=== PATIENT | female | born 1945 | race Caucasian/White ===

== ENCOUNTER 2018-02-28 10:52 | Emergency (ER) | payer MEDICARE, OTHER, SELFPAY ==
[2018-02-28 10:55] VITALS: BP 142/75; PULSE 86; RESP 20; TEMP 36.6; O2SAT 97; BMI 28.4
--- NOTE | 2018-02-28 11:02 | XR_ITS ---
XR shoulder LT min 2V Ordering Physician: Talat Coley MD Patient Age: 72 years: Female HISTORY: ITS.REASON: L CHEST AND SHOULDER PAIN INCREASES WITH MOVEMENT TECHNIQUE: 3 view left shoulder COMPARISON :CXR February 2018 chest FINDINGS The left shoulder glenohumeral joint is intact. Humeral head and neck intact. AC joint intact. Upper left chest appears stable. This study actually provides a better view of the left lung base, which appears clearer on this study than on the today's chest film IMPRESSION: Negative left shoulder.. Mild demineralization
--- NOTE | 2018-02-28 11:02 | XR_ITS ---
XR chest 2V Ordering Physician: Talat Coley MD Patient Age: 72 years: Female HISTORY: ITS.REASON: L CHEST AND SHOULDER PAIN TECHNIQUE: 2 view chest COMPARISON :December 10 & December 25, 2015 FINDINGS No significant new findings are slight coarsening markings toward the left base but I tend to favor this reflects a mild chronic changes in the anterior fat pad pattern at the anterior left base which is progressed slightly over time but similar to previous studies. No nothing definitely acute. The heart ellie and mediastinal structures satisfactory right lung clear. Chest wall ribs unremarkable. T-spine unremarkable. IMPRESSION: . basically stable chest nothing definitely acute. Slight progression of Anterior fat pad over time which accounts for of minimal density towards anterior left base
[2018-02-28 11:16] LABS: Basophils # 0.1 K/mm3 (0-0.2); Basophils % 0.6 % (0.1-2.0); Eosinophils # 0.3 K/mm3 (0.0-0.4); Eosinophils % 4.2 % (0.1-12.0); Hematocrit 41.8 % (37.0-47.0); Hemoglobin 13.4 g/dL (12.2-16.2); Lymphocytes # 2.1 K/mm3 (0.7-4.5); Lymphocytes % 27.5 K/mm3 (10-50); Mean Corpuscular HGB Conc 32.1 g/dL (31.8-35.4); Mean Corpuscular Hemoglobin 29.6 pg (27.0-31.2); Mean Corpuscular Volume 92.1 fl (81-99); Mean Platelet Volume 7.9 fl (7.4-10.4); Monocytes # 0.5 K/mm3 (0.1-1.0); Monocytes % 6.2 % (1.7-9.3); Neutrophils # 4.6 K/mm3 (1.8-7.8); Neutrophils % 61.5 % (37.0-80.0); Platelet Count 294 K/mm3 (142-424); Red Blood Count 4.53 M/mm3 (4.20-5.40); White Blood Count 7.5 K/mm3 (4.8-10.8)
[2018-02-28 11:49] LABS: Alanine Aminotransferase 19 U/L (12-78); Albumin/Globulin Ratio 1.3 (1.1-1.8); Alkaline Phosphatase 85 U/L (46-116); Anion Gap 11.7 mEq/L (5-15); Aspartate Amino Transferase 17 U/L (15-37); Bilirubin,Total 0.5 mg/dL (0.2-1.0); Blood Urea Nitrogen 24 mg/dL (7-18); CKMB Relative Index 1.6 U/L (0-4.0); Calcium 9.5 mg/dL (8.5-10.1); Carbon Dioxide 30 mmol/L (21.0-32.0); Chloride 104 mmol/L (98-107); Creatine Kinase 107 U/L (26-192); Creatine Kinase MB 1.7 ng/ml (0.0-3.6); Creatinine Clearance Estimated 62 mL/min (0-300); Creatinine,Serum 1.05 mg/dL (0.55-1.02); Estimated Glomerular Filt Rate 52 ml/min (>60); GFR (African American) 63 ML/MIN (>60); Globulin 3.2 gm/dl (1.3-3.2); Glucose 87 mg/dL (74-106); Potassium 3.7 mmoL/L (3.5-5.1); Sodium 142 mmol/L (136-145); Total Protein,Serum 7.2 gm/dL (6.4-8.2); Troponin I < 0.02 ng/ml (0.00-0.06)
[2018-02-28 12:00] VITALS: BP 124/98; PULSE 70; RESP 18; TEMP 36.7; O2SAT 95
--- NOTE | 2018-02-28 12:12 | HMH.EDGENADL ---
ED Disposition Clinical Impression: Chest pain Left shoulder pain Qualifiers: Chronicity: acute Qualified Code(s): M25.512 - Pain in left shoulder Disposition: Home, Self-Care Condition on Discharge: Good Instructions: DI for Shoulder Pain, DI for Chest Pain Referrals: Carlitos Diaz APRN [Primary Care Provider] - Yasmany Rodríguez MD [Staff Physician] - Ashwin Crowell MD [Staff Physician] - Time of Disposition: 14:17 - Critical Care Critical Care Time: No Attestation: On 02/28/18, the high probability of a clinically significant, sudden or life threatening deterioration of the following system(s) required my full and direct attention, intervention and personal management. The time I documented below is in addition to time spent performing reported procedures but includes the following listed in this critical care notation. Medical Decision Making - Medical Records Medical records reviewed: Yes: I reviewed the patient's medical records. - Tavo Inquiry Pt receiving controlled substance: No Vital Signs: 02/28/18 10:55 02/28/18 12:00 02/28/18 12:36 Temperature 98 F 98.1 F Temperature Source Oral Oral Pulse Rate Pulse Rate [Right Radial] 86 70 69 Respiratory Rate 20 18 16 Blood Pressure Blood Pressure [Right Arm] 142/75 124/98 128/88 Blood Pressure Mean [Right Arm] 97 106 101 Blood Pressure Source [Right Arm] Automatic Cuff Automatic Cuff Blood Pressure Position [Right Arm] Supine Supine 02 Sat by Pulse Oximetry 97 95 100 Oxygen Delivery Method Room Air Room Air 02/28/18 13:55 02/28/18 14:44 Temperature 97.4 F L 98.2 F Temperature Source Oral Pulse Rate 71 Pulse Rate [Right Radial] 90 Respiratory Rate 16 18 Blood Pressure 143/67 Blood Pressure [Right Arm] 128/74 Blood Pressure Mean [Right Arm] 92 Blood Pressure Source [Right Arm] Automatic Cuff Blood Pressure Position [Right Arm] Supine 02 Sat by Pulse Oximetry 95 Oxygen Delivery Method Room Air Room Air - Lab Data Lab results reviewed: Yes: I reviewed the patient's lab results. Lab Results 02/28/18 11:00: WBC 7.5, RBC 4.53, Hgb 13.4, Hct 41.8, MCV 92.1, MCH 29.6, MCHC 32.1, RDW 13.0, Plt Count 294, MPV 7.9, Neut % (Auto) 61.5, Lymph % (Auto) 27.5, [place] % (Auto) 6.2, Eos % (Auto) 4.2, Baso % (Auto) 0.6, Neut # (Auto) 4.6, Lymph # (Auto) 2.1, [place] # (Auto) 0.5, Eos # (Auto) 0.3, Baso # (Auto) 0.1 02/28/18 11:00: Sodium 142, Potassium 3.7, Chloride 104, Carbon Dioxide 30, Anion Gap 11.7, BUN 24 H, Creatinine 1.05 H, Estimated Creat Clear 62, Estimated GFR 52 L, Est GFR ( Amer) 63, Glucose 87, Calcium 9.5, Total Bilirubin 0.5, AST 17, ALT 19, Alkaline Phosphatase 85, Total Creatine Kinase 107, CK-MB (CK-2) 1.7, CK-MB (CK-2) Rel Index 1.6, Troponin I < 0.02, Total Protein 7.2, Albumin 4.0, Globulin 3.2, Albumin/Globulin Ratio 1.3 02/28/18 13:20: Total Creatine Kinase 91, CK-MB (CK-2) 1.4, CK-MB (CK-2) Rel Index 1.5, Troponin I < 0.02 Result diagrams: 02/28/18 11:00 02/28/18 11:00 - Radiology Data #1 Image(s): Chest Image Reviewed: Yes I reviewed the patient's radiology results, Yes I reviewed the patient's radiology image, Yes I have reviewed radiologist's interpretation Preliminary Findings: Normal/NAD #2 Image(s): Shoulder (left) Image Reviewed: Yes I reviewed the patient's radiology results, Yes I reviewed the patient's radiology image, Yes I have reviewed radiologist's interpretation Preliminary Findings: Normal/NAD - ECG Data Tracing #1 I reviewed this ECG and interpreted as documented below: ECG normal with no acute: arrhythmias, ischemia, conduction abnormalities, chamber hypertrophy Normal Sinus Rhythm: Yes - Reevaluation(s) Time: 14:00 Reevaluation #1: Upon reevaluation patient appears stable medical condition, no acute distress. Advised patient to follow-up with both brim stretcher Dr. Crowell, as well as the orthopod Dr. Teagan, within the next 2 days. If unable to see either
[2018-02-28 12:36] VITALS: BP 128/88; PULSE 69; RESP 16; O2SAT 100
[2018-02-28 13:55] VITALS: BP 128/74; PULSE 90; RESP 16; TEMP 36.3; O2SAT 95
[2018-02-28 14:02] LABS: CKMB Relative Index 1.5 U/L (0-4.0); Creatine Kinase 91 U/L (26-192); Creatine Kinase MB 1.4 ng/ml (0.0-3.6); Troponin I < 0.02 ng/ml (0.00-0.06)
[2018-02-28 14:44] VITALS: BP 143/67; PULSE 71; RESP 18; TEMP 36.8; O2SAT 95
== END 2018-02-28 14:45 | disposition home or self-care (01) ==
PROVIDERS: Emergency Provider Emergency Medicine; Family Provider Emergency Medicine; PCP Nurse Practitioner Family
DX: R07.9 Chest pain, unspecified (principal); M25.512 Pain in left shoulder; J44.9 Chronic obstructive pulmonary disease, unspecified; Z79.82 Long term (current) use of aspirin
CPT/HCPCS: 71046; 73030; 80053; 82550; 82553; 84484; 85025; 93005; 99283

== ENCOUNTER → 2018-03-15 09:51 | Outpatient (CLI) | payer MEDICARE, OTHER, SELFPAY ==
--- NOTE | 2018-03-15 09:54 | CT_ITS ---
CT heart w calcium score INDICATION: ITS.REASON: left arm pain, dyspnea ORDERING PHYSICIAN: Ulysses Martinez MD PATIENT AGE: 72 years TECHNIQUE: Axial images are obtained without contrast. Sagittal and coronal reformatted images are reviewed as well. All CT scans at the facility use one or more dose reduction, viz: automated exposure control; ma/kV adjustment per patient size (including targeted exams where dose is matched to indication; i.e. head); or iterative reconstruction technique. FINDINGS: Coronary calcium score is 0 indicating very low cardiovascular disease risk. Incidental note is made of a 6 mm noncalcified nodule in the right perihilar region. There is a 3 mm noncalcified nodule in the left lower lobe. IMPRESSION: Coronary artery calcium score of 0 indicating very low cardiovascular disease risk Indeterminate 6 mm right upper lobe nodule. Consider [address] follow-up to confirm stability
== END ==
PROVIDERS: Family Provider Emergency Medicine; PCP Nurse Practitioner Family; Visit Provider Internal Medicine Cardiovascular Disease
DX: Z82.49 Family history of ischemic heart disease and other diseases of the circulatory system (principal); M25.512 Pain in left shoulder; R06.09 Other forms of dyspnea
CPT/HCPCS: 75571

== ENCOUNTER → 2018-03-21 06:18 | Outpatient (CLI) | payer MEDICARE, OTHER, SELFPAY ==
--- NOTE | 2018-03-21 06:20 | NM_ITS ---
CARDIOLITE SPECT MYOCARDIAL PERFUSION SCAN, REST AND STRESS: EXERCISE STRESS [facility] REVIEW QGS EF AND WALL MOTION EVALUATION: QPS - PERFUSION EVALUATION HISTORY: SOB DOSE: 10.09 mCi technetium 99m mibi intravenously at rest followed by 30.6 mCi technetium 99m mibi following the intravenous ministration of 0.4 mg of Lexiscan. Resting blood pressure is 160/76. Stress blood pressure 129/58. FINDINGS: Ejection fraction is calculated to be 81. Uniform myocardial activity for stress and rest. IMPRESSION: No scintigraphic evidence of Lexiscan-induced myocardial ischemia. Hyperdynamic ejection fraction normal wall motion
--- NOTE | 2018-03-21 06:20 | CA_ITS ---
PROCEDURE: INDICATIONS FOR THE TEST: Chest pain COPD+ Heart Murmur Tobacco Smoking Palpitations Fatigue Syncope Edema+ Hypertension Diabetes Mellitus Rheumatic Fever SOB+RAY+Obesity Hyperlipidemia Family History HD+ Additional History left arm pain PATIENT INFORMATION HEIGHT: 66 WEIGHT: 178 GENDER: Female B/P: 121/69 2-D/M-MODE INTERPRETATION: 2-D MEASUREMENTS OBSERVED VALUES IN CMS Right Ventricular Dimension (RVDd) 2.0 Interventricular Septum (Thickness)(IVsd) 1.1 Left Ventricular Internal Dimensions(LVIDd) 3.4 Left Ventricular Posterior Wall (Thickness)(LVPWd) 1.2 Aortic Root 2.7 Aortic Cusp Separation 2.0 Left Atrial Dimensions (LAD) 2.8 2D 1. Left atrium is mildly enlarged, left ventricle is normal size, there is mild concentric left ventricular hypertrophy, visually estimated ejection fraction 55% with no obvious regional wall motion abnormality. 2. The right atrium and right ventricle are normal size and contractility. 3. The aortic valve is minimally thickened and fibrosed. 4. The mitral and tricuspid valve are structurally normal. 5. The pulmonic valve is poorly visualized. 6. No significant pericardial effusion noted. DOPPLER INTERROGATION: Doppler interrogation of the aortic, mitral and tricuspid valvular presence of mild mitral and tricuspid regurgitation, tricuspid and jet velocity insufficient for calculation of the right ventricular systolic pressure, grade 1 diastolic dysfunction seen without tissue Doppler evidence of raised left atrial pressure. CONCLUSION: 1. Mildly enlarged left atrium, normal left ventricular size, mild concentric left ventricular hypertrophy, visually estimated ejection fraction 55% with no obvious regional wall motion abnormality, grade 1 diastolic dysfunction seen without tissue Doppler evidence of raised left atrial pressure. 2. Mild mitral and tricuspid regurgitation 3. No significant pericardial effusion noted.
--- NOTE | 2018-03-21 07:56 | HMH.ITSHM ---
aspirin breo ventolin
== END ==
PROVIDERS: Family Provider Emergency Medicine; PCP Nurse Practitioner Family; Visit Provider Internal Medicine Cardiovascular Disease
DX: R06.00 Dyspnea, unspecified (principal); M25.512 Pain in left shoulder; Z82.49 Family history of ischemic heart disease and other diseases of the circulatory system
CPT/HCPCS: 78452; 93017; 93306; A9502; J2785

== ENCOUNTER → 2018-08-01 11:17 | Outpatient (CLI) | payer MEDICARE, OTHER, SELFPAY | PROVIDERS: Visit Provider Physician Assistant | DX: R30.9 Painful micturition, unspecified (principal) | CPT/HCPCS: 87086; 87210 ==

== ENCOUNTER → 2019-10-21 11:14 | Outpatient (CLI) | payer MEDICARE, OTHER, SELFPAY ==
--- NOTE | 2019-10-21 11:20 | XR_ITS ---
PROCEDURE: XR CHEST 2V CLINICAL HISTORY: cough COMPARISON: CXR2V XR chest 2V from 02/28/2018 CXR2V XR chest 2V from 09/01/2018 XR CHEST 2V from 08/24/2019 FINDINGS: The cardiomediastinal silhouette and pulmonary vascularity are within normal limits. The lungs are clear without infiltrates, suspicious nodules, or pleural effusions. There are chronic changes in the left lung base. Degenerative change thoracic spine. IMPRESSION: No acute findings. Dictated by: Bret Cunningham MD 10/21/2019 13:13 Electronically signed by Bret Cunningham MD in [place] 10/21/2019 13:13
== END ==
PROVIDERS: PCP Emergency Medicine; Visit Provider Nurse Practitioner Family
DX: R05 Cough (principal); R06.2 Wheezing
CPT/HCPCS: 71046

== ENCOUNTER → 2019-11-18 11:13 | Outpatient (CLI) | payer MEDICARE, OTHER, SELFPAY ==
--- NOTE | 2019-11-18 11:17 | XR_ITS ---
PROCEDURE: XR CHEST 2V CLINICAL HISTORY: cough COMPARISON: CXR2V XR chest 2V from 09/01/2018 XR CHEST 2V from 08/24/2019 XR CHEST 2V from 10/21/2019 FINDINGS: The cardiomediastinal silhouette and pulmonary vascularity are within normal limits. The lungs are clear without infiltrates, suspicious nodules, or pleural effusions. No acute bony abnormalities. IMPRESSION: No acute findings. Dictated by: Russell Farley 11/18/2019 18:56 Electronically signed by Russell Farley in [place] 11/18/2019 18:56
== END ==
PROVIDERS: PCP Emergency Medicine; Visit Provider Nurse Practitioner Family
DX: R05 Cough (principal)
CPT/HCPCS: 71046

== ENCOUNTER → 2020-04-16 10:31 | Outpatient (CLI) | payer MEDICARE, OTHER, SELFPAY ==
--- NOTE | 2020-04-16 10:37 | XR_ITS ---
PROCEDURE: XR KNEE LT 3V CLINICAL INDICATION: Left knee pain COMPARISON: KNEE3R KNEE-3 VIEWS-RT from 02/27/2015 KNEE3R KNEE-3 VIEWS-RT from 09/01/2015 FINDINGS: No fracture or dislocation. No lytic or blastic change. There is normal mineralization. There are mild osteoarthritic changes of the medial compartment. There is a small suprapatellar effusion. Other findings:None. IMPRESSION: Mild osteoarthritis with small suprapatellar effusion Dictated by: Bret Cunningham MD 04/16/2020 12:09 Electronically signed by Bret Cunningham MD in [place] 04/16/2020 12:09
== END ==
PROVIDERS: PCP Emergency Medicine; Visit Provider Physician Assistant
DX: M25.562 Pain in left knee (principal)
CPT/HCPCS: 73562

== ENCOUNTER → 2020-04-30 16:39 | Outpatient (CLI) | payer MEDICARE, OTHER, SELFPAY ==
[2020-04-30 16:41] LABS: Microscopic, Urine URINE MICROSCOPIC (MICROSCOPIC)
[2020-04-30 16:49] LABS: Bilirubin,Urine Negative (Negative); Blood, Urine Negative (Negative); Glucose,Urine (UA) 1+ (Negative); Ketones,Urine 1+ (Negative); Leukocyte Esterase,Urine 1+ (Negative); Nitrate,Urine POSITIVE (Negative); PH,Urine 6.5 (5.0-8.5); Protein,Urine 3+ (Negative); Urobilinogen,Urine >=8.0 EU/dl (0.2)
[2020-04-30 17:25] LABS: Color,Urine Red (Yellow)
[2020-04-30 17:26] LABS: Appearance,Urine Turbid (Clear)
[2020-04-30 17:27] LABS: Bacteria,Urine Trace /lpf; RBC,Urine 50-100 #/hpf (0-3)
== END ==
PROVIDERS: Visit Provider Nurse Practitioner Family
DX: R30.0 Dysuria (principal)
CPT/HCPCS: 81001; 87086; 87088; 87186

== ENCOUNTER → 2020-05-06 16:52 | Outpatient (CLI) | payer MEDICARE, OTHER, SELFPAY | PROVIDERS: Visit Provider Physician Assistant | DX: N39.0 Urinary tract infection, site not specified (principal) | CPT/HCPCS: 87086 ==

== ENCOUNTER 2020-08-21 12:15 | Emergency (ER) | payer MEDICARE, OTHER, SELFPAY ==
[2020-08-21 12:24] VITALS: BP 141/65; PULSE 82; RESP 20; TEMP 36.7; O2SAT 97; BMI 28.4
--- NOTE | 2020-08-21 12:47 | HMH.EDUTC ---
[facility] [place] Disposition Clinical Impression: COPD exacerbation Disposition: Home, Self-Care Condition on Discharge: Good Instructions: DI for Chronic Obstructive Pulmonary Disease Additional Instructions: Drink plenty of fluids. Take tylenol or ibuprofen for pain or fever. Take the medications as directed. Continue to take your inhalers as prescribed. Follow up with your regular doctor. GO TO THE ER FOR ANY WORSENING SYMPTOMS Prescriptions: predniSONE [Deltasone 10mg tablet] 10 mg PO DAILY 9 Days #21 tab Transmission Status: Received by [id number] Benzonatate [Tessalon Perle 100mg Cap] 100 mg PO TIDP PRN #30 cap PRN Reason: Cough Transmission Status: Received by [facility] Azithromycin [Z-Kobi 250mg Tab*] 250 mg PO UD DOSE PK #6 tab Transmission Status: Received by [id number] Referrals: Carlos Mendieta MD [Primary Care Provider] - Time of Disposition: 12:56 Medical Decision Making - Medical Records Medical records reviewed: No: I reviewed the patient's medical records. - Tavo Inquiry Pt receiving controlled substance: No Vital Signs: 08/21/20 12:24 08/21/20 13:06 Temperature 98.0 F 98.0 F Temperature Source Oral Oral Pulse Rate 82 Pulse Rate [Radial] 82 Respiratory Rate 20 20 Blood Pressure 141/65 H Blood Pressure [Right Arm] 141/65 H Blood Pressure Mean [Right Arm] 90 Blood Pressure Source Automatic Cuff Blood Pressure Source [Right Arm] Automatic Cuff Blood Pressure Position Sitting Blood Pressure Position [Right Arm] Sitting 02 Sat by Pulse Oximetry 97 Oxygen Delivery Method Room Air Room Air [facility] [place] HPI - General Stated complaint: sob back pain Time Seen by Provider: 08/21/20 12:47 Mode of Arrival: Ambulatory Source of Information: Patient Limitations: No Limitations Description of Symptoms (Recalled from Triage Doc. by RN): States that her COPD is acting up. Has been coughing a lot and thinks it has done something to her back. HEENT Symptoms (Recalled from RN notes): No Resp Symptoms (Recalled from RN notes): Yes Skin Symptoms (Recalled from RN notes): No MS Symptoms (Recalled from RN notes): Yes Functional Status (Recalled from RN notes): wnl - History of Present Illness Provider Complaint: She c/o 3 days of worsening cough and chest congestion. She states that she has a history copd and she feels like she is getting a flare up. She denies any chest pain. - Related Data Home Medications Medication Instructions Recorded Confirmed Aspirin [Aspirin 81mg chewable 81 mg PO DAILY 02/28/18 07/09/20 tab] Previous Rx's Medication Instructions Recorded loratadine 10 mg tablet 10 mg PO DAILY #30 tab 09/10/18 fluticasone furoate 100 1 inh INHALATION DAILY #28 each 02/10/20 mcg-vilanterol 25 mcg/dose inhalation powder albuterol sulfate 90 mcg/actuation 2 puff INHALATION Q4-6H PRN #18 g 07/01/20 aerosol inhaler ipratropium 0.5 mg-albuterol 3 mg 3 ml INHALATION QID PRN #120 neb 07/01/20 (2.5 mg base)/3 mL nebulization soln levofloxacin 500 mg tablet 500 mg PO Q24H 10 Days #10 tab 07/01/20 diclofenac sodium 1 % topical gel 2 g TOPICAL QID PRN #100 g 07/09/20 Azithromycin [Z-Kobi 250mg Tab*] 250 mg PO UD DOSE PK #6 tab 08/21/20 Benzonatate [Tessalon Perle 100mg 100 mg PO TIDP PRN #30 cap 08/21/20 Cap] predniSONE [Deltasone 10mg tablet] 10 mg PO DAILY 9 Days #21 tab 08/21/20 Allergies Allergy/AdvReac Type Severity Reaction Status Date / Time No Known Allergies Allergy Verified 07/09/20 13:51 - Worker's Comp Is this a Worker's Comp case?: No [facility] History - Hepatitis A Screen Drug use history?: No High risk sexual behaviors?: No History of sexually transmitted infection?: No Currently employed?: No Childcare worker?: No Do you have indoor plumbing?: Yes Do you have electricity?: Yes Attestation statement:: This patient has been screened for Hepatitis A risk factors. I have reviewed the pa
[2020-08-21 13:06] VITALS: BP 141/65; PULSE 82; RESP 20; TEMP 36.7; O2SAT 97
== END 2020-08-21 13:07 | disposition home or self-care (01) ==
PROVIDERS: Emergency Provider Nurse Practitioner Family; PCP Emergency Medicine
DX: J44.1 Chronic obstructive pulmonary disease with (acute) exacerbation (principal); M54.6 Pain in thoracic spine; Z79.899 Other long term (current) drug therapy
CPT/HCPCS: G0463; 99201

== ENCOUNTER → 2020-08-24 19:25 | Outpatient (CLI) | payer MEDICARE, OTHER, SELFPAY | PROVIDERS: Visit Provider Physician Assistant | DX: N39.0 Urinary tract infection, site not specified (principal) | CPT/HCPCS: 87086 ==

== ENCOUNTER 2021-06-06 10:56 | Emergency (ER) | payer MEDICARE, OTHER, SELFPAY ==
[2021-06-06 10:57] VITALS: BP 147/78; PULSE 98; RESP 18; TEMP 36.7; O2SAT 96; BMI 30.4
[2021-06-06 11:10] VITALS: BP 147/78; PULSE 98; RESP 18; TEMP 36.7; O2SAT 96; BMI 30.4
--- NOTE | 2021-06-06 11:24 | XR_ITS ---
PROCEDURE INFORMATION: Exam: XR Chest Exam date and time: 06/06/2021 11:24 AM Age: 75 years old Clinical indication: Patient HX: Cough, copd, nonsmoker TECHNIQUE: Imaging protocol: XR of the chest. Views: 2 views. COMPARISON: CR XR CHEST 2V 11/18/2019 11:22 AM FINDINGS: Lungs: Unremarkable. No consolidation. Pleural spaces: Unremarkable. No pleural effusion. No pneumothorax. Heart/Mediastinum: Unremarkable. No cardiomegaly. Bones/joints: Unremarkable. IMPRESSION: No acute findings.
--- NOTE | 2021-06-06 11:37 | HMH.EDUTC ---
[facility] [place] Disposition Clinical Impression: COPD exacerbation Disposition: Home, Self-Care Condition on Discharge: Good Instructions: Chronic Obstructive Pulmonary Disease, DI for Chronic Obstructive Pulmonary Disease, Prednisone, Cefdinir Additional Instructions: ? Start antibiotic today. Be sure to complete entire prescription even if feeling better ? Monitor temp. Tylenol every 4 hours as needed and / or ibuprofen every 6 hours as needed ( As long as your primary care physician has told you that it ok to take both. For fever/aches/pains ER if no less than 101 despite Tylenol or Motrin ? Humidifier/vaporizer or hot steamy shower ? Inhaler every 4-6 hours as needed like we discussed. If unsure how to use it, ask pharmacist to demonstrate how. Should help open airways and improve cough, wheezing, and shortness of breath ? *Start steroid today. Helps with inflammation therefore, cough and wheezing. Follow directions on the package. Reviewed side effects. Patient reports taking them before. Follow up IMMEDIATELY for new or worsening of symptoms OR no noticeable improvement over the next 48-72 hours. 911 immediately for any life threatening symptoms such as chest pain or difficulty breathing Prescriptions: Cefdinir [Omnicef 300mg Capsule] 300 mg PO BID #20 cap Transmission Status: Received by [id number] predniSONE [Prednisone 20mg Tab] 20 mg PO BID 5 Days #10 tab Transmission Status: Received by [facility] Referrals: Isabela Parr PA [Primary Care Provider] - As needed Medical Decision Making - Tavo Inquiry Pt receiving controlled substance: No Tavo was queried for this patient: No Vital Signs: 06/06/21 10:57 06/06/21 11:10 06/06/21 12:22 Temperature 98.1 F 98.1 F 98.1 F Temperature Source Oral Oral Pulse Rate 98 H Pulse Rate [Right] 98 H 98 H Respiratory Rate 18 18 18 Blood Pressure 147/78 H Blood Pressure [Right Arm] 147/78 H 147/78 H Blood Pressure Mean [Right Arm] 101 101 Blood Pressure Source [Right Arm] Automatic Cuff Blood Pressure Position [Right Arm] Sitting 02 Sat by Pulse Oximetry 96 96 Oxygen Delivery Method Room Air Room Air Orders (Tests/Meds): ED MEDICATIONS Discontinued Medications Generic Name Dose Route Start Last Admin Trade Name Freq PRN Reason Stop Dose Admin Albuterol/Ipratropium 3 ml 06/06/21 11:57 06/06/21 12:07 Ipratropium/Albuterol 3 Ml Neb IH 06/06/21 11:58 3 ml ONCE ONE Administration - Radiology Data #1 Image(s): Chest Image Reviewed: Yes I reviewed the patient's radiology image w/the ED provider Discussed with ED physician no acute changes Medical Decision Narrative: Patient states that she has taken Prednisone in the past with out complications or reactions [facility] [place] HPI - General Stated complaint: sob Time Seen by Provider: 06/06/21 11:37 Mode of Arrival: Ambulatory Source of Information: Patient Limitations: No Limitations Description of Symptoms (Recalled from Triage Doc. by RN): PATIENT C/O SOA X 2 WEEKS. SHE WAS SEEN BY PCP ON 04/28/21 AND WAS GIVEN AMOXICILLIN, BUT STOPPED TAKING IT BECAUSE IT MADE HER SICK HEENT Symptoms (Recalled from RN notes): No Resp Symptoms (Recalled from RN notes): Yes Skin Symptoms (Recalled from RN notes): No MS Symptoms (Recalled from RN notes): No Functional Status (Recalled from RN notes): WNL - History of Present Illness Provider Complaint: Patient states that she thinks she is having an exacerbation of her COPD States that she does this sometimes and has to get some antibiotics and steriods to clear her up States that she seen her PCP about a month ago for this and was prescribed Amoxicillin but she stopped taking it because it upset her stomach States that she has been having sinus congestion, cough and feeling SOA at times - Related Data Home Medications Medication Instructions Recorded Confirmed Aspirin [Aspirin 81mg chewable 81 mg PO DAILY 02/28/18 06
[2021-06-06 12:22] VITALS: BP 147/78; PULSE 98; RESP 18; TEMP 36.7; O2SAT 96
== END 2021-06-06 12:38 | disposition home or self-care (01) ==
PROVIDERS: Emergency Provider Nurse Practitioner; PCP Physician Assistant
DX: J44.1 Chronic obstructive pulmonary disease with (acute) exacerbation (principal)
CPT/HCPCS: G0463; 71046; 99202

== ENCOUNTER 2021-08-03 09:31 | Emergency (ER) | payer MEDICARE, OTHER, SELFPAY ==
[2021-08-03 09:33] VITALS: BP 148/81; PULSE 90; RESP 18; TEMP 36.8; O2SAT 97; BMI 28.4
--- NOTE | 2021-08-03 10:00 | HMH.EDEXTP ---
ED Disposition Clinical Impression: Dvt femoral (deep venous thrombosis) Qualifiers: Chronicity: acute Laterality: left Qualified Code(s): I82.412 - Acute embolism and thrombosis of left femoral vein Disposition: Home, Self-Care Condition on Discharge: Fair Additional Instructions: Please follow-up with your primary care provider in about 3 to 4 days. Even if you feel well. Return to the emergency department immediately if you feel chest pain or shortness of breath. Take the medications as prescribed. Prescriptions: Apixaban [Eliquis 5mg tab] 5 mg PO BID #60 tab Transmission Status: Received by [id number] Referrals: Isabela Parr PA [Primary Care Provider] - - Critical Care Critical Care Time: No Attestation: On , the high probability of a clinically significant, sudden or life threatening deterioration of the following system(s) required my full and direct attention, intervention and personal management. The time I documented below is in addition to time spent performing reported procedures but includes the following listed in this critical care notation. Medical Decision Making - Medical Records Medical records reviewed: Yes: I reviewed the patient's medical records. - Tavo Inquiry Pt receiving controlled substance: No Vital Signs: 08/03/21 09:33 08/03/21 11:00 Temperature 98.3 F Temperature Source Oral Pulse Rate 78 Pulse Rate [Right] 90 Respiratory Rate 18 16 Blood Pressure 126/64 Blood Pressure [Right Arm] 148/81 H Blood Pressure Mean [Right Arm] 103 Blood Pressure Source Automatic Cuff Blood Pressure Position Sitting 02 Sat by Pulse Oximetry 97 98 Oxygen Delivery Method Room Air Room Air - Lab Data Lab results reviewed: Yes: I reviewed the patient's lab results. Lab Results 08/03/21 10:00: WBC 11.2 H, RBC 4.43, Hgb 12.7, Hct 40.3, MCV 91.0, MCH 28.6, MCHC 31.4 L, RDW 13.5, Plt Count 221, MPV 8.5, Neut % (Auto) 72.6, Lymph % (Auto) 17.8, [place] % (Auto) 6.8, Eos % (Auto) 2.2, Baso % (Auto) 0.5, Neut # (Auto) 8.1 H, Lymph # (Auto) 2.0, [place] # (Auto) 0.8, Eos # (Auto) 0.3, Baso # (Auto) 0.1 08/03/21 10:00: PT 11.0, INR 0.93, APTT 28.2 08/03/21 10:00: Sodium 138, Potassium 4.3, Chloride 103, Carbon Dioxide 28, Anion Gap 11.3, BUN 18 H, Creatinine 1.10 H, Estimated Creat Clear 57, Estimated GFR 49 L, Est GFR ( Amer) 59, Glucose 99, Calcium 9.4, Total Bilirubin 0.6, AST 26, ALT 12, Alkaline Phosphatase 89, Total Protein 6.7, Albumin 4.0, Globulin 2.7, Albumin/Globulin Ratio 1.5 Result diagrams: 08/03/21 10:00 08/03/21 10:00 Orders (Tests/Meds): ED MEDICATIONS Discontinued Medications Generic Name Dose Route Start Last Admin Trade Name Freq PRN Reason Stop Dose Admin Apixaban 5 mg 08/03/21 11:13 08/03/21 11:46 Apixaban 5mg Tablet PO 08/03/21 11:14 5 mg ONCE ONE Administration - Physician Consults Physician Consulted: Isabela Parr Time: 11:08 Comment/Response: Ms. Isabela Parr has agreed to see the patient in the office in follow-up and she has agreed with the plan of starting Eliquis. Medical Decision Narrative: The patient presents to the emergency department complaining of left lower extremity swelling and tenderness and pain. This has been ongoing for about 3 days. 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 Physical examination was highly suggestive of DVT. A venous Doppler was performed and showed extensive DVT. Therefore, the patient will have to be started on anticoagulation. The patient has no symptoms of pulmonary embolus at this time. Patient's creatinine is 1.1. Therefore, I feel that she is a candidate for Eliquis. I will discuss this with the patient's primary care physician prior to starting therapy. Extremity Problem HPI - General Chief complaint: Extremity Problem,Nontraumatic Stated complaint: left leg swollen Time Seen by Provider: 08/03/21 10:00 Mode of Arrival: Ambulatory Limitations
--- NOTE | 2021-08-03 10:02 | CA_ITS ---
APPROVED REPORT Left Lower Extremity Venous Study for DVT. [employer]er: MARLENE Indications Lower Extremity Pain: Left Lower Extremity Edema: Left Swelling and pain LLE (Calf) x 3 days. Patient denies trauma. Past History DVT : Left Date : 1999 Medications Aspirin 81 mg ASA daily Vein Imaging CFV (L): Thrombus, Non-Compressible FEM (L): Thrombus, Non-Compressible POP (L): Thrombus, Non-Compressible PTV (L): Thrombus GSV (L): Thrombus Peroneals (L):Thrombus GAS (L): Thrombus Findings DVT seen in CFV, SFV, POPV, PTV, PERV, gastrocnemius and soleal veins. SVT seen in proxmial GSV in the left groin. Conclusion DVT seen in CFV, SFV, POPV, PTV, PERV, gastrocnemius and soleal veins. SVT seen in proxmial GSV in the left groin. Electronically signed by : Bret Cunningham MD 08/03/2021 16:05:35
--- NOTE | 2021-08-03 10:33 | PC.NURSE ---
US DONE AT BEDSIDE.
[2021-08-03 10:40] LABS: Chloride 103 mmol/L (98-107); Potassium 4.3 mmoL/L (3.5-5.1); Sodium 138 mmol/L (136-145)
[2021-08-03 10:42] LABS: Blood Urea Nitrogen 18 mg/dl (7-17); Creatinine Clearance Estimated 57 mL/min (50-200); Estimated Glomerular Filt Rate 49 ml/min (>60); GFR (African American) 59 ML/MIN (>60)
[2021-08-03 10:43] LABS: Alanine Aminotransferase 12 U/L (12-78); Albumin/Globulin Ratio 1.5 (1.1-1.8); Alkaline Phosphatase 89 U/L (38-126); Anion Gap 11.3 mEq/L (5-15); Aspartate Amino Transferase 26 U/L (14-36); Bilirubin,Total 0.6 mg/dl (0.2-1.3); Calcium 9.4 mg/dl (8.4-10.2); Carbon Dioxide 28 mmol/L (22.0-30.0); Globulin 2.7 g/dL (1.3-3.2); Glucose 99 mg/dl (74-100); Total Protein,Serum 6.7 g/dl (6.3-8.2)
[2021-08-03 10:50] LABS: Activated Partial Thrombo Time 28.2 seconds (22.8-30.6)
[2021-08-03 11:00] VITALS: BP 126/64; PULSE 78; RESP 16; O2SAT 98
[2021-08-03 11:01] LABS: INR 0.93 (0.9-1.1)
--- NOTE | 2021-08-03 11:35 | PC.NURSE ---
CONTACTED PHARMACY, PHARMACY TO TUBE DOWN JOSE MIGUELQUOBEY.
[2021-08-03 11:45] LABS: Basophils # 0.1 K/mm3 (0-0.2); Basophils % 0.5 % (0.1-2.0); Eosinophils # 0.3 K/mm3 (0.0-0.4); Eosinophils % 2.2 % (0.1-12.0); Hematocrit 40.3 % (37.0-47.0); Hemoglobin 12.7 g/dL (12.2-16.2); Lymphocytes % 17.8 % (10-50); Mean Corpuscular HGB Conc 31.4 g/dL (31.8-35.4); Mean Corpuscular Hemoglobin 28.6 pg (27.0-31.2); Mean Platelet Volume 8.5 fl (7.4-10.4); Monocytes # 0.8 K/mm3 (0.1-1.0); Monocytes % 6.8 % (1.7-9.3); Neutrophils # 8.1 K/mm3 (1.8-7.8); Neutrophils % 72.6 % (37.0-80.0); Platelet Count 221 K/mm3 (142-424); Red Blood Count 4.43 M/mm3 (4.20-5.40); Red Cell Distribution Width 13.5 % (11.5-17.5); White Blood Count 11.2 K/mm3 (4.8-10.8)
[2021-08-03 12:45] VITALS: BP 131/65; PULSE 82; RESP 16; TEMP 36.8; O2SAT 97
== END 2021-08-03 12:47 | disposition home or self-care (01) ==
PROVIDERS: Emergency Provider Emergency Medicine; PCP Physician Assistant
DX: I82.412 Acute embolism and thrombosis of left femoral vein (principal); J44.9 Chronic obstructive pulmonary disease, unspecified; Z86.718 Personal history of other venous thrombosis and embolism
CPT/HCPCS: 80053; 85025; 85610; 85730; 93971; 99283

== ENCOUNTER → 2021-09-07 12:04 | Outpatient (CLI) | payer MEDICARE, OTHER, SELFPAY ==
--- NOTE | 2021-09-07 12:25 | CT_ITS ---
PROCEDURE: CT LOWER LEG LT WO CON CLINICAL HISTORY: ACUTE EMBOLISM AND THROMBOSIS DEEP VEIN LT LOWER EXTREMITY COMPARISON: No exams were available for comparison TECHNIQUE: Axial images obtained with sagittal and coronal reformats. All CT scans at the facility use one or more dose reduction, viz: automated exposure control, ma/kV adjustment per patient size (including targeted exams where dose is matched to indication, i.e. head), or iterative reconstruction technique. FINDINGS: No acute fracture or dislocation. No lytic or blastic change. No abnormal fluid collections. No soft tissue masses. Minimal osteoarthritic changes are present at the knee. There is a small knee joint effusion. There is mild lateral subluxation of the patella. Varicosities are present in the lower leg and about the ankle IMPRESSION: Minimal osteoarthritic change of the knee with a small knee joint effusion Varicosities about ankle and lower leg Otherwise negative Dictated by: Bret Cunningham MD 09/08/2021 15:31 Bret Cunningham MD in [facility] 09/08/2021 15:31
[2021-09-07 12:35] LABS: Blood Urea Nitrogen 15 mg/dl (7-17); Estimated Glomerular Filt Rate 54 ml/min (>60); GFR (African American) 66 ML/MIN (>60)
--- NOTE | 2021-09-07 12:54 | CT_ITS ---
Procedure: CT ANGIO LE BI CLINICAL HISTORY: ACUTE EMBOLISM AND THROMBOSIS DEEP VEIN LT LOWER EXTREMITY COMPARISON: No exams were available for comparison TECHNIQUE: IV Contrast: 100ml Isovue 370 Axial images obtained with sagittal and coronal reformats. All CT scans at the facility use one or more dose reduction, viz: automated exposure control, ma/kV adjustment per patient size (including targeted exams where dose is matched to indication, i.e. head), or iterative reconstruction technique. FINDINGS: Abdominal aorta: The abdominal aorta and iliac arteries have an unremarkable appearance. No aneurysm or stenosis. Bilateral lower extremity runoff is unremarkable. No stenosis apparent. There is 3 vessel runoff to the ankle bilaterally. There is question of ostial stenosis involving the left renal artery as seen on the coronal images with some mild poststenotic dilatation the degree of stenosis is not able to be delineated Venous phase images demonstrates thrombus within the left femoral vein in the proximal mid and distal aspect with some minimal focal dilatation of the femoral vein distally at 1.5 cm and proximally at 1.3 cm. The thrombosis is not complete as there is some contrast outlining the thrombus. Veins below the knees are not well delineated. There is some minimal stranding of the fat around the femoral vein in the inguinal area and at the popliteal region consistent with thrombophlebitis. No obvious thrombus within the left external or common iliac vein. The left external and common iliac veins are small in nature. There is a small calcification within the left common femoral vein. Varicosities are present along the lower abdomen and pelvis anteriorly and in the lower leg on the left. There is mild subcutaneous edema about the left ankle. The girth of the left thigh and left leg is larger than the right side. Collateral veins are present in the left inguinal area and thigh Incidental note is made of a large gallstone at 2 cm. There are mild degenerative changes in the lumbar spine. There is right paracentral calcification at the L L1-L2 area and may be related to a disc osteophyte complex. Small right paracentral disc osteophyte complex noted at L2-L3 with bilateral foraminal narrowing. Partially calcified disc bulge is present at L5-S1. There is colonic diverticulosis but no evidence of diverticulitis. IMPRESSION: 1. 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 2. Unremarkable bilateral lower extremity arterial runoff. 3. The left external and common iliac veins are small but do not appear occluded. 4. Cholelithiasis. 5. Colonic diverticulosis Dictated by: Bret Cunningham MD 09/08/2021 15:51 Bret Cunningham MD in [facility] 09/08/2021 15:51
[2021-09-07 14:28] LABS: Anion Gap 11.1 mEq/L (5-15); Blood Urea Nitrogen 15 mg/dl (7-17); Calcium 9.4 mg/dl (8.4-10.2); Carbon Dioxide 27 mmol/L (22.0-30.0); Chloride 103 mmol/L (98-107); Estimated Glomerular Filt Rate 54 ml/min (>60); GFR (African American) 66 ML/MIN (>60); Glucose 96 mg/dl (74-100); Phosphorous 3.1 mg/dl (2.5-4.5); Potassium 4.1 mmoL/L (3.5-5.1); Sodium 137 mmol/L (136-145)
== END ==
PROVIDERS: Radiology Diagnostic Radiology; PCP Physician Assistant; Visit Provider Nurse Practitioner Family
DX: I82.492 Acute embolism and thrombosis of other specified deep vein of left lower extremity (principal)
CPT/HCPCS: 36415; 73700; 73701; 80069; 82565; 84520; Q9967

== ENCOUNTER 2021-10-01 09:29 | Emergency (ER) | payer MEDICARE, OTHER, SELFPAY ==
[2021-10-01] VITALS (7 sets, daily range): BP systolic 141–166; BP diastolic 57–73; PULSE 80–98; RESP 15–18; TEMP 36.8–37; O2SAT 95–100; BMI 27.4
--- NOTE | 2021-10-01 09:37 | HMH.EDGENADL ---
ED Disposition Clinical Impression: COPD exacerbation Acute bronchitis Qualifiers: Bronchitis organism: unspecified organism Qualified Code(s): J20.9 - Acute bronchitis, unspecified Disposition: Home, Self-Care Condition on Discharge: Good Instructions: DI for Chronic Obstructive Pulmonary Disease, DI for Acute Bronchitis Additional Instructions: Continue using breathing treatments 4 times a day. Zithromax and prednisone as prescribed. Follow-up with your primary care provider on Monday. Return to the emergency department if worsening shortness of breath. Prescriptions: predniSONE [Prednisone 20mg Tab] 20 mg PO BID #10 tab Transmission Status: Pending to [facility] Azithromycin [Zithromax 250mg tab] 250 mg PO DIRECTED #6 tab Transmission Status: Pending to [facility] Referrals: Isabela Parr PA [Primary Care Provider] - - Critical Care Critical Care Time: No Attestation: On 10/01/21, the high probability of a clinically significant, sudden or life threatening deterioration of the following system(s) required my full and direct attention, intervention and personal management. The time I documented below is in addition to time spent performing reported procedures but includes the following listed in this critical care notation. Medical Decision Making - Tavo Inquiry Pt receiving controlled substance: No Vital Signs: 10/01/21 09:30 10/01/21 10:20 10/01/21 10:50 Temperature 98.6 F Temperature Source Oral Pulse Rate 89 88 Pulse Rate [Right] 98 H Respiratory Rate 16 Blood Pressure [Right Arm] 166/73 H Blood Pressure Mean [Right Arm] 104 Blood Pressure Source [Right Arm] Automatic Cuff Blood Pressure Position [Right Arm] Sitting 02 Sat by Pulse Oximetry 98 Oxygen Delivery Method Room Air - Lab Data Lab Results 10/01/21 09:44: WBC 6.3, RBC 4.29, Hgb 12.3, Hct 39.3, MCV 91.5, MCH 28.6, MCHC 31.2 L, RDW 14.1, Plt Count 303, MPV 8.0, Neut % (Auto) 61.7, Lymph % (Auto) 22.6, [place] % (Auto) 4.4, Eos % (Auto) 10.2, Baso % (Auto) 1.2, Neut # (Auto) 3.9, Lymph # (Auto) 1.4, [place] # (Auto) 0.3, Eos # (Auto) 0.6 H, Baso # (Auto) 0.1 10/01/21 09:44: Sodium 138, Potassium 4.0, Chloride 104, Carbon Dioxide 27, Anion Gap 11.0, BUN 16, Creatinine 1.00, Estimated Creat Clear 60, Estimated GFR 54 L, Est GFR ( Amer) 66, Glucose 88, Calcium 9.3, Total Bilirubin 0.5, AST 27, ALT 18, Alkaline Phosphatase 74, Troponin I < 0.01, Total Protein 7.1, Albumin 4.3, Globulin 2.8, Albumin/Globulin Ratio 1.5 Result diagrams: 10/01/21 09:44 10/01/21 09:44 Orders (Tests/Meds): ED MEDICATIONS Discontinued Medications Generic Name Dose Route Start Last Admin Trade Name Freq PRN Reason Stop Dose Admin Albuterol/Ipratropium 3 ml 10/01/21 10:06 10/01/21 10:20 Ipratropium/Albuterol 3 Ml [facility] 10/01/21 10:07 3 ml ONCE ONE Administration Albuterol/Ipratropium 3 ml 10/01/21 10:44 10/01/21 10:50 Ipratropium/Albuterol 3 Ml [facility] 10/01/21 10:45 3 ml ONCE ONE Administration Methylprednisolone Sodium Succinate 125 mg 10/01/21 10:06 10/01/21 10:14 Methylprednisolone Sod Succ 125mg Vial IV 10/01/21 10:07 125 mg ONCE ONE Administration ORDERS Category Date Time Status Chest XR 2 view (NOT portable) [XR chest 2V] Stat Exams 10/01/21 09:51 Taken Troponin I Q3H Lab 10/01/21 13:00 Ordered Troponin I Q3H Lab 10/01/21 16:00 Ordered - Radiology Data #1 Image(s): Chest Image Reviewed: Yes I reviewed the patient's radiology image, Yes I have reviewed radiologist's interpretation Preliminary Findings: Normal/NAD - ECG Data Tracing #1 EKG interpreted by Octavio Sena MD: Rhythm: sinus Rate: 90 [place]: normal Ectopy: none Conduction: normal ST Segment Changes: none T Wave Changes: none Q Waves: none No evidence of acute ischemia or injury Normal electrocardiogram - Reevaluation(s) Time: 10:44 Reev
--- NOTE | 2021-10-01 09:51 | XR_ITS ---
PROCEDURE: XR CHEST 2V CLINICAL HISTORY: soa/cough COMPARISON: CR XR CHEST 2V from 10/21/2019 CR XR CHEST 2V from 11/18/2019 CR XR CHEST 2V from 06/06/2021 FINDINGS: The cardiomediastinal silhouette and pulmonary vascularity are within normal limits. The lungs are clear without infiltrates, suspicious nodules, or pleural effusions. Chronic patchy density is present in the left lung base not significantly changed and may represent pericardial fat pad attenuation. Degenerative changes thoracic spine. IMPRESSION: No acute findings. Dictated by: Bret Cunningham MD 10/01/2021 11:22 Bret Cunningham MD in [facility] 10/01/2021 11:22
--- NOTE | 2021-10-01 09:57 | ECG_ITS ---
APPROVED REPORT Exam: Resting ECG HR:90 bpm ECG Measurements Heart Rate 90 AXES GA 156 P 69 QRSd 72 QRS 72 QT 350 T 74 QTc 428 Conclusion Normal sinus rhythm Normal ECG Electronically signed by : Jabari James MD 10/01/2021 22:37:24
[2021-10-01 09:58] LABS: Basophils # 0.1 K/mm3 (0-0.2); Basophils % 1.2 % (0.1-2.0); Eosinophils # 0.6 K/mm3 (0.0-0.4); Eosinophils % 10.2 % (0.1-12.0); Hematocrit 39.3 % (37.0-47.0); Hemoglobin 12.3 g/dL (12.2-16.2); Lymphocytes # 1.4 K/mm3 (0.7-4.5); Lymphocytes % 22.6 % (10-50); Mean Corpuscular HGB Conc 31.2 g/dL (31.8-35.4); Mean Corpuscular Hemoglobin 28.6 pg (27.0-31.2); Mean Corpuscular Volume 91.5 fl (81-99); Monocytes # 0.3 K/mm3 (0.1-1.0); Monocytes % 4.4 % (1.7-9.3); Neutrophils # 3.9 K/mm3 (1.8-7.8); Neutrophils % 61.7 % (37.0-80.0); Platelet Count 303 K/mm3 (142-424); Red Blood Count 4.29 M/mm3 (4.20-5.40); Red Cell Distribution Width 14.1 % (11.5-17.5); White Blood Count 6.3 K/mm3 (4.8-10.8)
[2021-10-01 10:05] LABS: Alanine Aminotransferase 18 U/L (12-78); Albumin Level 4.3 g/dl (3.5-5.0); Albumin/Globulin Ratio 1.5 (1.1-1.8); Alkaline Phosphatase 74 U/L (38-126); Aspartate Amino Transferase 27 U/L (14-36); Bilirubin,Total 0.5 mg/dl (0.2-1.3); Blood Urea Nitrogen 16 mg/dl (7-17); Calcium 9.3 mg/dl (8.4-10.2); Carbon Dioxide 27 mmol/L (22.0-30.0); Chloride 104 mmol/L (98-107); Creatinine Clearance Estimated 60 mL/min (50-200); Estimated Glomerular Filt Rate 54 ml/min (>60); GFR (African American) 66 ML/MIN (>60); Globulin 2.8 g/dL (1.3-3.2); Glucose 88 mg/dl (74-100); Sodium 138 mmol/L (136-145); Total Protein,Serum 7.1 g/dl (6.3-8.2)
--- NOTE | 2021-10-01 10:15 | PC.NURSE ---
Called RT to request breathing treatment
[2021-10-01 10:21] LABS: Troponin I < 0.01 ng/ml (0.00-0.034)
--- NOTE | 2021-10-01 10:59 | PC.NURSE ---
RT at BS for second neb treatment
== END 2021-10-01 12:02 | disposition home or self-care (01) ==
PROVIDERS: Emergency Provider Emergency Medicine; PCP Physician Assistant
DX: J44.1 Chronic obstructive pulmonary disease with (acute) exacerbation (principal); J20.9 Acute bronchitis, unspecified
CPT/HCPCS: 71046; 80053; 84484; 85025; 93005; 96375; 99283

== ENCOUNTER 2021-10-22 09:44 | Emergency (ER) | payer MEDICARE, OTHER, SELFPAY ==
[2021-10-22] VITALS (9 sets, daily range): BP systolic 119–151; BP diastolic 60–88; PULSE 88–99; RESP 20; TEMP 36.6; O2SAT 93–97; BMI 28.4
--- NOTE | 2021-10-22 10:12 | XR_ITS ---
PROCEDURE: XR CHEST PORTABLE CLINICAL HISTORY: cough, soa COMPARISON: CR XR CHEST 2V from 11/18/2019 CR XR CHEST 2V from 06/06/2021 CR XR CHEST 2V from 10/01/2021 FINDINGS: The cardiomediastinal silhouette and pulmonary vascularity are within normal limits. The lungs are clear without infiltrates, suspicious nodules, or pleural effusions. No acute bony abnormalities. IMPRESSION: No acute findings. Dictated by: Bret Cunningham MD 10/22/2021 10:25 Bret Cunningham MD in [facility] 10/22/2021 10:25
--- NOTE | 2021-10-22 10:22 | PC.NURSE ---
Rad at bedside
[2021-10-22 10:26] LABS: Coronavirus 19, PCR Not Detected (NotDetected); Influenza A, PCR Not Detected (NotDetected); Influenza B, PCR Not Detected (NotDetected)
[2021-10-22 10:34] LABS: Basophils # 0.1 K/mm3 (0-0.2); Basophils % 1.2 % (0.1-2.0); Eosinophils # 0.7 K/mm3 (0.0-0.4); Eosinophils % 10.4 % (0.1-12.0); Hematocrit 38.4 % (37.0-47.0); Hemoglobin 12.4 g/dL (12.2-16.2); Lymphocytes # 1.3 K/mm3 (0.7-4.5); Lymphocytes % 18.2 % (10-50); Mean Corpuscular HGB Conc 32.1 g/dL (31.8-35.4); Mean Corpuscular Hemoglobin 28.8 pg (27.0-31.2); Mean Corpuscular Volume 89.5 fl (81-99); Mean Platelet Volume 8.3 fl (7.4-10.4); Monocytes # 0.3 K/mm3 (0.1-1.0); Monocytes % 4.9 % (1.7-9.3); Neutrophils # 4.6 K/mm3 (1.8-7.8); Neutrophils % 65.3 % (37.0-80.0); Platelet Count 313 K/mm3 (142-424); Red Blood Count 4.29 M/mm3 (4.20-5.40); Red Cell Distribution Width 14.5 % (11.5-17.5)
[2021-10-22 10:39] LABS: Chloride 104 mmol/L (98-107); Potassium 4.2 mmoL/L (3.5-5.1); Sodium 141 mmol/L (136-145)
[2021-10-22 10:41] LABS: Alanine Aminotransferase 18 U/L (12-78); Aspartate Amino Transferase 39 U/L (14-36); Blood Urea Nitrogen 18 mg/dl (7-17); Creatinine Clearance Estimated 57 mL/min (50-200); Estimated Glomerular Filt Rate 49 ml/min (>60); GFR (African American) 59 ML/MIN (>60)
[2021-10-22 10:42] LABS: Albumin Level 4.3 g/dl (3.5-5.0); Albumin/Globulin Ratio 1.7 (1.1-1.8); Alkaline Phosphatase 79 U/L (38-126); Anion Gap 10.2 mEq/L (5-15); Bilirubin,Total 0.4 mg/dl (0.2-1.3); Calcium 9.6 mg/dl (8.4-10.2); Carbon Dioxide 31 mmol/L (22.0-30.0); Globulin 2.6 g/dL (1.3-3.2); Glucose 90 mg/dl (74-100); Total Protein,Serum 6.9 g/dl (6.3-8.2)
--- NOTE | 2021-10-22 11:06 | HMH.EDGENADL ---
ED Disposition Clinical Impression: COPD exacerbation Acute bronchitis Qualifiers: Bronchitis organism: unspecified organism Qualified Code(s): J20.9 - Acute bronchitis, unspecified Disposition: Home, Self-Care Condition on Discharge: Fair Instructions: DI for Chronic Obstructive Pulmonary Disease, DI for Acute Bronchitis Additional Instructions: Continue nebulizer treatments every 4 hours. Take prednisone as prescribed, take first dose this evening. Stop taking doxycycline and start taking Zithromax, take first dose tomorrow. Call your primary care provider on Monday for follow-up. Return to the emergency department if worsening shortness of breath. Prescriptions: predniSONE [Prednisone 20mg Tab] 20 mg PO BID #10 tab Transmission Status: Pending to [facility] Azithromycin [Zithromax 250mg tab] 250 mg PO DAILY #4 tab Transmission Status: [facility] Referrals: Angeline Torres [Primary Care Provider] - - Critical Care Critical Care Time: No Attestation: On 10/22/21, the high probability of a clinically significant, sudden or life threatening deterioration of the following system(s) required my full and direct attention, intervention and personal management. The time I documented below is in addition to time spent performing reported procedures but includes the following listed in this critical care notation. Medical Decision Making - Medical Records Medical records reviewed: Yes: I reviewed the patient's medical records. MR Comment: I saw the patient here earlier this month for the same symptoms. She was treated with Zithromax and prednisone. I discussed this with her and she does seem to think that that helped. - Tavo Inquiry Pt receiving controlled substance: No Vital Signs: 10/22/21 09:44 10/22/21 10:00 10/22/21 10:45 Temperature 97.9 F Temperature Source Oral Pulse Rate 98 H 90 Pulse Rate [Right Radial] 99 H Respiratory Rate 20 Blood Pressure 140/71 132/71 Blood Pressure [Right Arm] 151/81 H Blood Pressure Mean [Right Arm] 104 Blood Pressure Source [Right Arm] Automatic Cuff Blood Pressure Position [Right Arm] Sitting 02 Sat by Pulse Oximetry 95 95 93 L Oxygen Delivery Method Room Air 10/22/21 11:00 10/22/21 11:19 10/22/21 11:30 Temperature Temperature Source Pulse Rate 92 H 89 91 H Pulse Rate [Right Radial] Respiratory Rate Blood Pressure 135/88 128/70 Blood Pressure [Right Arm] Blood Pressure Mean [Right Arm] Blood Pressure Source [Right Arm] Blood Pressure Position [Right Arm] 02 Sat by Pulse Oximetry 94 L 93 L 93 L Oxygen Delivery Method Room Air 10/22/21 12:00 10/22/21 13:12 Temperature Temperature Source Pulse Rate 89 88 Pulse Rate [Right Radial] Respiratory Rate Blood Pressure 132/69 Blood Pressure [Right Arm] Blood Pressure Mean [Right Arm] Blood Pressure Source [Right Arm] Blood Pressure Position [Right Arm] 02 Sat by Pulse Oximetry 94 L Oxygen Delivery Method - Lab Data Lab Results 10/22/21 10:15: WBC 7.0, RBC 4.29, Hgb 12.4, Hct 38.4, MCV 89.5, MCH 28.8, MCHC 32.1, RDW 14.5, Plt Count 313, MPV 8.3, Neut % (Auto) 65.3, Lymph % (Auto) 18.2, [place] % (Auto) 4.9, Eos % (Auto) 10.4, Baso % (Auto) 1.2, Neut # (Auto) 4.6, Lymph # (Auto) 1.3, [place] # (Auto) 0.3, Eos # (Auto) 0.7 H, Baso # (Auto) 0.1 10/22/21 10:15: Sodium 141, Potassium 4.2, Chloride 104, Carbon Dioxide 31 H, Anion Gap 10.2, BUN 18 H, Creatinine 1.10 H, Estimated Creat Clear 57, Estimated GFR 49 L, Est GFR ( Amer) 59, Glucose 90, Calcium 9.6, Total Bilirubin 0.4, AST 39 H, ALT 18, Alkaline Phosphatase 79, Total Protein 6.9, Albumin 4.3, Globulin 2.6, Albumin/Globulin Ratio 1.7 10/22/21 10:15: SARS-CoV-2 (PCR) Not detected, Influenza A Untype (PCR) Not detected, Influenza Type B (PCR) Not detected Result diagrams: 10/22/21 10:15 10/22/21 10:15 Orders (Tests/Meds): ED MEDICATIONS Generic
--- NOTE | 2021-10-22 13:08 | PC.NURSE ---
pt up to restroom
== END 2021-10-22 14:08 | disposition home or self-care (01) ==
PROVIDERS: Emergency Provider Emergency Medicine; PCP Nurse Practitioner Family
DX: J44.1 Chronic obstructive pulmonary disease with (acute) exacerbation (principal); J44.0 Chronic obstructive pulmonary disease with (acute) lower respiratory infection
CPT/HCPCS: 71045; 80053; 85025; 96365; 99283; C9803; J0456; U0003; U0005

== ENCOUNTER → 2021-11-04 14:07 | Outpatient (CLI) | payer MEDICARE, OTHER, SELFPAY ==
--- NOTE | 2021-11-04 14:11 | CT_ITS ---
PROCEDURE INFORMATION: Exam: CT Chest Without Contrast; Diagnostic Exam date and time: 11/04/2021 2:11 PM Age: 75 years old Clinical indication: Condition or disease; Other: Copd TECHNIQUE: Imaging protocol: Diagnostic computed tomography of the chest without contrast. Radiation optimization: All CT scans at this facility use at least one of these dose optimization techniques: automated exposure control; mA and/or kV adjustment per patient size (includes targeted exams where dose is matched to clinical indication); or iterative reconstruction. COMPARISON: CR XR CHEST PORTABLE 10/22/2021 10:25 AM FINDINGS: Thyroid: Heterogeneous thyroid gland, likely small hypoattenuating nodules up to 1 cm, see left lobe series 3, image 8. No significantly enlarged or calcified nodes requiring follow-up. Lungs: Several tiny nodules scattered throughout both lungs, including 4 mm nodule in the posterior right upper lobe lateral to the hilum series 3, images 34-35 and coronal series 601 image 36, versus prominent blood vessel. 3 mm nodule versus distended terminal blood vessel in the posterolateral right lower lobe series 3, image 36, not well seen on the reconstruction images due to slice acquisition. 4 mm right posterolateral basilar nodule series 3, image 59, coronal images 51-52 and sagittal image 21. Ovoid 5 mm right basilar nodule series 3, image 62 and coronal series 601, image 49. Lateral right middle lobe 3 mm nodular densities series 3, image 49 and series 601, image 26. In the left lung, a 4 mm posterolateral lower lobe nodule series 3, image 53, another tiny lateral left lower lobe nodule of 3 mm series 3, image 50, 2 possible tiny nodules of 4 mm series 3, image 45, a 3 mm nodule image 42, question 3 mm nodule lateral left lower lobe series 3, image 33, medial left upper lobe 3 mm nodule series 3, image 14. No large mass. No focal consolidation. Mild interstitial scarring in the lungs. Mild pulmonary hyperinflation, slightly flattened diaphragms seen on the lateral [facility] director topogram. Pleural spaces: Unremarkable. No significant pleural effusion. No pneumothorax. Heart: The heart is not enlarged. No significant pericardial effusion. Aorta: There is no aortic aneurysm.. A few calcified atherosclerotic plaques in the chest. Lymph nodes: Some calcified subcarinal lymph nodes and punctate calcified left hilar nodes.No significantly enlarged lymph nodes by short axis criteria. Bones/joints: Osteopenia.There are spinal degenerative changes, with multilevel disc narrrowing and spondylosis. There are prominent posterior disc-osteophyte complexes indenting the thecal sac at multiple levels, and narrowing the central spinal canal. This is most prominent at T3-T4, and T9-T10 through T12-L1, and there are some smaller soft disc bulges or protrusions also noted.There is no evidence of acute fracture. Soft tissues: There are no soft tissue masses or fluid collections. IMPRESSION: 1. Multiple tiny bilateral solid pulmonary nodules of 3-5 mm, as detailed above. If there is no known malignancy, for patients at low risk (minimal or absent history of smoking and of other known risk factors), no routine follow-up is indicated. For patients at high risk (history of smoking or of other known risk factors), consider optional CT Chest at 12 months. (Reference: Melissa) 2. Mild pulmonary hyperinflation and slight interstitial scarring consistent with history of COPD. No focal consolidation. 3. Prominent spinal degenerative changes, disc disease and spondylosis. 4. Additional nonemergency and chronic findings as above, including small thyroid nodules requiring no
== END ==
PROVIDERS: PCP Nurse Practitioner Family; Visit Provider Nurse Practitioner Family
DX: J44.9 Chronic obstructive pulmonary disease, unspecified (principal)
CPT/HCPCS: 71250

== ENCOUNTER 2022-01-08 10:19 | Observation (INO) | payer MEDICARE, OTHER, SELFPAY ==
[2022-01-08] VITALS (16 sets, daily range): BP systolic 102–137; BP diastolic 43–74; PULSE 84–125; RESP 16–26; TEMP 36.7–39.6; O2SAT 92–98; BMI 27.4; BMI 27.7
--- NOTE | 2022-01-08 10:31 | PC.NURSE ---
COVID swab collected by nurse and sent to lab
--- NOTE | 2022-01-08 10:34 | XR_ITS ---
PROCEDURE INFORMATION: Exam: XR Chest Exam date and time: 01/08/2022 10:34 AM Age: 76 years old Clinical indication: Cough and shortness of breath; Additional info: Cough, congestion TECHNIQUE: Imaging protocol: XR of the chest. Views: 2 views. COMPARISON: CT CHEST WO CON 11/04/2021 2:14 PM FINDINGS: Lungs: Opacities in both bases may represent atelectasis or pneumonia.. Pleural spaces: Unremarkable. No pleural effusion. No pneumothorax. Heart/Mediastinum: Unremarkable. No cardiomegaly. Bones/joints: Unremarkable. IMPRESSION: Opacities in both bases may represent atelectasis or pneumonia..
--- NOTE | 2022-01-08 10:37 | HMH.EDGENADL ---
ED Disposition Clinical Impression: Community acquired pneumonia Qualifiers: Laterality: unspecified laterality Qualified Code(s): J18.9 - Pneumonia, unspecified organism Disposition: Admitted as Observation Condition on Discharge: [facility] - Critical Care Critical Care Time: No Attestation: On , the high probability of a clinically significant, sudden or life threatening deterioration of the following system(s) required my full and direct attention, intervention and personal management. The time I documented below is in addition to time spent performing reported procedures but includes the following listed in this critical care notation. Medical Decision Making - Tavo Inquiry Pt receiving controlled substance: No Vital Signs: 01/08/22 10:20 01/08/22 10:25 01/08/22 10:31 Temperature 100.4 F H Temperature Source Oral Pulse Rate 121 H 117 H Pulse Rate [Radial] 113 H Respiratory Rate 26 H Blood Pressure 137/44 L 112/57 L Blood Pressure [Right Arm] 137/44 L Blood Pressure Mean [Right Arm] 75 Blood Pressure Position [Right Arm] Sitting 02 Sat by Pulse Oximetry 98 97 97 Oxygen Delivery Method Room Air Room Air Room Air 01/08/22 11:00 01/08/22 11:30 01/08/22 12:01 Temperature 103.2 F H Temperature Source Oral Pulse Rate 106 H 117 H 125 H Pulse Rate [Radial] Respiratory Rate Blood Pressure 102/48 L 116/61 125/44 L Blood Pressure [Right Arm] Blood Pressure Mean [Right Arm] Blood Pressure Position [Right Arm] 02 Sat by Pulse Oximetry 96 95 95 Oxygen Delivery Method Room Air Room Air 01/08/22 12:30 01/08/22 13:00 01/08/22 13:15 Temperature 100.2 F H Temperature Source Oral Pulse Rate 105 H 101 H Pulse Rate [Radial] Respiratory Rate Blood Pressure 130/43 L 122/47 L Blood Pressure [Right Arm] Blood Pressure Mean [Right Arm] Blood Pressure Position [Right Arm] 02 Sat by Pulse Oximetry 93 L 92 L Oxygen Delivery Method - Lab Data Lab Results 01/08/22 10:30: SARS-CoV-2 (PCR) Not detected, Influenza A Untype (PCR) Not detected, Influenza Type B (PCR) Not detected 01/08/22 10:48: WBC 30.6 H*, RBC 4.30, Hgb 12.3, Hct 39.1, MCV 91.0, MCH 28.7, MCHC 31.5 L, RDW 14.5, Plt Count 289, MPV 8.9, Neut % (Auto) 91.2 H, Lymph % (Auto) 3.3 L, [place] % (Auto) 4.5, Eos % (Auto) 0.7, Baso % (Auto) 0.4, Neut # (Auto) 27.9 H, Lymph # (Auto) 1.0, [place] # (Auto) 1.4 H, Eos # (Auto) 0.2, Baso # (Auto) 0.1, Total Counted 100, Neutrophils % (Manual) 96 H, Lymphocytes % (Manual) 1 L, Monocytes % (Manual) 3, Platelet Estimate Normal 01/08/22 10:48: Sodium 131 L, Potassium 4.4, Chloride 101, Carbon Dioxide 25, Anion Gap 9.4, BUN 21 H, Creatinine 1.30 H, Estimated Creat Clear 46, Estimated GFR 40 L, Est GFR ( Amer) 48 L, Glucose 121 H, Calcium 8.3 L, Total Bilirubin 1.1, AST 36, ALT 21, Alkaline Phosphatase 60, Troponin I 0.03, Total Protein 6.5, Albumin 4.1, Globulin 2.4, Albumin/Globulin Ratio 1.7 01/08/22 11:37: Lactate 1.7 Result diagrams: 01/08/22 10:48 01/08/22 10:48 Orders (Tests/Meds): ED MEDICATIONS Generic Name Dose Route Start Last Admin Trade Name Freq PRN Reason Stop Dose Admin Acetaminophen 650 mg 01/08/22 13:03 Acetaminophen 325mg Tab PO 02/07/22 13:02 Q4HP PRN Fever or Mild Pain Albuterol/Ipratropium 3 ml 01/08/22 14:00 Ipratropium/Albuterol 3 Ml Neb IH 02/07/22 13:59 QIDRT JEANA Azithromycin 500 mg/ Sodium 250 mls @ 250 mls/hr 01/09/22 13:00 Chloride IV 01/22/22 12:59 Q24H JEANA Ceftriaxone Sodium 1 gm/ 50 mls @ 100 mls/hr 01/09/22 11:45 Sodium Chloride IV 01/22/22 11:44 Q24H JEANA Sodium Chloride 1,000 mls @ 50 mls/hr 01/08/22 13:03 Sod Chlor 0.9% 1000ml Bag IV 02/07/22 13:02 .Q20H JEANA Methylprednisolone Sodium Succinate 80 mg 01/08/22 19:00 Methylprednisolone Sod Succ 125mg Vial IV 02/07/22 18:59 Q8H JEANA Ondansetron HCl 4 mg 01/08/22 13:03 Ondansetron 4mg/2ml Vial
--- NOTE | 2022-01-08 10:51 | ECG_ITS ---
APPROVED REPORT Exam: Resting ECG HR:110 bpm ECG Measurements Heart Rate 110 AXES OH 153 P 60 QRSd 78 QRS 58 QT 286 T 56 QTc 351 Conclusion SINUS TACHYCARDIA ABNORMAL RHYTHM ECG UNCONFIRMED REPORT Electronically signed by : Jabari James MD 01/09/2022 14:34:43
--- NOTE | 2022-01-08 11:07 | PC.NURSE ---
pt to radiology
--- NOTE | 2022-01-08 11:16 | PC.NURSE ---
pt back from radiology and hooked back up to vital signs
[2022-01-08 11:17] LABS: Basophils # 0.1 K/mm3 (0-0.2); Basophils % 0.4 % (0.1-2.0); Eosinophils # 0.2 K/mm3 (0.0-0.4); Eosinophils % 0.7 % (0.1-12.0); Hematocrit 39.1 % (37.0-47.0); Hemoglobin 12.3 g/dL (12.2-16.2); Lymphocytes % 3.3 % (10-50); Mean Corpuscular HGB Conc 31.5 g/dL (31.8-35.4); Mean Corpuscular Hemoglobin 28.7 pg (27.0-31.2); Mean Platelet Volume 8.9 fl (7.4-10.4); Monocytes # 1.4 K/mm3 (0.1-1.0); Monocytes % 4.5 % (1.7-9.3); Neutrophils # 27.9 K/mm3 (1.8-7.8); Neutrophils % 91.2 % (37.0-80.0); Platelet Count 289 K/mm3 (142-424); Red Cell Distribution Width 14.5 % (11.5-17.5); White Blood Count 30.6 K/mm3 (4.8-10.8)
[2022-01-08 11:19] LABS: Chloride 101 mmol/L (98-107); Potassium 4.4 mmoL/L (3.5-5.1); Sodium 131 mmol/L (136-145)
[2022-01-08 11:22] LABS: Alanine Aminotransferase 21 U/L (12-78); Albumin Level 4.1 g/dl (3.5-5.0); Albumin/Globulin Ratio 1.7 (1.1-1.8); Alkaline Phosphatase 60 U/L (38-126); Anion Gap 9.4 mEq/L (5-15); Aspartate Amino Transferase 36 U/L (14-36); Bilirubin,Total 1.1 mg/dl (0.2-1.3); Blood Urea Nitrogen 21 mg/dl (7-17); Calcium 8.3 mg/dl (8.4-10.2); Carbon Dioxide 25 mmol/L (22.0-30.0); Creatinine Clearance Estimated 46 mL/min (50-200); Estimated Glomerular Filt Rate 40 ml/min (>60); GFR (African American) 48 ML/MIN (>60); Globulin 2.4 g/dL (1.3-3.2); Glucose 121 mg/dl (74-100); Total Protein,Serum 6.5 g/dl (6.3-8.2)
[2022-01-08 11:23] LABS: MANUAL DIFFERENTIAL MANUAL DIFFERENTIAL (MANUAL DIFF)
--- NOTE | 2022-01-08 11:31 | XR_ITS ---
PROCEDURE INFORMATION: Exam: XR Left Knee Exam date and time: 01/08/2022 11:31 AM Age: 76 years old Clinical indication: Injury or trauma; Fall; Blunt trauma; Knee; Left; Injury date: 01/08/22; Additional info: Fall, injury TECHNIQUE: Imaging protocol: XR Left knee. Views: 3 views. COMPARISON: CT ANGIO LE BI 09/07/2021 1:36 PM FINDINGS: Bones/joints: Mild Tricompartmental joint space narrowing and osteophyte formation consistent with degenerative changes. There is no evidence of acute fracture.There is no evidence of malalignment or dislocation. Soft tissues: Normal. IMPRESSION: 1. Mild Tricompartmental joint space narrowing and osteophyte formation consistent with degenerative changes. 2. There is no evidence of acute fracture.There is no evidence of malalignment or dislocation.
[2022-01-08 11:35] LABS: Troponin I 0.03 ng/ml (0.00-0.034)
[2022-01-08 11:49] LABS: Lymphocytes % 1 % (10-50); Monocytes % 3 % (2-9); Neutrophils % 96 % (42-76); Platelet Estimate Normal; Total Cells Counted 100
[2022-01-08 11:52] LABS: Lactic Acid 1.7 mmol/L (0.7-2.1)
[2022-01-08 11:57] LABS: Coronavirus 19, PCR Not Detected (NotDetected); Influenza A, PCR Not Detected (NotDetected); Influenza B, PCR Not Detected (NotDetected)
--- NOTE | 2022-01-08 12:01 | PC.NURSE ---
call was placed to chlorine plant operator about getting in touch with who is lease administration analyst for Dr. Mendieta. Dr. Strickland is the MD lease administration analyst. Awaiting call back from him.
--- NOTE | 2022-01-08 12:05 | PC.NURSE ---
Dr. Strickland called back at this time; speaking with Dr. Sena
--- NOTE | 2022-01-08 12:06 | PC.NURSE ---
Spoke with Surgical Tech about admission. Will let us know bed placement.
--- NOTE | 2022-01-08 13:00 | PC.NURSE ---
REPORT CALLED TO FLOOR
--- NOTE | 2022-01-08 13:11 | PC.NURSE ---
pt back from radiology
--- NOTE | 2022-01-08 13:28 | PC.NURSE ---
SRNA from [facility] came down to take the patient upstairs to her inpatient room.
--- NOTE | 2022-01-08 13:32 | PC.NURSE ---
Pt arrived to the floor at this time
--- NOTE | 2022-01-08 14:15 | PC.NURSE ---
pt has been admitted to the unit. She gets SOA with exertion but maintains saturation. SBA up to bathroom. Her skin was c/d/i. She denies any pain @ this time but reports having a fall @ home this morning. Her son lives with her. She states she has been out of her blood thinner for at least 2-3 weeks because insurance will not pay for it. Lungs diminished. edema to ble. LLE slightly worse. she reports a history of DVT in that left leg. pulses are good to BLE as well as color.
[2022-01-08 15:06] LABS: Troponin I 0.03 ng/ml (0.00-0.034)
--- NOTE | 2022-01-08 17:20 | PC.NURSE ---
ambulated pt to Bathroom. RA saturation maintained @ 95-96%
[2022-01-08 17:43] LABS: Troponin I 0.02 ng/ml (0.00-0.034)
--- NOTE | 2022-01-08 18:44 | PC.NURSE ---
pt sats remain stable on RA. 95% @ this time. c./o mild SOA with exertion.
[2022-01-09] VITALS (9 sets, daily range): BP systolic 112–129; BP diastolic 51–58; PULSE 77–120; RESP 16–20; TEMP 36.5–36.8; O2SAT 94–98; BMI 28.5
[2022-01-09 05:54] LABS: Basophils % 0.1 % (0.1-2.0); Eosinophils % 0.1 % (0.1-12.0); Hematocrit 34.5 % (37.0-47.0); Lymphocytes % 3.9 % (10-50); Mean Corpuscular HGB Conc 31.6 g/dL (31.8-35.4); Mean Corpuscular Hemoglobin 28.9 pg (27.0-31.2); Mean Corpuscular Volume 91.6 fl (81-99); Mean Platelet Volume 9.2 fl (7.4-10.4); Monocytes # 0.3 K/mm3 (0.1-1.0); Monocytes % 1.1 % (1.7-9.3); Neutrophils # 24.2 K/mm3 (1.8-7.8); Neutrophils % 94.8 % (37.0-80.0); Platelet Count 255 K/mm3 (142-424); Red Blood Count 3.76 M/mm3 (4.20-5.40); Red Cell Distribution Width 14.7 % (11.5-17.5); White Blood Count 25.5 K/mm3 (4.8-10.8)
[2022-01-09 05:57] LABS: Hemoglobin 10.9 g/dL (12.2-16.2)
[2022-01-09 05:58] LABS: MANUAL DIFFERENTIAL MANUAL DIFFERENTIAL (MANUAL DIFF)
[2022-01-09 06:31] LABS: Hypochromasia 1+; Lymphocytes % 1 % (10-50); Neutrophils % 88 % (42-76); Platelet Estimate Normal; Total Cells Counted 100
--- NOTE | 2022-01-09 09:38 | P.CONPHA_ITS ---
[facility] Pharmacy VTE Monitoring - Patient Demographics Admission date: 01/09/22 Report Date: 01/09/22 Time: 09:38 Allergies/Adverse Reactions: Patient Allergies amoxicillin [From Augmentin] Allergy (Mild, Verified 12/08/21 10:25) Vomiting clavulanic acid [From Augmentin] Allergy (Mild, Verified 12/08/21 10:25) Vomiting Height: 1.68 m Weight: 80.558 kg Patient Problems: Current Active Problems Community acquired pneumonia (Acute) - VTE Risk Labs: VTE Related Lab Results Hgb 10.9 g/dL (12.2-16.2) L D 01/09/22 05:03 Hct 34.5 % (37.0-47.0) L 01/09/22 05:03 Plt Count 255 K/mm3 (142-424) 01/09/22 05:03 BUN 21 mg/dl (7-17) H 01/08/22 10:48 Creatinine 1.30 mg/dl (0.52-1.04) H 01/08/22 10:48 Estimated Creat Clear 46 mL/min (50-200) 01/08/22 10:48 Was VTE Risk Assessment Performed: Yes VTE Score: 6 VTE Risk Level: Moderate Risk - Prophylaxis Types of VTE Prophylaxis: Pharmacological Pharmacologic Type: Other (ELIQUIS REORDERED)
--- NOTE | 2022-01-09 11:47 | PC.NURSE ---
notified MD of tachycardia and hypertension.
--- NOTE | 2022-01-09 13:36 | HMH.HP ---
*Admission Date: 01/09/22 *Chief complaint: pneumonia *History of present illness: Patient is a 76-year-old white female, usually follows Isabela Parr in the office, presented to the emergency room with pneumonia and pain in her left knee. She had simply suffered a slip and fall. Work-up in the ER included imaging of her chest which showed bilateral opacities in the lungs consistent with pneumonia. She has an underlying history of COPD. Knee was also x-rayed, there was no acute fracture or dislocation but marked erosive changes are noted. Her EKG in the ER revealed sinus tachycardia without ischemic changes. She was noted to have an elevated white count. She is admitted for further evaluation and treatment [facility] History Medical History: Reports:: Chronic Obstructive Pulmonary Disease (COPD), Deep Vein Thrombosis Denies:: Cancer, Diabetes Mellitus Type 1, Diabetes Mellitus Type 2, MRSA *Have you ever received a pneumonia vaccine?: Yes *Have you received a flu vaccine this season?: Yes Other Surgeries: Yes: Tubal Ligation, Other Amputation: No Fractures: No - *Social History Last grade of school completed: 7th or 8th Smoking Status: Never smoker Alcohol Intake: never Alcohol Intake Frequency:: other Substance Use Type: denies use *Occupational Status:: retired Housing: house Household Members: children *Travel in the last 8 weeks: None Family Hx:: No significant family history Review of Systems - Constitutional Reports lack of energy - Eyes Denies change in vision - ENT Denies abnormal hearing - *Cardiovascular Reports shortness of breath with activity - *Respiratory Reports chest congestion, Reports cough, Reports shortness of breath - *Gastrointestinal Denies abdominal pain - *Genitourinary Denies painful urination - *Musculoskeletal Reports abnormal walking, Reports joint pain, Reports muscle weakness - Integumentary/Breasts Denies yellowing of the skin - *Neurologic Reports abnormal walking - Psychiatric Denies behavioral changes - Endocrine Denies cold intolerance - Hematologic/Lymphatic Denies easy bleeding - Allergic/Immunologic Denies hives Meds Home Medications Medication Instructions Recorded Confirmed Type Aspirin [Aspirin 81mg chewable 81 mg PO DAILY 02/28/18 01/08/22 History tab] Albuterol Sulfate [Ventolin HFA] 2 puff INHALATION Q4HP PRN 01/08/22 01/09/22 History Apixaban [Eliquis] 5 mg PO BID 01/08/22 01/08/22 History Ipratropium/Albuterol Sulfate 3 ml INHALATION QIDP PRN 01/08/22 01/08/22 History [Duoneb 3mL neb] Umeclidinium Brm/Vilanterol Tr 1 puff INHALATION DAILY 01/08/22 01/08/22 History [Anoro Ellipta] Allergies Allergy/AdvReac Type Severity Reaction Status Date / Time amoxicillin [From Augmentin] Allergy Mild Vomiting Verified 12/08/21 10:25 clavulanic acid Allergy Mild Vomiting Verified 12/08/21 10:25 [From Augmentin] Exam Vital signs and Labs for Last 24 Hours: Temp Pulse Resp BP Pulse Ox 98.1 F 109 H 16 129/57 L 94 L 01/09/22 11:31 01/09/22 11:31 01/09/22 11:31 01/09/22 11:31 01/09/22 11:31 Laboratory Results - last 24 hr 01/08/22 14:35: Troponin I 0.03 01/08/22 17:15: Troponin I 0.02 01/09/22 05:03: WBC 25.5 H*, RBC 3.76 L, Hgb 10.9 L D, Hct 34.5 L, MCV 91.6, MCH 28.9, MCHC 31.6 L, RDW 14.7, Plt Count 255, MPV 9.2, Neut % (Auto) 94.8 H, Lymph % (Auto) 3.9 L, Park % (Auto) 1.1 L, Eos % (Auto) 0.1, Baso % (Auto) 0.1, Neut # (Auto) 24.2 H, Lymph # (Auto) 1.0, Park # (Auto) 0.3, Eos # (Auto) 0.0, Baso # (Auto) 0.0, Total Counted 100, Neutrophils % (Manual) 88 H, Band Neutrophils % 11.0 H, Lymphocytes % (Manual) 1 L, Platelet Estimate Normal, Hypochromasia 1+ I & O for Last 24 hours: Intake & Output 01/06/22 01/07/22 01/08/22 01/09/22 23:59 23:59 23:59 23:59 Intake Total 720 / 720 720 / 720 Balance 720 / 720 720 / 720 Weight 172 lb 177 lb 9.6 oz Microbiology Reports for the Last 24 Hours:
--- NOTE | 2022-01-09 16:36 | PC.NURSE ---
contacted MD regarding pt HR despite medication administration. New orders received
--- NOTE | 2022-01-09 17:01 | ECG_ITS ---
APPROVED REPORT Exam: Resting ECG HR:126 bpm ECG Measurements Heart Rate 126 AXES [place] 153 P 72 QRSd 92 QRS 42 QT 277 T 56 QTc 352 Conclusion SINUS TACHYCARDIA WITH OCCASIONAL VENTRICULAR PREMATURE COMPLEXES WITH FREQUENT SUPRAVENTRICULAR PREMATURE COMPLEXES POSSIBLE RIGHT VENTRICULAR CONDUCTION DELAY [RSR (QR) IN V1/V2] ABNORMAL RHYTHM ECG UNCONFIRMED REPORT Electronically signed by : Jabari James MD 01/12/2022 21:10:08
--- NOTE | 2022-01-09 17:28 | PC.NURSE ---
notified of EKG. nno
[2022-01-10] VITALS (8 sets, daily range): BP systolic 110–151; BP diastolic 49–61; PULSE 80–110; RESP 16–22; TEMP 36.6–36.9; O2SAT 93–97; BMI 29.0
--- NOTE | 2022-01-10 06:00 | XR_ITS ---
PROCEDURE INFORMATION: Exam: XR Chest Exam date and time: 01/10/2022 6:00 AM Age: 76 years old Clinical indication: Shortness of breath and other: Pneumonia; Additional info: Pna TECHNIQUE: Imaging protocol: XR of the chest. Views: 1 view. COMPARISON: CR XR CHEST 2V 01/08/2022 11:03 AM FINDINGS: Lungs: Some chronic increased interstitial changes are noted bilaterally. The lung bases appear clear. Pleural spaces: Unremarkable. No pleural effusion. No pneumothorax. Heart/Mediastinum: Unremarkable. No cardiomegaly. Bones/joints: Unremarkable. IMPRESSION: Resolution of previously noted lung base changes.
--- NOTE | 2022-01-10 06:30 | CA_ITS ---
APPROVED REPORT EXAM: Comprehensive 2D, Doppler, and color-flow Echocardiogram [employer] W[employer]pping Machine Operator: Allison Orellana RT(R) Ht: 5 ft 6 in Wt: 180lbs BSA: 1.91 BP: 131/61 mmHg Indications: Pneumonia, SVT, Murmur, COPD,dm,htn,smoker 2D Dimensions Aortic Root 2.03 cm M-Mode Dimensions RVDd 2.28 cm (0.9-2.6) LA Diam 2.80 cm (1.9-4.0) LVDd 4.66 cm (3.5-5.7) Ao Diam 3.16 cm (2.0-3.7) LVDs 3.10 cm (3.5-5.7) IVSd 0.78 cm (0.6-1.1) PWd 0.96 cm (0.6-1.1) EF (Teich) 62.20% FS 33.50% EDV (Teich) 100.30 mL ESV (Teich) 37.90 mL LV Diastology E Decel Time 150.00 (160-240 msec) E/A Ratio 0.77 MED E' 10.60 (< 7 cm/sec) E'/MED E' Ratio 8.67 (>14) Aortic Valve AoV Peak Ritchie. 221.00 (50-130 cm/s) AO Peak GR. 19.60 mmHg AO Mean GR. 9.50 (<5 mmHg) AO VTI 34.26 (18-25 cm) Mitral Valve MV E Max Ritchie. 92.00 (40-130 cm/s) MV A Velocity 120.00 (40-130 cm/s) E/A Ratio 0.77 MV Decel. Time 150.00 (160-240 ms) MV Mean Gr. 3.90 (<2mmHg) MV PHT 44.00 ms Left Ventricle Mildly enlarged left atrium, normal left ventricular size, hyperdynamic left ventricular systolic function, visually estimated ejection fraction over 65% with no obvious regional wall motion abnormality, Doppler evidence of impaired LV relaxation and high cardiac output state seen. Right Ventricle Right atrium and right ventricle are normal size and contractility. Aortic Valve Aortic valve is minimally thickened and fibrosed, there is increased velocity across the aortic valve which is likely secondary to high cardiac output state, there is no morphological aortic stenosis or aortic insufficiency. Mitral Valve Mitral valve grossly normal, there is trace mitral regurgitation. Tricuspid Valve Tricuspid valve grossly normal, there is trace tricuspid regurgitation, tricuspid regurgitation jet velocity is inadequate for calculation of the right ventricular systolic pressure. Pulmonic Valve Pulmonic valve is poorly visualized. Great Vessels Aortic root is normal size. Inferior vena cava is poorly visualized. Pericardium No significant pericardial effusion noted. Conclusion 1. Normal left ventricular size, mild concentric left ventricular hypertrophy, hyperdynamic left ventricular systolic function, visually estimated ejection fraction was 65% with no regional wall motion abnormality, Doppler evidence of impaired LV relaxation as well as high cardiac output state seen. 2. Trace mitral and tricuspid regurgitation. 3. No significant pericardial effusion noted. 4. Inferior vena cava is poorly visualized. Electronically signed by : Ulysses Martinez MD 01/10/2022 17:04:51
[2022-01-10 06:42] LABS: Hemoglobin 11.2 g/dL (12.2-16.2); Lymphocytes # 0.7 K/mm3 (0.7-4.5); Lymphocytes % 2.8 % (10-50); Mean Corpuscular Hemoglobin 29.4 pg (27.0-31.2); Mean Corpuscular Volume 92.1 fl (81-99); Mean Platelet Volume 8.5 fl (7.4-10.4); Monocytes # 0.3 K/mm3 (0.1-1.0); Monocytes % 1.3 % (1.7-9.3); Neutrophils # 22.7 K/mm3 (1.8-7.8); Neutrophils % 95.9 % (37.0-80.0); Platelet Count 297 K/mm3 (142-424); Red Blood Count 3.81 M/mm3 (4.20-5.40); Red Cell Distribution Width 14.5 % (11.5-17.5); White Blood Count 23.7 K/mm3 (4.8-10.8)
[2022-01-10 06:45] LABS: MANUAL DIFFERENTIAL MANUAL DIFFERENTIAL (MANUAL DIFF)
[2022-01-10 07:01] LABS: Chloride 108 mmol/L (98-107); Potassium 4.1 mmoL/L (3.5-5.1); Sodium 136 mmol/L (136-145)
[2022-01-10 07:03] LABS: Alanine Aminotransferase 31 U/L (12-78); Aspartate Amino Transferase 35 U/L (14-36); Blood Urea Nitrogen 21 mg/dl (7-17); Creatinine Clearance Estimated 63 mL/min (50-200); Estimated Glomerular Filt Rate 54 ml/min (>60); GFR (African American) 65 ML/MIN (>60)
[2022-01-10 07:04] LABS: Albumin Level 3.6 g/dl (3.5-5.0); Albumin/Globulin Ratio 1.4 (1.1-1.8); Alkaline Phosphatase 58 U/L (38-126); Anion Gap 8.1 mEq/L (5-15); Bilirubin,Total 0.4 mg/dl (0.2-1.3); Calcium 8.2 mg/dl (8.4-10.2); Carbon Dioxide 24 mmol/L (22.0-30.0); Globulin 2.5 g/dL (1.3-3.2); Glucose 157 mg/dl (74-100); Total Protein,Serum 6.1 g/dl (6.3-8.2)
[2022-01-10 07:48] LABS: Lymphocytes % 3 % (10-50); Monocytes % 2 % (2-9); Neutrophils % 95 % (42-76); Platelet Estimate Normal; RBC Morphology Normal; Total Cells Counted 100
--- NOTE | 2022-01-10 09:12 | CT_ITS ---
FINAL REPORT TECHNIQUE: Then section axial CT images of the chest were obtained with contrast. Three-D reformatted images were also obtained.This study was performed with techniques to keep radiation doses as low as reasonably achievable (ALARA). Individualized dose reduction techniques using automated exposure control or adjustment of mA and/or kV according to the patient''s size were employed. CLINICAL HISTORY: r/o pe, soa, on anticoag and has been out COMPARISON: November 04, 2021 FINDINGS: Motion on many of the images decreases sensitivity. There is no large or central pulmonary embolism. The lower lobe branches are not well visualized. There is no evidence of thoracic aortic aneurysm or dissection. There is no evidence of mediastinal or hilar mass or adenopathy. There is right middle lobe and lingular opacity favoring atelectasis. Multiple less than 1 cm nonspecific nodules in the lung bases are stable. There is a small right pleural effusion. Limited images of the upper abdomen are unremarkable. IMPRESSION: No pulmonary embolism. Right middle lobe and lingular atelectasis. Stable nonspecific nodules in the lung bases. Consider additional follow-up in 6 months. Reviewed, Interpreted and Dictated by Nabeel Cardenas III, MD Transcribed by Rohit Guerrero Authenticated by Nabeel Cardenas III, MD on 01/10/2022 11:07:49 AM [facility]
--- NOTE | 2022-01-10 09:14 | HMH.ACPN2 ---
Internal Medicine - PN: Subj *Date: 01/10/22 *Time: 08:20 Interval history: pt up walking in room states doing well, states she has been out of [facility] since first dec due to her insurance not covering them. Exam Vital signs and Labs for Last 24 Hours: Temp Pulse Resp BP Pulse Ox 98.1 F 80 22 131/61 95 01/10/22 04:00 01/10/22 06:25 01/10/22 04:00 01/10/22 04:00 01/10/22 04:00 Laboratory Results - last 24 hr 01/10/22 05:33: WBC 23.7 H*, RBC 3.81 L, Hgb 11.2 L, Hct 35.0 L, MCV 92.1, MCH 29.4, MCHC 32.0, RDW 14.5, Plt Count 297, MPV 8.5, Neut % (Auto) 95.9 H, Lymph % (Auto) 2.8 L, Gilliam % (Auto) 1.3 L, Eos % (Auto) 0.0 L, Baso % (Auto) 0.0 L, Neut # (Auto) 22.7 H, Lymph # (Auto) 0.7, Gilliam # (Auto) 0.3, Eos # (Auto) 0.0, Baso # (Auto) 0.0, Total Counted 100, Neutrophils % (Manual) 95 H, Lymphocytes % (Manual) 3 L, Monocytes % (Manual) 2, Platelet Estimate Normal, RBC Morphology Normal 01/10/22 05:33: Sodium 136, Potassium 4.1, Chloride 108 H, Carbon Dioxide 24, Anion Gap 8.1, BUN 21 H, Creatinine 1.00 D, Estimated Creat Clear 63, Estimated GFR 54 L, Est GFR ( Amer) 65 D, Glucose 157 H, Calcium 8.2 L, Total Bilirubin 0.4, AST 35, ALT 31 D, Alkaline Phosphatase 58, Total Protein 6.1 L, Albumin 3.6, Globulin 2.5, Albumin/Globulin Ratio 1.4 I & O for Last 24 hours: Intake & Output 01/07/22 01/08/22 01/09/22 01/10/22 11:59 11:59 11:59 11:59 Intake Total 1080 / 1080 720 / 720 Balance 1080 / 1080 720 / 720 Weight 170 lb 177 lb 9.6 oz 180 lb 14.4 oz Microbiology Reports for the Last 24 Hours: Microbiology 01/08/22 11:37 Blood Blood Culture - Preliminary - Constitutional no acute distress - *Routine HEENT Exam Head: Present: normocephalic Eye: Present: PERRL ENT: Present: mucous membranes moist - *Routine Neck Exam Present: supple. Absent: lymphadenopathy - *Routine Respiratory Exam Present: decreased breath sounds, rhonchi - *Routine Cardiovascular Exam Present: RRR - *Routine Abdominal Exam Present: soft, normoactive bowel sounds. Absent: tenderness - *Routine Extremities Exam Absent: cyanosis, clubbing, edema - *Routine Skin Exam Present: warm. Absent: rash - *Routine Neurological Exam Present: alert, oriented X3 Assessment and Plan (1) Erosive osteoarthritis of multiple sites Status: Acute Category: Medical Code(s): M15.4 - Erosive (osteo)arthritis (2) Community acquired pneumonia Status: Acute Qualifiers: Laterality: unspecified laterality Qualified Code(s): J18.9 - Pneumonia, unspecified organism Category: Medical Code(s): J18.9 - Pneumonia, unspecified organism (3) COPD exacerbation Status: Acute Category: Medical Code(s): J44.1 - Chronic obstructive pulmonary disease with (acute) exacerbation (4) Dvt femoral (deep venous thrombosis) Status: Acute Qualifiers: Chronicity: acute Laterality: left Qualified Code(s): I82.412 - Acute embolism and thrombosis of left femoral vein Category: Medical Code(s): I82.419 - Acute embolism and thrombosis of unspecified femoral vein (5) Contusion of knee, left Status: Acute Category: Medical Code(s): S80.02XA - Contusion of left knee, initial encounter (6) Leukocytosis Status: Acute Category: Medical Code(s): D72.829 - Elevated white blood cell count, unspecified (7) SIRS (systemic inflammatory response syndrome) Status: Acute Category: Medical Code(s): R65.10 - Systemic inflammatory response syndrome (SIRS) of non-infectious origin without acute organ dysfunction - Assessment and plan all Dx Assessment and Plan for all problems:: rounded with dr strong all orders per dr giles pulm consult ct r/o pe check for clotting issues
--- NOTE | 2022-01-10 09:24 | PC.NURSE ---
notified dr campos of consult
--- NOTE | 2022-01-10 09:28 | HMH.PULMCON ---
*Admission Date: 01/09/22 *Reason for consult:: Pneumonia *History of present illness: Ms. Birch is 76-year-old female no significant smoking history, significant secondhand smoke exposure, carries a diagnosis of COPD presented to the hospital with worsening respiratory distress along with dizziness and episode of fall and was found to be having pneumonia on chest x-ray and pulmonary was called for further management. Apart from worsening breathing patient denies any worsening productive phlegm, denies any subjective fevers or chills. [facility] History Medical History: Reports:: Chronic Obstructive Pulmonary Disease (COPD), Deep Vein Thrombosis Denies:: Cancer, Diabetes Mellitus Type 1, Diabetes Mellitus Type 2, MRSA *Have you ever received a pneumonia vaccine?: Yes *Have you received a flu vaccine this season?: Yes Other Surgeries: Yes: Tubal Ligation, Other Amputation: No Fractures: No - *Social History Last grade of school completed: 7th or 8th Smoking Status: Never smoker Alcohol Intake: never Alcohol Intake Frequency:: other Substance Use Type: denies use *Occupational Status:: retired Housing: house Household Members: children *Travel in the last 8 weeks: None Family Hx:: No significant family history ROS - Cons Reports anorexia, Reports body ache(s), Reports fatigue, Denies chills - Eyes Denies change in vision - ENT Denies nasal discharge, Denies nasal obstruction - Card Reports lightheadedness - Resp Respiratory: Reports chest congestion, Reports cough, Reports dyspnea, Reports dyspnea on exertion, Denies excessive phlegm production, Denies cough with sputum production - GI Gastrointestingal: Denies: abdominal pain - Psych Denies thoughts of hurting/killing others, Denies thoughts of hurting/killing yourself Meds Home Medications Medication Instructions Recorded Confirmed Type Aspirin [Aspirin 81mg chewable 81 mg PO DAILY 02/28/18 01/08/22 History tab] Albuterol Sulfate [Ventolin HFA] 2 puff INHALATION Q4HP PRN 01/08/22 01/09/22 History Apixaban [Eliquis] 5 mg PO BID 01/08/22 01/08/22 History Ipratropium/Albuterol Sulfate 3 ml INHALATION QIDP PRN 01/08/22 01/08/22 History [Duoneb 3mL neb] Umeclidinium Brm/Vilanterol Tr 1 puff INHALATION DAILY 01/08/22 01/08/22 History [Anoro Ellipta] Allergies Allergy/AdvReac Type Severity Reaction Status Date / Time amoxicillin [From Augmentin] Allergy Mild Vomiting Verified 12/08/21 10:25 clavulanic acid Allergy Mild Vomiting Verified 12/08/21 10:25 [From Augmentin] Exam - Constitutional Constitutional:: Present: no acute distress, comfortable - HENMT Exam HENMT: Present: normocephalic, atraumatic - Eye Exam Eyes:: Present: normal appearance both eyes and related structures - Neck Exam Neck:: Present: normal visual inspection - Respiratory Exam Respiratory:: Present: able to speak in complete sentences, no respiratory distress. Absent: crackles, wheezing - Cardiovascular Exam Cardiac:: Present: S1, S2 - GI Exam GI:: Present: soft - Skin Exam Skin: Present: warm, no rash - Neurological Exam Neurological: Present: alert, awake, normal cognition - Extremities Exam Extremities: Present: no cyanosis, no clubbing, no edema Internal Medicine - CN: Reslt - Labs CBC & Chem 7: 01/10/22 05:33 01/10/22 05:33 Labs: Short CBC 01/10/22 Range/Units 05:33 WBC 23.7 H* (4.8-10.8) K/mm3 Hgb 11.2 L (12.2-16.2) g/dL Hct 35.0 L (37.0-47.0) % Plt Count 297 (142-424) K/mm3 BMP 01/10/22 05:33 Sodium 136 Potassium 4.1 Chloride 108 H Carbon Dioxide 24 BUN 21 H Creatinine 1.00 D Glucose 157 H Calcium 8.2 L Liver Function 01/10/22 Range/Units 05:33 Total Bilirubin 0.4 (0.2-1.3) mg/dl AST 35 (14-36) U/L ALT 31 D (12-78) U/L Alkaline Phosphatase 58 (38-126) U/L Albumin 3.6 (3.5-5.0) g/dl Assessment and Plan (1) Erosive osteoarthritis of mult
--- NOTE | 2022-01-10 10:16 | HMH.PTEV ---
Physical Therapy Evaluation Rehab PT IP Evaluation Start: 01/09/22 14:01 Freq: ONCE Status: Active Protocol: Document 01/10/22 10:13 MAURICE (Rec: 01/10/22 10:16 PHOBREONNA [id number]) Subjective/History History History 76 yowf adm to [facility] with general weakness and PNA. She reports she lives with her son , 1 step to enter the home and was independent with all mobility prior to adm. Subjective Subjective Pt with no c/o this am. Rehab PT IP Eval Objective Appearance Patient Behavior Appropriate Patient Orientation Person,Place,Time Difficulty following instructions none Speech Pattern Clear Ambulation Patient Able to Ambulate Yes Ambulation Observation IP General Gait Pattern Observation No Deviations/Normal Ambulation Distance (feet) 20 Ambulation Assistive Device None Ambulation Ability Independent Balance Ability to Arise Able, uses arms to help Sitting Balance Steady, safe Standing Balance Narrow stance w/o support Dynamic Sitting Balance Ability Good Dynamic Standing Balance Ability Good Transfers Bed Transfer Ability Independent Chair Transfer Ability Independent Sit to Stand Bed Transfer Ability Independent Sit to Stand Chair Transfer Ability Independent Rehab PT IP prob,goals,plan Problems Date of Evaluation: 01/10/22 Discharge Plan PT Discharge Plan Pt appears to be at baseline for all mobility at this time, no current inpatient therapy needs and she is appropriate to return home once medically stable. G -code Required No Eval Complexity Eval Charge Codes 26994 - Moderate Complexity PHYSICIAN CERTIFICATION: I certify the specified therapy services for Masha Birch are required, authorized, and reviewed every 30 days.
[2022-01-10 10:27] LABS: INR 1.04 (0.9-1.1); Prothrombin Time 11.7 seconds (10.1-12.5)
[2022-01-11] VITALS: BP 116/52; PULSE 70; PULSE 88; RESP 16; TEMP 36.4; O2SAT 96
[2022-01-11 04:00] VITALS: BP 133/58; PULSE 82; PULSE 90; RESP 16; TEMP 36.5; O2SAT 96
[2022-01-11 05:00] VITALS: BMI 29.5
[2022-01-11 06:12] VITALS: PULSE 82; PULSE 84
[2022-01-11 06:43] LABS: Basophils % 0.1 % (0.1-2.0); Hematocrit 35.8 % (37.0-47.0); Hemoglobin 11.4 g/dL (12.2-16.2); Lymphocytes # 0.8 K/mm3 (0.7-4.5); Lymphocytes % 4.8 % (10-50); Mean Corpuscular HGB Conc 31.8 g/dL (31.8-35.4); Mean Corpuscular Hemoglobin 29.4 pg (27.0-31.2); Mean Corpuscular Volume 92.5 fl (81-99); Mean Platelet Volume 8.4 fl (7.4-10.4); Monocytes # 0.5 K/mm3 (0.1-1.0); Neutrophils # 15.7 K/mm3 (1.8-7.8); Neutrophils % 92.1 % (37.0-80.0); Platelet Count 334 K/mm3 (142-424); Red Blood Count 3.87 M/mm3 (4.20-5.40); Red Cell Distribution Width 14.5 % (11.5-17.5); White Blood Count 17.1 K/mm3 (4.8-10.8)
[2022-01-11 06:46] LABS: MANUAL DIFFERENTIAL MANUAL DIFFERENTIAL (MANUAL DIFF)
[2022-01-11 06:55] LABS: Chloride 103 mmol/L (98-107); Potassium 3.7 mmoL/L (3.5-5.1); Sodium 134 mmol/L (136-145)
[2022-01-11 06:58] LABS: Anion Gap 10.7 mEq/L (5-15); Blood Urea Nitrogen 25 mg/dl (7-17); Calcium 8.6 mg/dl (8.4-10.2); Carbon Dioxide 24 mmol/L (22.0-30.0); Creatinine Clearance Estimated 64 mL/min (50-200); Estimated Glomerular Filt Rate 54 ml/min (>60); GFR (African American) 65 ML/MIN (>60); Glucose 191 mg/dl (74-100)
[2022-01-11 07:41] VITALS: BP 145/88; PULSE 108; RESP 16; TEMP 36.8; O2SAT 98
[2022-01-11 07:44] LABS: Lymphocytes % 6 % (10-50); Monocytes % 4 % (2-9); Neutrophils % 90 % (42-76); Platelet Estimate Normal; RBC Morphology Normal; Total Cells Counted 100
[2022-01-11 08:28] LABS: Homocyst(e)ine 19.2 umol/L (0.0-19.2)
--- NOTE | 2022-01-11 08:56 | HMH.DCSUM ---
General - General Admission date:: 01/08/22 Discharge date: 01/11/22 HPI HPI: Patient is a 76-year-old white female, usually follows Isabela Parr in the office, presented to the emergency room with pneumonia and pain in her left knee. She had simply suffered a slip and fall. Work-up in the ER included imaging of her chest which showed bilateral opacities in the lungs consistent with pneumonia. She has an underlying history of COPD. Knee was also x-rayed, there was no acute fracture or dislocation but marked erosive changes are noted. Her EKG in the ER revealed sinus tachycardia without ischemic changes. She was noted to have an elevated white count. She is admitted for further evaluation and treatment Hospital Course Hospital Course: Patient is a 76-year-old white female, usually follows Isabela Parr in the office, presented to the emergency room with pneumonia and pain in her left knee. She had simply suffered a slip and fall. Work-up in the ER included imaging of her chest which showed bilateral opacities in the lungs consistent with pneumonia. She has an underlying history of COPD. Knee was also x-rayed, there was no acute fracture or dislocation but marked erosive changes are noted. Her EKG in the ER revealed sinus tachycardia without ischemic changes. She was noted to have an elevated white count. She is admitted for further evaluation and treatment 01/08/22 CXR: FINDINGS: Lungs: Opacities in both bases may represent atelectasis or pneumonia.. Pleural spaces: Unremarkable. No pleural effusion. No pneumothorax. Heart/Mediastinum: Unremarkable. No cardiomegaly. Bones/joints: Unremarkable. IMPRESSION: Opacities in both bases may represent atelectasis or pneumonia.. Electronically signed by Leonora Lua MD 01/08/22 L Knee XR: FINDINGS: Bones/joints: Mild Tricompartmental joint space narrowing and osteophyte formation consistent with degenerative changes. There is no evidence of acute fracture.There is no evidence of malalignment or dislocation. Soft tissues: Normal. IMPRESSION: 1. Mild Tricompartmental joint space narrowing and osteophyte formation consistent with degenerative changes. 2. There is no evidence of acute fracture.There is no evidence of malalignment or dislocation. Electronically signed by Leonora Lua MD 01/10/22 ECHO: Conclusion 1. Normal left ventricular size, mild concentric left ventricular hypertrophy, hyperdynamic left ventricular systolic function, visually estimated ejection fraction was 65% with no regional wall motion abnormality, Doppler evidence of impaired LV relaxation as well as high cardiac output state seen. 2. Trace mitral and tricuspid regurgitation. 3. No significant pericardial effusion noted. 4. Inferior vena cava is poorly visualized. Electronically signed by : Ulysses Martinez MD 01/10/22 CHest CTA: FINDINGS: Motion on many of the images decreases sensitivity. There is no large or central pulmonary embolism. The lower lobe branches are not well visualized. There is no evidence of thoracic aortic aneurysm or dissection. There is no evidence of mediastinal or hilar mass or adenopathy. There is right middle lobe and lingular opacity favoring atelectasis. Multiple less than 1 cm nonspecific nodules in the lung bases are stable. There is a small right pleural effusion. Limited images of the upper abdomen are unremarkable. IMPRESSION: No pulmonary embolism. Right middle lobe and lingular atelectasis. Stable nonspecific nodules in the lung bases. Consider additional follow-up in 6 months. Reviewed, Interpreted and Dictated by Nabeel Cardenas III, MD Pulmonary has seen and recommends: -Continue ceftriaxone azithromycin x 5 days for community-acquired pneumonia. Denies any recent hospitalizations. However patient being on room air at rest with no significant consolidation did not explain her significant leukocyto
--- NOTE | 2022-01-11 09:08 | HMH.PULMPN ---
Internal Medicine - PN: Subj *Date: 01/11/22 *Time: 10:26 Interval history: No acute respiratory vents overnight. Patient continued to remain on room air with no respiratory distress. Exam - Constitutional Constitutional:: Present: no acute distress, comfortable - HENMT Exam HENMT: Present: normocephalic, atraumatic - Eye Exam Eyes:: Present: normal appearance both eyes and related structures - Neck Exam Neck:: Present: normal visual inspection - Respiratory Exam Respiratory:: Present: able to speak in complete sentences, no respiratory distress. Absent: crackles, wheezing - Cardiovascular Exam Cardiac:: Present: S1, S2 - GI Exam GI:: Present: soft - Skin Exam Skin: Present: warm - Neurological Exam Neurological: Present: alert, awake, normal cognition - Extremities Exam Extremities: Present: no cyanosis, no clubbing, no edema Assessment and Plan (1) Erosive osteoarthritis of multiple sites Status: Acute Category: Medical Code(s): M15.4 - Erosive (osteo)arthritis (2) Community acquired pneumonia Status: Acute Qualifiers: Laterality: unspecified laterality Qualified Code(s): J18.9 - Pneumonia, unspecified organism Category: Medical Code(s): J18.9 - Pneumonia, unspecified organism (3) COPD exacerbation Status: Acute Category: Medical Code(s): J44.1 - Chronic obstructive pulmonary disease with (acute) exacerbation (4) Dvt femoral (deep venous thrombosis) Status: Acute Qualifiers: Chronicity: acute Laterality: left Qualified Code(s): I82.412 - Acute embolism and thrombosis of left femoral vein Category: Medical Code(s): I82.419 - Acute embolism and thrombosis of unspecified femoral vein (5) Contusion of knee, left Status: Acute Category: Medical Code(s): S80.02XA - Contusion of left knee, initial encounter (6) Leukocytosis Status: Acute Category: Medical Code(s): D72.829 - Elevated white blood cell count, unspecified (7) SIRS (systemic inflammatory response syndrome) Status: Acute Category: Medical Code(s): R65.10 - Systemic inflammatory response syndrome (SIRS) of non-infectious origin without acute organ dysfunction - Assessment and plan all Dx Assessment and Plan for all problems:: #Community-acquired pneumonia: # Streprococcus Bactremia: Ms. Birch is 76-year-old female no significant smoking history, significant secondhand smoke exposure, carries a diagnosis of COPD presented to the hospital with worsening respiratory distress along with dizziness and episode of fall and was found to be having pneumonia on chest x-ray and pulmonary was called for further management. Apart from worsening breathing patient denies any worsening productive phlegm, denies any subjective fevers or chills. COVID-19 serology negative. Patient on room air. Presented with pain in her left knee status post fall. Chest x-ray today bilateral lower lobe infiltrates left greater than right. No Dense consolidation noted. Minimal airspace disease noted on the chest x-ray from admission predominantly on Rt side, the worsening changes today are likely from poor inspiratory effort. Significant leukocytosis with WBC of 30 on admission, improved to 23 today. CTA from this morning evidence of pulmonary embolism, minimal airspace disease in the right lower lobe. Patient was initially on ceftriaxone and azithromycin on admission. Patient blood cultures on one bottle grew Streptococcus salivarius within 24 hours. Interval update: Afebrile. Continue to remain on room air. Leukocytosis is improving now at 17. Plan: -Continue ceftriaxone azithromycin x 5 days for community-acquired pneumonia. Denies any recent hospitalizations. However patient being on room air at rest with no significant consolidation did not explain her significant leukocytosis on admission. Concerning for bacteremia even though her blood cultures from one bottle were positive. Will recommend repeating bl
--- NOTE | 2022-01-11 09:45 | PC.NURSE ---
Discharge order is inVinay stated patients needs 2 doses of antibiotics before discharged
--- NOTE | 2022-01-11 09:50 | HMH.PHAINT ---
Discharge counseling complete. Informed pt about new meds, start dates, and side effects. Pt understood and had no questions
[2022-01-11 11:03] VITALS: BP 141/61; PULSE 87; RESP 16; TEMP 36.8; O2SAT 98
[2022-01-11 11:11] VITALS: PULSE 92; PULSE 94
[2022-01-12 01:22] LABS: Anti-Thrombin III Antigen 77 % (72-124); Antithrombin Activity 131 % (75-135); Factor VIII Activity 283 % (56-140); Protein C Functional 116 % (73-180); Protein S, Free 90 % (61-136); Protein S, Total 80 % (60-150); Protein S-Functional 76 % (63-140)
[2022-01-13 02:15] LABS: Protein C Antigen 97 % (60-150)
== END 2022-01-11 13:15 | disposition home or self-care (01) ==
LOC: ER 11:35 → 2ND 12:27
PROVIDERS: Family Medicine; Nurse Practitioner Family; Admitting Provider Family Medicine; Emergency Provider Emergency Medicine; Visit Provider Emergency Medicine
DX: J18.9 Pneumonia, unspecified organism (principal); Z79.899 Other long term (current) drug therapy; Z20.822 Contact with and (suspected) exposure to COVID-19; J44.1 Chronic obstructive pulmonary disease with (acute) exacerbation; M15.4 Erosive (osteo)arthritis; I82.412 Acute embolism and thrombosis of left femoral vein; S80.02XA Contusion of left knee, initial encounter; R78.81 Bacteremia; Z77.22 Contact with and (suspected) exposure to environmental tobacco smoke (acute) (chronic); W01.0XXA Fall on same level from slipping, tripping and stumbling without subsequent striking against object, initial encounter; R79.1 Abnormal coagulation profile; Z86.718 Personal history of other venous thrombosis and embolism
CPT/HCPCS: G0378; 36415; 71045; 71046; 71275; 73562; 80048; 80053; 81241; 83090; 83605; 84484; 85007; 85025; 85240; 85300; 85301; 85302; 85305; 85306; 85610; 86148; 87040; 87077; 87186; 93005; 93306; 94640; 96365; 96367; 97162; 99284; C9803; J0456; J0696; Q9967; U0003; U0005

== ENCOUNTER → 2022-04-19 08:44 | Outpatient (CLI) | payer MEDICARE, OTHER, SELFPAY ==
--- NOTE | 2022-04-19 08:44 | XR_ITS ---
FINAL REPORT TECHNIQUE: Bone densitometry calculations of the lumbar spine and left hip were obtained. CLINICAL HISTORY: . post menopausal FINDINGS: DEXA BONE DENSITY AXIAL SKELETON Using L1-4, the bone mineral density of the spine is 0.972 g/cm2, corresponding to T-score of -0.7. Using the left hip, the bone mineral density of the femoral neck is 0.765 g/cm2, corresponding to a T-score of -1.5. NOTE: T-score: Standard deviation compared with peak bone mass of young adult mean. *Following the recommendations of the International Society of Bone densitometry, classification of hip BMD is based on the lower of two T-scores; total hip or femoral neck. IMPRESSION: Normal bone mineral density of the lumbar spine. Diminished bone mineral density of the left hip consistent with osteopenia. FRAX 10 year fracture risk is 10 % for major osteoporotic fracture. Reviewed, Interpreted and Dictated by Luz Marina De Los Santos MD Transcribed by Radha Bey Authenticated by Luz Marina De Los Santos MD on 04/19/2022 10:47:44 AM [facility]
== END ==
PROVIDERS: PCP Emergency Medicine; Visit Provider Physician Assistant
DX: Z78.0 Asymptomatic menopausal state (principal)
CPT/HCPCS: 77080

== ENCOUNTER → 2023-01-13 10:21 | Outpatient (CLI) | payer MEDICARE, OTHER, SELFPAY ==
--- NOTE | 2023-01-13 10:25 | CT_ITS ---
FINAL REPORT TECHNIQUE: Thin section axial images were obtained from the lung apices through the upper abdomen without contrast. This study was performed with techniques to keep radiation doses as low as reasonably achievable (ALARA). Individualized dose reduction techniques using automated exposure control or adjustment of mA and/or kV according to the patient's size were employed. CLINICAL HISTORY: 12 month nodule F/U COMPARISON: 01/10/[address] chest 11/04/2021 FINDINGS: There is no mediastinal, hilar, or axillary lymphadenopathy. There is no pleural or pericardial effusion. There is a left apical 4 mm nodule on image 12 which is unchanged. There is additional left apical nodule on image 14 which is stable. There are additional bilateral noncalcified pulmonary nodules which are unchanged, largest is a 6 mm nodule in the right perihilar region on image 32 which previously measured 6 mm. No new pulmonary nodules are identified. There are no consolidations. Limited, unenhanced evaluation of the upper abdomen is without acute abnormality. There is no acute osseous abnormality. IMPRESSION: Multiple stable subcentimeter pulmonary nodules which are stable back to October 2021. Recommend follow-up exam after October 2023 to prove stability for greater than two years.. Reviewed, Interpreted and Dictated by Luz Marina De Los Santos MD Transcribed by Kelly Mack Authenticated and [facility]
== END ==
PROVIDERS: PCP Physician Assistant; Visit Provider Internal Medicine Pulmonary Disease
DX: R91.8 Other nonspecific abnormal finding of lung field (principal)
CPT/HCPCS: 71250

== ENCOUNTER 2023-01-16 10:28 | Emergency (ER) | payer MEDICARE, OTHER, SELFPAY ==
[2023-01-16 10:30] VITALS: BP 141/65; PULSE 83; RESP 18; TEMP 36.6; O2SAT 97; BMI 28.2
[2023-01-16 10:35] VITALS: BP 141/65; PULSE 78; O2SAT 95
--- NOTE | 2023-01-16 10:35 | PC.NURSE ---
DR ZIMMERMAN AT BEDSIDE FOR EVALUATION
--- NOTE | 2023-01-16 10:39 | ECG_ITS ---
APPROVED REPORT Exam: Resting ECG HR:80 bpm ECG Measurements Heart Rate 80 AXES WV 169 P 53 QRSd 86 QRS 51 QT 336 T 51 QTc 372 Conclusion SINUS RHYTHM WITH OCCASIONAL SUPRAVENTRICULAR PREMATURE COMPLEXES POSSIBLE RIGHT VENTRICULAR CONDUCTION DELAY [RSR (QR) IN V1/V2] BORDERLINE ECG UNCONFIRMED REPORT Electronically signed by : Jabari James MD 01/16/2023 18:51:21
--- NOTE | 2023-01-16 10:41 | HMH.EDGENADL ---
Discharge Plan Disposition Patient Disposition: Home, Self-Care Prescriptions Prescriptions: New albuterol sulfate 90 mcg/actuation HFA aerosol inhaler 4 inh inhalation Q4H Qty: 8.5 0RF Rx Instructions: 4 puffs every 4 hours while awake for 48 hours then as needed for shortness of breath following prednisone 50 mg tablet 50 mg PO DAILY 5 Days Qty: 5 0RF Rx Instructions: Start tomorrow No Action albuterol sulfate 90 mcg/actuation HFA aerosol inhaler 2 inh INHALATION Q6H PRN (Reason: shortness of breath or wheezing) 90 Days Qty: 8.5 3RF azithromycin 250 mg tablet See Rx Instructions PO .COMPLEX Qty: 6 0RF Rx Instructions: take 500 mg today (day 1), then 250 mg for 4 days (days 2-5) prednisone 20 mg tablet 20 mg PO BID 5 Days Qty: 10 0RF nwelyqxzxfwwmvs-tuhuzbngk-DM 2-30-10 mg/5 mL syrup 2.5 ml PO Q6H Qty: 200 0RF ipratropium-albuterol 0.5 mg-3 mg(2.5 mg base)/3 mL solution for nebulization 3 ml INHALATION QIDP PRN (Reason: Shortness Of Breath Or Wheezing) Qty: 90 1RF albuterol sulfate 1.25 mg/3 mL solution for nebulization 1.25 mg inhalation QID PRN (Reason: shortness of breath or wheezing) Qty: 90 2RF dextromethorphan-guaifenesin [Mucinex DM] 60-1,200 mg tablet extended release 12 hr 1 tab PO Q12H Qty: 20 0RF methylprednisolone [Medrol (Kobi)] 4 mg tablets,dose pack 4 mg PO PER PKG DIR 6 Days Qty: 21 0RF doxycycline hyclate 100 mg tablet 100 mg PO BID Qty: 20 0RF methylprednisolone acetate 80 mg/mL suspension 80 mg IM ONCE Qty: 1 0RF calcium carbonate-vitamin D3 [Calcium 600 with Vitamin D3] 600 mg-12.5 mcg (500 unit) capsule See Rx Instructions PO .COMPLEX Qty: 90 3RF Rx Instructions: Take 1 capsule by mouth daily for Osteopenia PO; alendronate [Fosamax] 70 mg tablet 70 mg PO WEEKLY Qty: 12 2RF Xarelto 10 mg tablet 10 mg PO DAILY Qty: 30 2RF Rx Instructions: for 35 days Stiolto Respimat 2.5-2.5 mcg/actuation mist 2 puff INHALATION DAILY 90 Days Qty: 4 3RF aspirin 81 MG tablet,chewable 81 mg PO DAILY Referrals Follow up/Referrals: Isabela Parr PA [Primary Care Provider] - See instructions Activity Restrictions/Add. Instructions Additional Instructions/Restrictions: He had a mild COPD exacerbation please return to the emergency department any concerns. Otherwise follow-up with primary care doctor this week. Clinical Impressions Clinical Impression: COPD exacerbation Discharge ED Provider: Mo Neil General Adult HPI General Chief complaint: Shortness of Breath/Dyspnea Stated complaint: SOA,cough Time Seen by Provider: 01/16/23 10:42 History of Present Illness HPI narrative: Patient is a 77-year-old female who comes in today with dyspnea. She is a poor historian and history is limited. She states that she feels like this is a COPD exacerbation. She claims that she had this many times before. She states that she has not had increased wheezing but she has not had an increase in cough or increase in productive sputum. She tells me that she normally is able to take albuterol nebulized treatments at home however her pharmacy at [facility] has not had this in stock and she has not been able to take this at home anytime recently. When asked further she does have an albuterol inhaler which she has been able to take at home which has shown some improvement. Initially she told me she had no other significant medical problems however when asked about her medication she said she is on a blood thinner. When asked further she states that she is on Eliquis. The indication is for a DVT. She denies having a history of PTE. 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 She claims that her left leg is always asymmetrically swollen in comparison with her right but this is no different than it normally has been over the last year and a half. She d
--- NOTE | 2023-01-16 10:42 | XR_ITS ---
FINAL REPORT CLINICAL HISTORY: dyspnea COMPARISON: 01/10/2022 FINDINGS: TWO-VIEW CHEST The heart size is normal. The mediastinum is normal. There is left base opacity, may represent atelectasis or pneumonia. The right lung is clear. There is no pneumothorax. IMPRESSION: Left base atelectasis versus pneumonia. Reviewed, Interpreted and Dictated by Nabeel Cardenas III, MD Transcribed by Karen Flanagan Authenticated and [facility]
--- NOTE | 2023-01-16 10:51 | PC.NURSE ---
XR AT BEDSIDE
[2023-01-16 11:00] VITALS: BP 112/59; PULSE 79; O2SAT 100
--- NOTE | 2023-01-16 11:05 | PC.NURSE ---
rounded on pt, no needs at this time
[2023-01-16 11:09] LABS: Basophils # 0.1 K/mm3 (0-0.2); Basophils % 0.9 % (0.1-2.0); Eosinophils # 0.5 K/mm3 (0.0-0.4); Hematocrit 38.8 % (37.0-47.0); Hemoglobin 12.5 g/dL (12.2-16.2); Lymphocytes # 1.7 K/mm3 (0.7-4.5); Lymphocytes % 23.5 % (10-50); Mean Corpuscular HGB Conc 32.3 g/dL (31.8-35.4); Mean Corpuscular Hemoglobin 28.4 pg (27.0-31.2); Mean Platelet Volume 8.3 fl (7.4-10.4); Monocytes # 0.4 K/mm3 (0.1-1.0); Monocytes % 5.8 % (1.7-9.3); Neutrophils # 4.5 K/mm3 (1.8-7.8); Neutrophils % 62.8 % (37.0-80.0); Platelet Count 279 K/mm3 (142-424); Red Cell Distribution Width 14.5 % (11.5-17.5); White Blood Count 7.1 K/mm3 (4.8-10.8)
[2023-01-16 11:12] LABS: Alanine Aminotransferase 20 U/L (12-78); Albumin Level 4.2 g/dl (3.5-5.0); Albumin/Globulin Ratio 1.7 (1.1-1.8); Alkaline Phosphatase 65 U/L (38-126); Anion Gap 6.1 mEq/L (5-15); Aspartate Amino Transferase 25 U/L (14-36); Bilirubin,Total 0.7 mg/dl (0.2-1.3); Blood Urea Nitrogen 26 mg/dl (7-17); Carbon Dioxide 33 mmol/L (22.0-30.0); Chloride 104 mmol/L (98-107); Creatinine Clearance Estimated 46 mL/min (50-200); Estimated Glomerular Filt Rate 40 ml/min (>60); GFR (African American) 48 ML/MIN (>60); Globulin 2.5 g/dL (1.3-3.2); Glucose 98 mg/dl (74-100); Potassium 4.1 mmoL/L (3.5-5.1); Sodium 139 mmol/L (136-145); Total Protein,Serum 6.7 g/dl (6.3-8.2)
[2023-01-16 11:17] LABS: D-Dimer 0.41 ug/mL (0.0-0.5)
[2023-01-16 11:27] LABS: Troponin I < 0.01 ng/ml (0.00-0.034)
[2023-01-16 11:30] VITALS: BP 123/60; PULSE 72; O2SAT 95
[2023-01-16 12:00] VITALS: BP 120/55; PULSE 78; O2SAT 95
[2023-01-16 12:18] VITALS: BP 120/55; PULSE 70; RESP 18; TEMP 36.8; O2SAT 94
== END 2023-01-16 12:19 | disposition home or self-care (01) ==
PROVIDERS: Emergency Provider Student in an Organized Health Care Education/Training Program; PCP Physician Assistant
DX: J44.1 Chronic obstructive pulmonary disease with (acute) exacerbation (principal); R91.8 Other nonspecific abnormal finding of lung field; Z86.718 Personal history of other venous thrombosis and embolism; Z87.01 Personal history of pneumonia (recurrent); Z98.51 Tubal ligation status
CPT/HCPCS: 71045; 80053; 84484; 85025; 85378; 93005; 99285

== ENCOUNTER → 2023-01-26 12:34 | Outpatient (CLI) | payer MEDICARE, OTHER, SELFPAY ==
--- NOTE | 2023-01-26 13:01 | CA_ITS ---
FINAL REPORT TECHNIQUE: Ultrasound images of the deep venous system were obtained from the left groin to the calf veins. CLINICAL HISTORY: LLE pain and swelling, on xarelto, prev DVT in LLE. COMPARISON: none FINDINGS: There is echogenic material in the proximal superficial femoral vein and common femoral vein consistent with DVT. The greater saphenous vein, popliteal vein, and proximal calf veins are patent. IMPRESSION: Superficial femoral and common femoral vein thrombosis. Reviewed, Interpreted and Dictated by Luz Marina De Los Santos MD Transcribed by Kelly Mack Authenticated and [facility]
== END ==
PROVIDERS: PCP Physician Assistant; Visit Provider Physician Assistant
DX: M79.89 Other specified soft tissue disorders (principal); R09.89 Other specified symptoms and signs involving the circulatory and respiratory systems
CPT/HCPCS: 93971

== ENCOUNTER → 2023-02-10 09:05 | Outpatient (CLI) | payer MEDICARE, OTHER, SELFPAY ==
--- NOTE | 2023-02-10 09:10 | CT_ITS ---
FINAL REPORT TECHNIQUE: Then section axial CT images of the chest were obtained with contrast. Three-D reformatted images were also obtained.This study was performed with techniques to keep radiation doses as low as reasonably achievable (ALARA). Individualized dose reduction techniques using automated exposure control or adjustment of mA and/or kV according to the patient''s size were employed. CLINICAL HISTORY: SOA, DVT COMPARISON: 01/13/2023 FINDINGS: There is no evidence of pulmonary embolism. There is no evidence of thoracic aortic aneurysm or dissection. There is no evidence of mediastinal or hilar mass or adenopathy. There are multiple small bilateral pulmonary nodules, stable. There is atelectasis or scarring in the right middle lobe and lingula. Limited images of the upper abdomen demonstrate a large gallstone in the gallbladder. IMPRESSION: 1. No evidence of pulmonary embolism. 2. Multiple small bilateral pulmonary nodules, stable. Reviewed, Interpreted and Dictated by Nabeel Cardenas III, MD Transcribed by Radha Bey Authenticated and [facility]
[2023-02-10 09:42] LABS: Blood Urea Nitrogen 25 mg/dl (7-17); Estimated Glomerular Filt Rate 44 ml/min (>60); GFR (African American) 53 ML/MIN (>60)
== END ==
PROVIDERS: PCP Physician Assistant; Visit Provider Physician Assistant
DX: R06.02 Shortness of breath (principal)
CPT/HCPCS: 36415; 71275; 82565; 84520; Q9967

== ENCOUNTER → 2023-03-03 09:00 | Outpatient (CLI) | payer MEDICARE, OTHER, SELFPAY | PROVIDERS: PCP Physician Assistant; Visit Provider Nurse Practitioner Family | DX: R06.02 Shortness of breath (principal) | CPT/HCPCS: 93306 ==

== ENCOUNTER → 2023-06-06 17:05 | Outpatient (CLI) | payer MEDICARE, OTHER, SELFPAY | PROVIDERS: PCP Physician Assistant; Visit Provider Physician Assistant | DX: N39.0 Urinary tract infection, site not specified (principal) | CPT/HCPCS: 87086 ==

== ENCOUNTER → 2023-06-15 17:57 | Outpatient (CLI) | payer MEDICARE, OTHER, SELFPAY ==
[2023-06-15 12:45] LABS: Microscopic, Urine URINE MICROSCOPIC (MICROSCOPIC)
[2023-06-15 13:34] LABS: Appearance,Urine CLEAR (Clear); Bilirubin,Urine Negative (Negative); Blood, Urine TRACE-I (Negative); Color,Urine YELLOW (Yellow); Glucose,Urine (UA) Negative (Negative); Ketones,Urine Negative (Negative); Leukocyte Esterase,Urine Negative (Negative); Nitrate,Urine Negative (Negative); PH,Urine 6.5 (5.0-8.5); Protein,Urine Negative (Negative); Urobilinogen,Urine 0.2 EU/dl (0.2)
[2023-06-15 13:53] LABS: Bacteria,Urine Trace /lpf; RBC,Urine Occasional #/hpf (0-3)
== END ==
PROVIDERS: PCP Physician Assistant; Visit Provider Physician Assistant
DX: N39.0 Urinary tract infection, site not specified (principal)
CPT/HCPCS: 81001; 87086

== ENCOUNTER → 2023-06-20 11:05 | Outpatient (CLI) | payer MEDICARE, OTHER, SELFPAY ==
[2023-06-20 11:40] LABS: Basophils # 0.1 K/mm3 (0-0.2); Basophils % 0.6 % (0.1-2.0); Eosinophils # 0.2 K/mm3 (0.0-0.4); Eosinophils % 2.5 % (0.1-12.0); Hematocrit 37.3 % (37.0-47.0); Hemoglobin 11.8 g/dL (12.2-16.2); Lymphocytes # 2.4 K/mm3 (0.7-4.5); Lymphocytes % 26.3 % (10-50); Mean Corpuscular HGB Conc 31.7 g/dL (31.8-35.4); Mean Corpuscular Volume 81.8 fl (81-99); Mean Platelet Volume 7.8 fl (7.4-10.4); Monocytes # 0.5 K/mm3 (0.1-1.0); Monocytes % 5.8 % (1.7-9.3); Neutrophils # 5.8 K/mm3 (1.8-7.8); Neutrophils % 64.9 % (37.0-80.0); Platelet Count 324 K/mm3 (142-424); Red Blood Count 4.57 M/mm3 (4.20-5.40); Red Cell Distribution Width 15.7 % (11.5-17.5)
[2023-06-20 18:15] LABS: Alanine Aminotransferase 16 U/L (12-78); Alkaline Phosphatase 73 U/L (38-126); Anion Gap 8.4 mEq/L (5-15); Aspartate Amino Transferase 21 U/L (14-36); Bilirubin,Indirect 0.2 mg/dL (0.0-0.9); Bilirubin,Total 0.2 mg/dl (0.2-1.3); Bilirubin,Unconjugated 0.4 mg/dL (0.0-1.1); Blood Urea Nitrogen 23 mg/dl (7-17); Calcium 9.4 mg/dl (8.4-10.2); Carbon Dioxide 30 mmol/L (22.0-30.0); Chloride 105 mmol/L (98-107); Chol/HDL Ratio 3.2 (1-3.5); Cholesterol 157 mg/dl (140-200); Estimated Glomerular Filt Rate 40 ml/min (>60); GFR (African American) 48 ML/MIN (>60); Glucose 85 mg/dl (74-100); HDL Cholesterol 49 mg/dl (40-60); Magnesium 1.8 mg/dl (1.6-2.3); Potassium 4.4 mmoL/L (3.5-5.1); Sodium 139 mmol/L (136-145); Total Protein,Serum 6.2 g/dl (6.3-8.2); Triglycerides 166 mg/dl (30-150); VLDL Cholesterol 33 mg/dL (0-40)
[2023-06-20 18:26] LABS: Direct LDL Cholesterol 61.95 mg/dL (100-129)
[2023-06-20 22:43] LABS: Thyroid Stimulating Hormone 1.37 uIU/mL (0.465-4.68)
== END ==
PROVIDERS: PCP Physician Assistant; Visit Provider Nurse Practitioner
DX: R06.09 Other forms of dyspnea; R91.8 Other nonspecific abnormal finding of lung field; I10 Essential (primary) hypertension; I82.402 Acute embolism and thrombosis of unspecified deep veins of left lower extremity
CPT/HCPCS: 36415; 80048; 80061; 80076; 83735; 84439; 84443; 85025

== ENCOUNTER → 2023-06-22 14:06 | Outpatient (CLI) | payer MEDICARE, OTHER, SELFPAY ==
--- NOTE | 2023-06-22 14:12 | XR_ITS ---
FINAL REPORT CLINICAL HISTORY: Pain in Lumbar region FINDINGS: LUMBAR SPINE Five views demonstrate no acute fracture. There is moderate diffuse degenerative disc disease and spondylosis. There is mild retrolisthesis of L3-4. There is no obvious bone destruction. IMPRESSION: Moderate degenerative changes. Reviewed, Interpreted and Dictated by Meryl Wei MD Transcribed by Gege Lopez Authenticated and [facility]
== END ==
PROVIDERS: PCP Physician Assistant; Visit Provider Physician Assistant
DX: M54.50 Low back pain, unspecified (principal)
CPT/HCPCS: 72110

== ENCOUNTER → 2023-07-05 12:59 | Outpatient (CLI) | payer MEDICARE, OTHER, SELFPAY ==
--- NOTE | 2023-07-05 12:59 | MR_ITS ---
FINAL REPORT CLINICAL HISTORY: low back pain COMPARISON: None FINDINGS: Multiplanar MR imaging of the lumbar spine was performed without contrast. On the sagittal T2-weighted images, disc degeneration and endplate changes are seen at multiple levels. There is mild retrolisthesis of L3 on L4 and L4 on L5. There is no evidence of fracture. No bony mass is identified. The conus has an unremarkable appearance. T11-12: An annular bulge is present with facet osteoarthropathy and osteophyte formation. There is a central inferiorly extruded disc that indents the thecal sac. T12-L1: An annular bulge is present with facet osteoarthropathy and osteophyte formation. There is a left paracentral disc protrusion which indents the thecal sac and produces mild bilateral neural foraminal narrowing. No significant canal stenosis is present. L1-2: An annular bulge is present with facet osteoarthropathy and osteophyte formation. There is a small right paracentral disc protrusion which mildly indents the thecal sac. Mild bilateral neural foraminal narrowing is present without significant canal stenosis. L2-3: An annular bulge is present. There is no significant canal stenosis or neural foraminal narrowing. L3-4: An annular bulge is present with facet osteoarthropathy and osteophyte formation. There is a small right paracentral disc protrusion and moderate right neural foraminal narrowing. No significant canal stenosis is present. L4-5: An annular bulge is present with facet osteoarthropathy and a small broad-based disc protrusion which contacts the L5 nerve roots. There is severe bilateral neural foraminal narrowing but no evidence of significant canal stenosis. L5-S1: An annular bulge is present with facet osteoarthropathy and osteophyte formation. There is severe right and moderate left neural foraminal narrowing but no significant canal stenosis. IMPRESSION: Multilevel degenerative disc disease and spondylosis as described. Reviewed, Interpreted and Dictated by Nabeel Cardenas III, MD Transcribed by Julia Mortensen Authenticated and [facility]
== END ==
PROVIDERS: PCP Physician Assistant; Visit Provider Physician Assistant
DX: M54.50 Low back pain, unspecified (principal)
CPT/HCPCS: 72148; 76376

== ENCOUNTER → 2023-07-20 09:32 | Outpatient (POV) | payer MEDICARE, OTHER, SELFPAY ==
--- NOTE | 2023-07-20 09:38 | EXP.PAIN.OV ---
HPI Data of Consult Patient: new to practice Consult date: 07/20/23 Requesting Physician: Disha Trejo APRN Primary Care Provider: GONZALES Celaya Consult Narrative Reason for consult: Low back pain History of present illness: Ms. Birch is a 77 year old female who presents today as a new patient. She is a referral from Isabela Parr's office. Today she rates her pain an 8 out of 10. Patient states her pain is all in her low back and has been progressively worse over the last month. Today she does state that the pain is not as bad. She does state her pain is an aching, throbbing sensation that is worse with increased activity. She does state the pain is worse with certain movements such as bending, twisting or lifting. Patient denies any radiating symptoms into her lower extremities. Patient does states she has a previous history of back surgery back in 1999 and where she had a discectomy. Patient does states she has tried [id number] Tylenol and ibuprofen along with heat and ice and topicals with minimal improvement. She is scheduled to start physical therapy next week. Patient is on Xarelto daily that is written by Isabela's office. Patient is currently been prescribed [place] 5 mg with 20 tablets provided at the end of last month from Dr. Mendieta's office. Her Tavo is [id number]. CC: Disha Trejo APRN [facility] Disclaimer: The information contained in this section may have been updated after the patient was seen, as this information can be updated by other users. Medical History Allergic rhinitis Bacterial vaginosis Community acquired pneumonia COPD mixed type Dvt femoral (deep venous thrombosis) Dvt femoral (deep venous thrombosis) Dyspnea on exertion Dysuria Lingular pneumonia Multiple lung nodules on CT Multiple pulmonary nodules Pulmonary emphysema Pulmonary nodule Vaginal pain Surgical History History of tubal ligation Family History Other No significant family history Social History Smoking Status: Never smoker alcohol intake: never substance use type: denies use current occupational status: retired Travel in the last 8 weeks: None household members: children housing: house caffeine: No Review of Systems Review of Systems Review of systems:: pertinent systems reviewed and negative unless documented below Review of systems (narrative): Review of Systems: General: No recent weight changes, no fever, no sleep disturbances Respiratory: No cough, no shortness of air, no recurring pulmonary infections Cardiovascular/peripheral vascular: No chest pain, no palpitations, no edema, no shortness of breath Gastrointestinal: No new onset incontinence, normal bowel movements reported Genitourinary: No new onset incontinence Musculoskeletal: Low back pain Psychiatric: [Normal mood/affect] Neurological: [Denies weakness in extremities], [denies balance issues] Meds Home Medications and Allergies Home Medications Medication Instructions Recorded Confirmed Type aspirin 81 mg chewable tablet 81 mg PO DAILY PREVENTION 02/28/18 06/22/23 History calcium carbonate 600 mg-vitamin See Rx Instructions PO .COMPLEX 04/19/22 06/22/23 Rx D3 12.5 mcg (500 unit) capsule #90 caps (Calcium 600 with Vitamin D3) albuterol sulfate 90 mcg/actuation 4 inh inhalation Q4H #8.5 grams 01/16/23 06/22/23 Rx aerosol inhaler albuterol sulfate 1.25 mg/3 mL 1.25 mg (3 mL) inhalation TID 01/31/23 06/22/23 Rx solution for nebulization shortness of breath or wheezing #75 mL ipratropium 0.5 mg-albuterol 3 mg 3 ml inhalation QIDP PRN Shortness 01/31/23 06/22/23 Rx (2.5 mg base)/3 mL nebulization Of Breath Or Wheezing #90 mL soln fluticasone propionate 50 2 spray intranasal DAILY 90 days
[2023-07-20 11:34] VITALS: BP 130/70; PULSE 87; RESP 18; O2SAT 97; BMI 28.5
== END ==
PROVIDERS: PCP Physician Assistant; Visit Provider Nurse Practitioner Family
DX: M54.50 Low back pain, unspecified (principal); G89.29 Other chronic pain; M51.36 Other intervertebral disc degeneration, lumbar region; M47.816 Spondylosis without myelopathy or radiculopathy, lumbar region
CPT/HCPCS: 99202; G0463

== ENCOUNTER 2023-08-01 11:00 | Outpatient (RCR) | payer MEDICARE, OTHER, SELFPAY ==
--- NOTE | 2023-07-25 11:04 | HMH.PTOPEV ---
PT Outpatient Evaluation Rehab PT Outpatient Evaluation Start: 07/25/23 09:49 Freq: Status: Active Protocol: Document 07/25/23 09:49 PDEPATRICE (Rec: 07/25/23 11:04 PDESEROUX [id number]) E-signed By Desmond Grey, PT Outpatient Therapy Subjective History Subjective History Pt. is a 77 year old female who presents to [facility] Outpatient Physical Therapy Services in [place] for the initial evaluation this date( 07/25/23) w/ c/o chronic and intermittent B/L lumbar P! and stiffness of insidious onset that has progressively been getting worse since a few years ago. Pt. denies trauma as SAMUEL to reason why symptoms have progressively been getting worse. Pt. reports chronic history of LBP! ever since my surgery. Pt. reports having an increase in lumbar P! since S/P lumbar discectomy back in 1999, however, symptoms progressively have been getting worse. Pt. reports having the surgery secondary to radicular P! into the LLE, stated having relief from the radicular P!, but noticing and increase in lumbar P!. Pt. reports having the surgery at the same time she was working for [employer] which included a lot of sitting and lifting. Pt. reports current symptoms worsen w/ bending over to pick green beans and standing to wash dishes in the kitchen. Pt . reports having symptom relief w/ sitting and prescribed pain medicine. Recent diagnostic imaging indicates complications in the lumbar spine per pt. report(refer to pt.'s chart through [facility] for further assessment w/ MRI). Pt. reports refusing injections
== END 2023-08-22 13:40 | disposition home or self-care (01) ==
LOC: PT 11:00
PROVIDERS: PCP Physician Assistant; Visit Provider Physician Assistant
DX: M54.50 Low back pain, unspecified (principal)
CPT/HCPCS: 97110; 97140; 97163

== ENCOUNTER → 2023-10-20 10:05 | Outpatient (CLI) | payer MEDICARE, OTHER, SELFPAY ==
--- NOTE | 2023-10-20 10:05 | NM_ITS ---
APPROVED REPORT Exam: Nuclear Stress Test Indication: SOB, SYNCOPE Patient Location: Outpatient Stress Tech: Thuy King [place] Tech:ELHAM Valdivia RT (R)(N)(M) Ht: 5 ft 6 in Wt: 185 lbs Bra Size: C HR: 70 bpm BP: 160/53 mmHg BSA: 1.93 m2 Rhythm: NSR TID: 1.01 BMI: 29.8 History: SOB, SYNCOPE Procedure: Patient received 4.0 mg of intravenous Lexiscan, resting heart rate 70 bpm, resting blood pressure 160/53 mmHg, with Lexiscan maximum heart rate achieved was 93 bpm which is % of the maximum predicted heart rate and blood pressure was 154/52 mmHg. With Lexiscan, patient denied any complaint of chest pain. Cardiac Stress and Resting SPECT Images: Cardiac Stress and Resting SPECT images were obtained using technetium 99m Myoview 29.1 mCi stress and 10.67 mCi at rest. Resting and stress imaging in supine and prone positions demonstrate no evidence of fixed or reversible perfusion defects. Gated imaging demonstrates normal global and regional LV systolic function. LVEF is calculated at 73%. Conclusion: No evidence of fixed or reversible perfusion defects. Gated imaging demonstrates normal global and regional LV systolic function. LVEF is calculated at 73%. Of note, the patient had a brief asymptomatic SVT episode following administration of Lexiscan. Electronically signed by : Nurys Chan MD 10/27/2023 11:19:10
--- NOTE | 2023-10-20 12:51 | CA_ITS ---
APPROVED REPORT Exam: Pharmacologic Technologist: Thuy Juarez, Ht: 5 ft 6 in Wt: 182 lbs BSA: 1.92 m2 HR: 70 bpm BP: 160/53 mmHg Rhythm: NSR Indications: Atypical Angina Medical History Medications: Aspirin,,,,, Pantoprazole,,,,, Flonase,,,,, Duoneb,,,,, XaRELTO,,,,, Albuterol,,,,, Zanaflex,,,,, LidoDERM,,,,, Alendronate,,,,, StIOLto,,,,, BREztri aeroshpere,,,,, Hydrocodone Acetaminophen,,,,, Stress Test Details Test: LEXISCAN HR Resting HR: 74 bpm Max Heart Rate (APMHR): 144 bpm Max HR Achieved: 118 bpm Target HR (85% APMHR): 122 bpm % of APMHR: 82 Recovery HR: 81 bpm BP Resting BP: 160/53 mmHg Max BP: 160/53 mmHg Recovery BP: 144.0/64.0 mmHg ECG Resting ECG: NSR, incomplete RBBB Clinical Exercise duration: 04:09 min Highest Stage Achieved: Exercise capacity: 1.0 METs Stress ECG Conclusion Symptoms: Mild head discomfort. No CP. Arrhythmias/Ectopy: In [facility], there was one 7 beat run of SVT preceded by 3 ectopic atrial rhythm beats ST-T Changes: No significant ST changes. Conclusion: Brief arrhythmia in recovery, otherwise unremarkble Lexiscan stress. Myoview imags reported separately. Test Summary REST . . . . . . . Resting REST 02:15 . . 74 . 160/ 53 . . Stage 1 . . . . . . . Cardiolite injected Stage 1 01:00 . . 95 . . . . Stage 2 01:00 . . 91 . 154/ 59 . . Stage 3 01:00 . . 88 . 140/ 61 . . Stage 4 01:00 . . 90 . 136/ 61 . . Stage 4 02:00 . . 85 . 146/ 64 . . Stage 4 03:00 . . 84 . 133/ 66 . . Stage 4 04:00 . . 81 . 144/ 64 . . Stage 4 04:09 . . 85 . 144/ 64 . Stop exercise at 07:09 RECOVERY 00:08 . . 91 . . . . Electronically signed by : Nurys Chan MD 10/27/2023 11:16:51
== END ==
PROVIDERS: PCP Physician Assistant; Visit Provider Nurse Practitioner
DX: I20.89 Other forms of angina pectoris (principal); I82.409 Acute embolism and thrombosis of unspecified deep veins of unspecified lower extremity; R06.09 Other forms of dyspnea
CPT/HCPCS: 78452; 93017; 93018; A9502; J2785

== ENCOUNTER → 2023-11-08 10:50 | Outpatient (CLI) | payer MEDICARE, OTHER, SELFPAY ==
--- NOTE | 2023-11-08 10:57 | XR_ITS ---
FINAL REPORT CLINICAL HISTORY: left shoulder pain COMPARISON: None FINDINGS: LEFT SHOULDER 3 views of the left shoulder were obtained. There is no acute fracture or dislocation. Visualized joint spaces are normally aligned. There are mild hypertrophic changes at the AC joint. Soft tissues are unremarkable. IMPRESSION: Mild hypertrophic changes without acute bony abnormality. Reviewed, Interpreted and Dictated by Jacky Do MD Transcribed by Kelly Mack Authenticated and [facility]
== END ==
PROVIDERS: PCP Physician Assistant; Visit Provider Nurse Practitioner Family
DX: I20.89 Other forms of angina pectoris (principal); I82.409 Acute embolism and thrombosis of unspecified deep veins of unspecified lower extremity; M25.512 Pain in left shoulder; R91.8 Other nonspecific abnormal finding of lung field
CPT/HCPCS: 73030

== ENCOUNTER 2023-12-14 11:35 | Outpatient (CLI) | payer MEDICARE, OTHER, SELFPAY ==
[2023-12-13 09:04] VITALS: BMI 29.5
[2023-12-14] VITALS (8 sets, daily range): BP systolic 129–169; BP diastolic 66–90; PULSE 56–93; RESP 16–18; TEMP 36.2; O2SAT 95–98
[2023-12-14 12:25] LABS: Chloride 104 mmol/L (98-107); Potassium 3.9 mmoL/L (3.5-5.1); Sodium 138 mmol/L (136-145)
[2023-12-14] MEDS: METOPROLOL TARTRATE 50MG TABLET *IVABRADINE+METOPROLOL REGIMINE 75 MG PO (12:25)
[2023-12-14] MEDS: IVABRADINE HCL 7.5MG TABLET *IVABRADINE+METOPROLOL REGIMINE 15 MG PO (12:25)
[2023-12-14 12:28] LABS: Anion Gap 6.9 mEq/L (5-15); Blood Urea Nitrogen 20 mg/dl (7-17); Calcium 9.1 mg/dl (8.4-10.2); Carbon Dioxide 31 mmol/L (22.0-30.0); Creatinine Clearance Estimated 51 mL/min (50-200); Estimated Glomerular Filt Rate 44 ml/min (>60); GFR (African American) 53 ML/MIN (>60); Glucose 96 mg/dl (74-100)
--- NOTE | 2023-12-14 12:57 | PC.NURSE ---
GFR IS 44. TC TO KIMMIE PEREZ APRN TO DISCUSS. OK TO GIVE 500CC OF WATER BY MOUTH BEFORE CTA, PT AGREEABLE.
[2023-12-14] MEDS: NITROGLYCERIN 0.4MG SL TABLET 0.800000000000000044 MG SL (13:30)
[2023-12-14] MEDS: METOPROLOL TARTRATE 5MG/5ML VIAL *IVABRADINE+METOPROLOL REGIMINE 5 MG IV (13:44)
[2023-12-14] MEDS: IOPAMIDOL-370 (76%);100ML BOTTLE 85 ML IV (13:57)
[2023-12-14] MEDS: SODIUM CHLORIDE 0.9% 10ML SYR (RAD ONLY) 10 ML IV (13:57)
[2023-12-14] MEDS: 0.9 % SODIUM CHLORIDE 50 ML VIAL IV (13:57)
--- NOTE | 2023-12-14 14:05 | PC.NURSE ---
PT BROUGHT TO POST OP FOR RECOVERY, VSS. IN RECLINER, NO C/O.
--- NOTE | 2023-12-14 14:06 | PC.NURSE ---
1330-ARRIVED TO CT, 169/79, NITRO 0.8MG SL GIVEN 1335-POST NITRO 153/74 1350-CTA COMPLETE, 159/91. PT WITHOUT C/O.
== END 2023-12-14 14:55 | disposition home or self-care (01) ==
PROVIDERS: PCP Physician Assistant; Visit Provider Nurse Practitioner Family
DX: I20.89 Other forms of angina pectoris (principal); M25.512 Pain in left shoulder; R91.8 Other nonspecific abnormal finding of lung field; I82.402 Acute embolism and thrombosis of unspecified deep veins of left lower extremity; I25.84 Coronary atherosclerosis due to calcified coronary lesion
CPT/HCPCS: 75571; 75574; 80048; Q9967

== ENCOUNTER 2024-07-18 16:49 | Outpatient (CLI) | payer MEDICARE, OTHER, SELFPAY ==
[2024-07-18 17:03] LABS: Basophils # 0.1 K/mm3 (0-0.2); Basophils % 0.6 % (0.1-2.0); Eosinophils # 0.2 K/mm3 (0.0-0.4); Lymphocytes # 1.5 K/mm3 (0.7-4.5); Lymphocytes % 19.2 % (10-50); Mean Corpuscular HGB Conc 30.5 g/dL (31.8-35.4); Mean Corpuscular Volume 88.5 fl (81-99); Mean Platelet Volume 10.1 fl (7.4-10.4); Monocytes # 0.5 K/mm3 (0.1-1.0); Monocytes % 5.9 % (1.7-9.3); Neutrophils # 5.5 K/mm3 (1.8-7.8); Neutrophils % 71.3 % (37.0-80.0); Platelet Count 324 K/mm3 (142-424); Red Blood Count 4.06 M/mm3 (4.20-5.40); Red Cell Distribution Width 15.2 % (11.5-17.5); White Blood Count 7.8 K/mm3 (4.8-10.8)
[2024-07-18 17:48] LABS: Alanine Aminotransferase 15 U/L (12-78); Albumin Level 3.8 g/dl (3.5-5.0); Albumin/Globulin Ratio 1.5 (1.1-1.8); Alkaline Phosphatase 72 U/L (38-126); Anion Gap 9.5 mEq/L (5-15); Aspartate Amino Transferase 25 U/L (14-36); Bilirubin,Total 0.5 mg/dl (0.2-1.3); Blood Urea Nitrogen 22 mg/dl (7-17); Calcium 9.9 mg/dl (8.4-10.2); Carbon Dioxide 27 mmol/L (22.0-30.0); Chloride 106 mmol/L (98-107); Chol/HDL Ratio 1.8 (1-3.5); Cholesterol 116 mg/dl (140-200); Estimated Glomerular Filt Rate 44 ml/min (>60); GFR (African American) 53 ML/MIN (>60); Globulin 2.5 g/dL (1.3-3.2); Glucose 78 mg/dl (74-100); HDL Cholesterol 63 mg/dl (40-60); Potassium 4.5 mmoL/L (3.5-5.1); Sodium 138 mmol/L (136-145); Total Protein,Serum 6.3 g/dl (6.3-8.2); Triglycerides 82 mg/dl (30-150); VLDL Cholesterol 16 mg/dL (0-40)
[2024-07-18 18:06] LABS: 25-OH Vitamin D, Total 41.8 ng/mL (30-100)
[2024-07-18 18:37] LABS: Vitamin B12 298 pg/mL (239-931)
[2024-07-18 18:45] LABS: Direct LDL Cholesterol < 30.00 mg/dL (100-129)
== END 2024-07-18 23:59 | disposition home or self-care (01) ==
LOC: LAB.DROPOF 16:49
PROVIDERS: PCP Physician Assistant; Visit Provider Physician Assistant
DX: E78.5 Hyperlipidemia, unspecified (principal); R53.83 Other fatigue; M85.80 Other specified disorders of bone density and structure, unspecified site; Z68.29 Body mass index [BMI] 29.0-29.9, adult; E66.3 Overweight
CPT/HCPCS: 80053; 80061; 82306; 82607; 84443; 85025

== ENCOUNTER 2024-08-15 11:12 | Outpatient (CLI) | payer MEDICARE, SELFPAY ==
--- NOTE | 2024-08-15 11:19 | XR_ITS ---
FINAL REPORT CLINICAL HISTORY: LFA/L Wrist pain COMPARISON: None FINDINGS: LEFT WRIST Three views demonstrate no acute fracture or dislocation. There is advanced hypertrophic change involving the basilar joint. Dorsal soft tissue swelling is present overlying the wrist. 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 Reviewed, Interpreted and Dictated by Jacky Do MD Transcribed by Julia Mortensen Authenticated and [facility]
--- NOTE | 2024-08-15 11:19 | XR_ITS ---
FINAL REPORT CLINICAL HISTORY: Distal LFA pain COMPARISON: None FINDINGS: 2 views of the left forearm were obtained. There is no acute fracture or dislocation. There is advanced degenerative change involving the basilar joint. There is dorsal soft tissue swelling overlying the wrist. 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 Reviewed, Interpreted and Dictated by Jacky Do MD Transcribed by Julia Mortensen Authenticated and [facility]
== END 2024-08-15 23:59 | disposition home or self-care (01) ==
LOC: RAD 11:13
PROVIDERS: PCP Nurse Practitioner Family; Visit Provider Nurse Practitioner Family
DX: M79.632 Pain in left forearm (principal); M25.532 Pain in left wrist
CPT/HCPCS: 73090; 73110

== ENCOUNTER 2024-09-21 08:33 | Emergency (ER) | payer MEDICARE, SELFPAY ==
[2024-09-21] VITALS (9 sets, daily range): BP systolic 167–189; BP diastolic 74–95; PULSE 74–93; RESP 18; TEMP 36.4–36.7; O2SAT 94–100; BMI 29.3
--- NOTE | 2024-09-21 08:50 | ED_ITS ---
Discharge Plan Disposition Patient Disposition: Home, Self-Care Prescriptions Prescriptions: New methocarbamol 750 mg tablet 750 mg PO Q8H PRN (Reason: back pain) Qty: 14 0RF lidocaine 5 % adhesive patch,medicated 1 patch topical Q24H Qty: 15 0RF Rx Instructions: leave on most painful area for up to 12 hrs No Action ipratropium-albuterol 0.5 mg-3 mg(2.5 mg base)/3 mL solution for nebulization 3 ml INHALATION QIDP PRN (Reason: Shortness Of Breath Or Wheezing) Qty: 90 1RF Stiolto Respimat 2.5-2.5 mcg/actuation mist 2 puff INHALATION DAILY Qty: 4 5RF methylprednisolone [Medrol (Kobi)] 4 mg tablets,dose pack 4 mg PO DAILY Qty: 21 0RF naproxen 500 mg tablet 500 mg PO BID Qty: 30 0RF albuterol sulfate 1.25 mg/3 mL solution for nebulization 1.25 mg inhalation TID Qty: 75 0RF aspirin 81 mg tablet,chewable 81 mg PO DAILY Qty: 90 0RF Breztri Aerosphere 160-9-4.8 mcg/actuation HFA aerosol inhaler 2 inh inhalation BID Qty: 10.7 5RF calcium carbonate-vitamin D3 [Calcium 600 with Vitamin D3] 600 mg-12.5 mcg (500 unit) capsule See Rx Instructions PO .COMPLEX Qty: 90 3RF Rx Instructions: Take 1 capsule by mouth daily for Osteopenia PO; Xarelto 20 mg tablet See Rx Instructions .ROUTE .COMPLEX Qty: 90 0RF Dose Instruction: TAKE 1 TABLET BY MOUTH ONCE DAILY WITH EVENING MEAL Rx Instructions: TAKE 1 TABLET BY MOUTH ONCE DAILY WITH EVENING MEAL albuterol sulfate 90 mcg/actuation HFA aerosol inhaler 4 inh inhalation Q4H Rx Instructions: 4 puffs every 4 hours while awake for 48 hours then as needed for shortness of breath following Referrals Follow up/Referrals: Mo Butler APRN [Primary Care Provider] - See instructions Activity Restrictions/Add. Instructions Additional Instructions/Restrictions: Please follow-up with your primary care doctor. If you develop numbness, tingl ing or weakness please come back to the emergency department for further workup. Additionally if you fall please come back for further evaluation. Clinical Impressions Clinical Impression: Fall Fracture of transverse process of lumbar vertebra Qualifiers: Encounter type: initial encounter Fracture type: closed Qualified Code(s): S32.009A - Unspecified fracture of unspecified lumbar vertebra, initial encounter for closed fracture Instructions Patient Instructions: Low Back Pain Print Language Print Language: Nepalese Discharge ED Provider: Robin Brown Adult HPI General Chief complaint: PAIN Stated complaint: AO fall, back pain Time Seen by Provider: 09/21/24 08:42 Mode of Arrival: Ambulatory Source of Information: Patient Limitations: No Limitations Description of Symptoms (Recalled from ER Triage Doc. by RN): pt had a fall approx 1 week ago. now having pain in r pelvic,hip, and tail bone area. is able to ambulate History of Present Illness HPI narrative: Patient is a 78-year-old past medical history of COPD, DVTs on Xarelto presenting for right hip pain. According the patient she had a fall about 1 week ago while she was stepping down off a step. She landed on her right hip, did not hit her head or lose consciousness and was able to get up after this fall and continue walking. Patient said prior to the fall she had no chest pain, dizziness, shortness of breath and missed the step causing the fall. She has her son at bedside and he said that she has been otherwise getting around the house and told her son this morning that she was having pain. She has not had a fall since this fall about 1 week ago. Patient has been taking ibuprofen since the fall but this has not been enough to control her pain. Patient has been taking her Xarelto as prescribed and has had no swelling or bruising that she has noticed on that right hip. At this time patient denies chest pain, abdominal pain, shortness of breath, dizziness, headache, numbness, tingling, fever, cough, weakness. Related Data Home Medications ?Medication ?Instructions ?Recorded ?Confirmed albuterol sulfate 90 mcg/actuation 4 inh inhalation Q4H Breathing 07/20/23 08/15/24 aerosol inhaler Problems Previous Rx's ?Medication ?Instructions ?Recorded albuterol sulfate 1.25 mg/3 mL 1.25 mg (3 mL) inhalation TID 01/31/23 solution for nebulization shortness of breath or wheezing #75 mL ipratropium 0.5 mg-albuterol 3 mg 3 ml inhalation QIDP PRN Shortness 10/19/23 (2.5 mg base)/3 mL nebulization Of Breath Or Wheezing #90 mL soln tiotropium 2.5 mcg-olodaterol 2.5 2 puff inhalation DAILY Breathing 09/14/23 mcg/actuation mist for inhalation Problems #4 grams (Stiolto Respimat) aspirin 81 mg chewable tablet 81 mg PO DAILY PREVENTION #90 tabs 10/02/23 budesonide 160 mcg-glycopyr 9 2 inh inhalation BID Breathing 06/04/24 mcg-formot 4.8 mcg/actuation HFA Problems #10.7 grams inhaler (Breztri Aerosphere) calcium 600 mg (as See Rx Instructions PO .COMPLEX 06/04/24 carbonate)-vitamin D3 12.5 mcg #90 caps (500 unit) capsule (Calcium with Vit D3) rivaroxaban 20 mg tablet (Xarelto) See Rx Instructions .Route 08/01/24 .COMPLEX Blood thinner #90 tabs methylprednisolone 4 mg tablets in 4 mg PO DAILY #21 tabs 08/15/24 a dose pack (Medrol (Kobi)) naproxen 500 mg tablet 500 mg PO BID #30 tabs 08/15/24 lidocaine 5 % topical patch 1 patch topical Q24H #15 ea 09/21/24 methocarbamol 750 mg tablet 750 mg PO Q8H PRN back pain #14 09/21/24 tabs Allergies Allergy/AdvReac Type Severity Reaction Status Date / Time amoxicillin [From Augmentin] Allergy Mild Vomiting Verified 08/15/24 10:31 clavulanic acid Allergy Mild Vomiting Verified 08/15/24 10:31 [From Augmentin] [facility] Disclaimer: The information contained in this section may have been updated after the patient was seen, as this information can be updated by other users. Medical History Skin cancer Multiple lung nodules on CT Allergic rhinitis COPD mixed type Multiple pulmonary nodules Pulmonary emphysema Dyspnea on exertion Community acquired pneumonia Dvt femoral (deep venous thrombosis) Dvt femoral (deep venous thrombosis) Lingular pneumonia Bacterial vaginosis Vaginal pain Dysuria Pulmonary nodule Surgical History History of tubal ligation Family History Other Family history of cancer Kidney disease Social History Smoking Status: Never smoker alcohol intake: never substance use type: denies use current occupational status: retired Travel in the last 8 weeks: None household members: children housing: house caffeine: No Other Medical History Have you received the Flu Vaccine for this season: No Have you received the Pneumonia Vaccine: Yes ROS Obtained: Yes Systems reviewed as appropriate & no additional complaints except as documented Physical Exam General General appearance: alert and in no apparent distress Head Head exam: atraumatic Eye Eye exam: Present normal appearance and PERRL Neck Neck exam: Present full ROM; Absent tenderness Chest Chest inspection: Present normal inspection and symmetric chest wall rise; Absent tenderness Respiratory Respiratory exam: Present normal lung sounds bilaterally; Absent respiratory distress Cardiovascular Cardiovascular exam: Present regular rate and normal rhythm Abdominal Exam Abdominal exam: Present soft; Absent distention, tenderness, guarding or rebound Expanded Lower Extremity Exam Tenderness to posterior lateral right hip without bruising or obvious hematoma. Patient is able to bear full weight on her right side while standing.: Upper leg exam: Present other (Palpable and symmetric DP and TP pulses); Absent tenderness, swelling, abrasion, laceration or ecchymosis Knee exam: Present full ROM; Absent tenderness, swelling or effusion Ankle exam: Present full ROM; Absent tenderness or swelling Foot/toe exam: Present full ROM; Absent tenderness or swelling Neurovascular/Tendon exam: Present normal capillary refill; Absent pulse deficit Back Exam Back exam: Present normal inspection; Absent tenderness (No midline tenderness to C, T, L-spine. ) Neurological Exam Neurological exam: Present alert, oriented X3 and normal gait; Absent motor sensory deficit Medical Decision Making Medical Records Screening: Per USPSTF and CDC recommendations, given the prevalence of disease in our region, it is our hospital?s policy to screen for HIV and viral Hepatitis for all patients aged 18 and over and those with ongoing risk factors. Tavo Inquiry Pt receiving controlled substance: No Vital Signs: 09/21/24 08:34 09/21/24 09:00 09/21/24 09:20 Temperature 97.5 F L Temperature Source Oral Pulse Rate 79 83 Pulse Rate [Right] 93 H Respiratory Rate 18 Blood Pressure 171/80 H 180/85 H Blood Pressure [Right Arm] 167/74 H Blood Pressure Mean Blood Pressure Mean [Right Arm] 105 02 Sat by Pulse Oximetry 100 98 99 Oxygen Delivery Method Room Air Room Air Room Air 09/21/24 09:40 09/21/24 10:00 09/21/24 10:20 Temperature Temperature Source Pulse Rate 74 76 86 Pulse Rate [Right] Respiratory Rate Blood Pressure 183/89 H 177/90 H 188/83 H Blood Pressure [Right Arm] Blood Pressure Mean Blood Pressure Mean [Right Arm] 02 Sat by Pulse Oximetry 97 96 99 Oxygen Delivery Method Room Air Room Air Room Air 09/21/24 10:40 09/21/24 11:00 Temperature Temperature Source Pulse Rate 81 80 Pulse Rate [Right] Respiratory Rate 18 18 Blood Pressure 177/95 H 189/91 H Blood Pressure [Right Arm] Blood Pressure Mean 108 111 Blood Pressure Mean [Right Arm] 02 Sat by Pulse Oximetry 97 96 Oxygen Delivery Method Orders (Tests/Meds): ED MEDICATIONS Discontinued Medications Generic Name Dose Route Start Last Admin Trade Name Freq PRN Reason Stop Dose Admin Acetaminophen 500 mg 09/21/24 08:56 09/21/24 09:20 Acetaminophen 500mg Tab PO 09/21/24 08:57 500 mg ONCE ONE Administration Lidocaine 1 each 09/21/24 10:36 09/21/24 10:45 Lidocaine 5% Transdermal Patch TP 09/21/24 10:37 1 each ONCE ONE Administration Oxycodone HCl 5 mg 09/21/24 10:44 09/21/24 10:46 Oxycodone 5mg Immediate Release Tablet PO 09/21/24 10:45 5 mg ONCE ONE Administration ORDERS Category Date Time Status CT bony pelvis Stat Cat Scan 09/21/24 10:00 Completed Femur XR right 2 views [XR femur RT 2V] Stat Exams 09/21/24 08:56 Completed XR hip RT 2-3V w/pelvis Stat Exams 09/21/24 08:56 Completed HIV (1&2) Antibody Rapid Stat Lab 09/21/24 08:43 Ordered Hep C Ab with Reflex to RNA Stat Lab 09/21/24 08:[address] Scan: Pelvis Time Received: 10:[address] Reviewed: Yes I have reviewed the patient's CT results and I have viewed the radiologist's interpretation US Data ED US Reviewed: Yes I have reviewed the patient's US results and I have viewed radiologist's interpretation Medical Decision Narrative: In summary, this 78-year-old female presents to the emergency department today with right hip pain. On initial evaluation patient is hemodynamically stable, alert and in no acute distress. She is able to walk and put weight on her right hip, but had a fall about 1 week ago where she did not hit her head or lose consciousness. She is only having pain in her right hip and has no obvious bruising or hematomas. She has been taking ibuprofen for pain. differential diagnosis includes but is not limited to fracture, neurovascular injury, hematoma, soft tissue injury, ligamentous injury. Based on these concerns, I ordered x-rays, pain medication. Patient received Tylenol, oxycodone, Robaxin for treatment. XR personally interpreted demonstrates no obvious large fracture or dislocation. CT imaging personally interpreted demonstrate no obvious fracture or dislocation. On reassessment patient still having some right hip pain, had no fracture or dislocation on x-ray but due to concern of occult fracture a CT bony pelvis was ordered for further evaluation. CT bony pelvis showed an L3 transverse process fracture. Patient given oxycodone and lidocaine patches and pain relieved. I discussed with patient at bedside and discussed that I will prescribe her nonnarcotic pain medication and that she should follow-up with her primary doctor for physical therapy and possible bracing. Patient was ambulated and able to walk with a strong steady gait without assistance. Son at bedside who lives with patient was also involved in conversation and will watch patient for other falls or difficulty with ambulation. Patient and son given strict return precautions, all questions were answered patient discharged. Patient's prescriptions were reviewed. Admission was considered and at this time felt that patient was safe for discharge as she was able to ambulate, has strong social support at home, and has a primary care doctor to follow-up with. Of note, social determinants of health include poor health literacy. Critical Care Critical Care Time Critical Care Time: No
--- NOTE | 2024-09-21 08:56 | XR_ITS ---
PROCEDURE INFORMATION: Exam: XR Right Femur Exam date and time: 09/21/2024 9:02 AM Age: 78 years old Clinical indication: Pain; Thigh; Right; Additional info: Tenderness to palpation of right hip TECHNIQUE: Imaging protocol: Radiologic exam of the right femur. Views: 2 views. COMPARISON: CR Hip R 09/21/2024 9:00 AM FINDINGS: Bones/joints: Degenerative changes in the hip and knee. There is no evidence of acute fracture.There is no evidence of malalignment or dislocation. Soft tissues: Unremarkable. IMPRESSION: There is no evidence of acute fracture.There is no evidence of malalignment or dislocation.
--- NOTE | 2024-09-21 08:56 | XR_ITS ---
PROCEDURE INFORMATION: Exam: XR Right Hip Exam date and time: 09/21/2024 9:00 AM Age: 78 years old Clinical indication: Hip pain; Right hip; Additional info: Right posterior hip tenderness, previous fall x 1 week TECHNIQUE: Imaging protocol: Radiologic exam of the right hip. Views: 2 or 3 views hip with pelvis when performed. COMPARISON: CR XR HIP RT 2-3V W/PELVIS 07/28/2024 2:13 PM FINDINGS: Bones/joints: Degenerative changes in both hips and lumbar spine and sacroiliac joints. There is no evidence of acute fracture.There is no evidence of malalignment or dislocation. Soft tissues: Unremarkable. IMPRESSION: There is no evidence of acute fracture.There is no evidence of malalignment or dislocation.
[2024-09-21] MEDS: ACETAMINOPHEN 500MG TAB 500 MG PO (09:20)
--- NOTE | 2024-09-21 10:00 | CT_ITS ---
PROCEDURE INFORMATION: Exam: CT Pelvis Without Contrast, Skeleton Exam date and time: 09/21/2024 10:16 AM Age: 78 years old Clinical indication: Hip pain; Right hip; Additional info: Right hip pain, concern for right pelvis FX TECHNIQUE: Imaging protocol: Computed tomography of the pelvis without contrast. Exam focused on the skeleton. Radiation optimization: All CT scans at this facility use at least one of these dose optimization techniques: automated exposure control; mA and/or kV adjustment per patient size (includes targeted exams where dose is matched to clinical indication); or iterative reconstruction. COMPARISON: CR XR HIP RT 2-3V W/PELVIS 09/21/2024 9:00 AM FINDINGS: Intestine: Diverticulosis of the rectosigmoid. No diverticulitis Bones/joints: Lucency through the right transverse process of L3 (series 3, image 1) consistent with acute nondisplaced fracture. Soft tissues: Unremarkable. IMPRESSION: Lucency through the right transverse process of L3 (series 3, image 1) consistent with acute nondisplaced fracture.
[2024-09-21] MEDS: LIDOCAINE 5% TRANSDERMAL PATCH 1 EACH TP (10:45)
[2024-09-21] MEDS: OXYCODONE 5MG IMMEDIATE RELEASE TABLET 5 MG PO (10:46)
== END 2024-09-21 11:21 | disposition home or self-care (01) ==
PROVIDERS: Emergency Provider Student in an Organized Health Care Education/Training Program; PCP Nurse Practitioner Family
DX: S32.009A Unspecified fracture of unspecified lumbar vertebra, initial encounter for closed fracture (principal); R10.2 Pelvic and perineal pain; M25.551 Pain in right hip; M53.3 Sacrococcygeal disorders, not elsewhere classified; W18.30XA Fall on same level, unspecified, initial encounter; Y93.9 Activity, unspecified; Y92.9 Unspecified place or not applicable
CPT/HCPCS: 72192; 73502; 73552; 99284

== ENCOUNTER 2024-09-24 14:00 | Outpatient (CLI) | payer MEDICARE, SELFPAY ==
[2024-09-24 18:23] LABS: Basophils % 0.4 % (0.1-2.0); Eosinophils # 0.4 K/mm3 (0.0-0.4); Eosinophils % 4.6 % (0.1-12.0); Hematocrit 35.1 % (37.0-47.0); Hemoglobin 11.3 g/dL (12.2-16.2); Lymphocytes # 2.2 K/mm3 (0.7-4.5); Lymphocytes % 24.7 % (10-50); Mean Corpuscular HGB Conc 32.1 g/dL (31.8-35.4); Mean Corpuscular Hemoglobin 26.8 pg (27.0-31.2); Mean Corpuscular Volume 83.7 fl (81-99); Mean Platelet Volume 8.3 fl (7.4-10.4); Monocytes # 0.5 K/mm3 (0.1-1.0); Monocytes % 5.9 % (1.7-9.3); Neutrophils # 5.7 K/mm3 (1.8-7.8); Neutrophils % 64.3 % (37.0-80.0); Platelet Count 343 K/mm3 (142-424); Red Cell Distribution Width 15.6 % (11.5-17.5); White Blood Count 8.8 K/mm3 (4.8-10.8)
[2024-09-24 19:01] LABS: Alanine Aminotransferase 27 U/L (12-78); Albumin/Globulin Ratio 1.8 (1.1-1.8); Alkaline Phosphatase 62 U/L (38-126); Anion Gap 13.9 mEq/L (5-15); Aspartate Amino Transferase 29 U/L (14-36); Bilirubin,Total 0.5 mg/dl (0.2-1.3); Blood Urea Nitrogen 16 mg/dl (7-17); Calcium 9.3 mg/dl (8.4-10.2); Carbon Dioxide 28 mmol/L (22.0-30.0); Chloride 101 mmol/L (98-107); Estimated Glomerular Filt Rate 48 ml/min (>60); GFR (African American) 58 ML/MIN (>60); Globulin 2.2 g/dL (1.3-3.2); Glucose 76 mg/dl (74-100); Potassium 3.9 mmoL/L (3.5-5.1); Sodium 139 mmol/L (136-145); Total Protein,Serum 6.2 g/dl (6.3-8.2)
[2024-09-24 19:28] LABS: Hemoglobin A1C 5.4 % (4.0-6.0)
[2024-09-24 19:40] LABS: Creatinine,Urine Random 106 mg/dL (Not Estab.); Microalbumin < 6.000 mg/L (0-16.7)
[2024-09-24 20:53] LABS: Ferritin 11.6 ng/ml (11.1-264)
[2024-09-24 21:36] LABS: Vitamin B12 341 pg/mL (239-931)
[2024-09-24 21:38] LABS: Folate 5.89 ng/mL
[2024-09-26 17:51] LABS: Peripheral Smear Review Scanned Result
== END 2024-09-24 23:59 | disposition home or self-care (01) ==
LOC: LAB.DROPOF 09-25 12:51
PROVIDERS: PCP Internal Medicine; Visit Provider Internal Medicine
DX: N18.31 Chronic kidney disease, stage 3a (principal); D64.9 Anemia, unspecified; Z13.1 Encounter for screening for diabetes mellitus
CPT/HCPCS: 80053; 82043; 82570; 82607; 82728; 82746; 83036; 85025

== ENCOUNTER 2024-10-08 13:07 | Outpatient (CLI) | payer MEDICARE, SELFPAY ==
--- NOTE | 2024-10-08 13:11 | CT_ITS ---
FINAL REPORT CLINICAL HISTORY: pain of left shoulder COMPARISON: Thin section axial images were obtained of the left shoulder before and after the administration of IV contrast. Coronal and sagittal reconstructions were obtained and reviewed. This study was performed with techniques to keep radiation doses as low as reasonably achievable, (ALARA). Individualized dose reduction techniques using automated exposure control or adjustment of mA and/or kV according to the patient's size were employed. FINDINGS: There is no fracture or dislocation. No bony mass is identified. There is mild AC joint degenerative change. The musculature is intact. There is a 16 mm calcification superior to the humeral head which likely represents calcific tendinitis. No abnormal contrast enhancement is seen. Limited images of the lungs demonstrate several small left lung nodules which are nonspecific. IMPRESSION: No acute bony abnormality. Findings of calcific tendinitis. Lung nodules. Recommend follow-up CT chest in 6 months. Reviewed, Interpreted and Dictated by Nabeel Cardenas III, MD Transcribed by Kelly Mack Authenticated and [facility]
[2024-10-08] MEDS: SODIUM CHLORIDE 0.9% 10ML SYR (RAD ONLY) 10 ML IV (14:16)
[2024-10-08] MEDS: IOPAMIDOL-370 (76%);100ML BOTTLE 75 ML IV (14:16)
== END 2024-10-08 23:59 | disposition home or self-care (01) ==
LOC: RAD 13:08
PROVIDERS: PCP Internal Medicine; Visit Provider Internal Medicine
DX: M25.512 Pain in left shoulder (principal); W19.XXXA Unspecified fall, initial encounter
CPT/HCPCS: 73202; Q9967

== ENCOUNTER 2024-10-25 11:56 | Outpatient (CLI) | payer MEDICARE, SELFPAY ==
--- NOTE | 2024-10-25 11:57 | CT_ITS ---
FINAL REPORT TECHNIQUE: Axial images through the chest was performed with and without contrast by computed tomography. Sagittal and coronal reformatted images were obtained and reviewed. This study was performed with techniques to keep radiation doses as low as reasonably achievable, (ALARA). Individualized dose reduction techniques using automated exposure control or adjustment of mA and/or kV according to the patient's size were employed. CLINICAL HISTORY: follow up scan for known lung nodules COMPARISON: 02/10/2023 FINDINGS: There is no evidence of lymphadenopathy. No pleural or pericardial effusion is identified. The heart is normal in size. There are bilateral subcentimeter noncalcified pulmonary nodules, unchanged in size and number. Index lesion in the inferior right upper lobe measures 6 mm, was 6 mm. No new nodule is identified. There is no evidence of consolidation. Limited images of the upper abdomen reveal a gallstone. There is no acute osseous abnormality. IMPRESSION: Pulmonary nodules, stable since December 2021 are presumably benign. Reviewed, Interpreted and Dictated by Luz Marina De Los Santos MD Transcribed by Karen Flanagan Authenticated and [facility]
[2024-10-25] MEDS: IOPAMIDOL-370 (76%);100ML BOTTLE 75 ML IV (12:35)
[2024-10-25] MEDS: SODIUM CHLORIDE 0.9% 10ML SYR (RAD ONLY) 10 ML IV (12:35)
== END 2024-10-25 23:59 | disposition home or self-care (01) ==
LOC: RAD 11:57
PROVIDERS: PCP Internal Medicine; Visit Provider Internal Medicine
DX: R91.8 Other nonspecific abnormal finding of lung field (principal)
CPT/HCPCS: 71270; Q9967

== ENCOUNTER 2024-12-24 10:04 | Outpatient (CLI) | payer MEDICARE, SELFPAY ==
[2024-12-24 11:03] LABS: Alanine Aminotransferase 18 U/L (12-78); Albumin Level 4.3 g/dl (3.5-5.0); Alkaline Phosphatase 71 U/L (38-126); Aspartate Amino Transferase 27 U/L (14-36); Bilirubin,Direct 0.2 mg/dl (0.0-0.4); Bilirubin,Indirect 0.3 mg/dL (0.0-0.9); Bilirubin,Total 0.5 mg/dl (0.2-1.3); Bilirubin,Unconjugated 0.3 mg/dL (0.0-1.1); Chol/HDL Ratio 1.6 (1-3.5); Cholesterol 109 mg/dl (140-200); HDL Cholesterol 67 mg/dl (40-60); Total Protein,Serum 6.4 g/dl (6.3-8.2); Triglycerides 94 mg/dl (30-150); VLDL Cholesterol 19 mg/dL (0-40)
[2024-12-24 11:17] LABS: Direct LDL Cholesterol < 30.00 mg/dL (100-129)
== END 2024-12-24 23:59 | disposition home or self-care (01) ==
LOC: LAB 10:06
PROVIDERS: PCP Internal Medicine; Visit Provider Physician Assistant
DX: I11.9 Hypertensive heart disease without heart failure (principal); M25.512 Pain in left shoulder; G89.29 Other chronic pain; I82.509 Chronic embolism and thrombosis of unspecified deep veins of unspecified lower extremity; R91.8 Other nonspecific abnormal finding of lung field
CPT/HCPCS: 36415; 80061; 80076

== ENCOUNTER 2025-01-06 11:15 | Outpatient (CLI) | payer MEDICARE, SELFPAY ==
[2025-01-06 19:01] LABS: Basophils # 0.1 K/mm3 (0-0.2); Basophils % 0.9 % (0.1-2.0); Eosinophils # 0.5 K/mm3 (0.0-0.4); Eosinophils % 5.5 % (0.1-12.0); Hematocrit 37.8 % (37.0-47.0); Hemoglobin 11.4 g/dL (12.2-16.2); Lymphocytes # 1.8 K/mm3 (0.7-4.5); Lymphocytes % 22.1 % (10-50); Mean Corpuscular HGB Conc 30.2 g/dL (31.8-35.4); Mean Corpuscular Volume 86.1 fl (81-99); Mean Platelet Volume 10.9 fl (7.4-10.4); Monocytes # 0.6 K/mm3 (0.1-1.0); Monocytes % 7.3 % (1.7-9.3); Neutrophils # 5.3 K/mm3 (1.8-7.8); Platelet Count 292 K/mm3 (142-424); Red Blood Count 4.39 M/mm3 (4.20-5.40); White Blood Count 8.2 K/mm3 (4.8-10.8)
[2025-01-06 19:37] LABS: Chloride 103 mmol/L (98-107)
[2025-01-06 19:38] LABS: Albumin Level 4.3 g/dl (3.5-5.0); Potassium 4.6 mmoL/L (3.5-5.1); Sodium 138 mmol/L (136-145)
[2025-01-06 19:40] LABS: Alanine Aminotransferase 19 U/L (12-78); Anion Gap 11.6 mEq/L (5-15); Aspartate Amino Transferase 25 U/L (14-36); Blood Urea Nitrogen 17 mg/dl (7-17); Carbon Dioxide 28 mmol/L (22.0-30.0); Estimated Glomerular Filt Rate 48 ml/min (>60); GFR (African American) 58 ML/MIN (>60)
[2025-01-06 19:41] LABS: Albumin/Globulin Ratio 2.2 (1.1-1.8); Alkaline Phosphatase 74 U/L (38-126); Bilirubin,Total 0.4 mg/dl (0.2-1.3); Calcium 9.8 mg/dl (8.4-10.2); Glucose 90 mg/dl (74-100); Total Protein,Serum 6.3 g/dl (6.3-8.2)
[2025-01-06 20:10] LABS: Hemoglobin A1C 5.6 % (4.0-6.0)
== END 2025-01-06 23:59 | disposition home or self-care (01) ==
LOC: LAB.DROPOF 01-07 09:07
PROVIDERS: PCP Internal Medicine; Visit Provider Internal Medicine
DX: D64.9 Anemia, unspecified (principal); J44.1 Chronic obstructive pulmonary disease with (acute) exacerbation; Z13.1 Encounter for screening for diabetes mellitus; M81.0 Age-related osteoporosis without current pathological fracture; Z79.01 Long term (current) use of anticoagulants; N18.31 Chronic kidney disease, stage 3a; I10 Essential (primary) hypertension
CPT/HCPCS: 80053; 83036; 85025

== ENCOUNTER 2025-01-09 07:45 | Emergency (ER) | payer MEDICARE, SELFPAY ==
[2025-01-09 07:47] VITALS: BP 162/79; PULSE 77; RESP 22; TEMP 36.8; O2SAT 95; BMI 32.4
--- NOTE | 2025-01-09 07:55 | ECG_ITS ---
APPROVED REPORT Exam: Resting ECG HR:79 bpm ECG Measurements Heart Rate 79 AXES OR 166 P 72 QRSd 89 QRS 76 QT 356 T 71 QTc 391 Conclusion SINUS RHYTHM POSSIBLE RIGHT VENTRICULAR CONDUCTION DELAY [RSR (QR) IN V1/V2] BORDERLINE ECG No STEMI Electronically signed by : MARIO WALKER, 01/10/2025 05:58:52
[2025-01-09 08:00] VITALS: BP 156/80; PULSE 71; RESP 17; O2SAT 97
--- NOTE | 2025-01-09 08:04 | PC.NURSE ---
DR OCONNOR AT BEDSIDE
--- NOTE | 2025-01-09 08:05 | CT_ITS ---
FINAL REPORT TECHNIQUE: Thin section axial CT with contrast with multiplanar reconstruction This study was performed with techniques to keep radiation doses as low as reasonably achievable, (ALARA). Individualized dose reduction techniques using automated exposure control or adjustment of mA and/or kV according to the patient's size were employed. CLINICAL HISTORY: SOA, h/o PE, L lung abnormal sounds COMPARISON: CT of the chest 10/25/2024 FINDINGS: CTA CHEST: Pulmonary vessels enhance in normal fashion without evidence of embolism. Thoracic aorta shows no dissection or aneurysm. Numerous small 5 mm or less peripheral pulmonary nodules are noted, stable compared with the prior exam. Examples of these nodules include images #73 through 75 in the left lower lobe, and images #78 through 82 in the posterolateral right lower lobe. These likely represent granulomas. There is no significant pleural effusion. There is no significant pericardial effusion. No mediastinal or hilar adenopathy is present. IMPRESSION: No evidence of pulmonary embolism No acute lung disease. Stable bilateral pulmonary nodules. Reviewed, Interpreted and Dictated by Meryl Wei MD Transcribed by Julia Mortensen Authenticated and [facility]
[2025-01-09 08:13] LABS: Basophils # 0.1 K/mm3 (0-0.2); Eosinophils # 0.5 K/mm3 (0.0-0.4); Eosinophils % 6.7 % (0.1-12.0); Hemoglobin 11.2 g/dL (12.2-16.2); Lymphocytes % 27.1 % (10-50); Mean Corpuscular HGB Conc 31.1 g/dL (31.8-35.4); Mean Corpuscular Hemoglobin 26.4 pg (27.0-31.2); Mean Corpuscular Volume 84.9 fl (81-99); Monocytes # 0.5 K/mm3 (0.1-1.0); Monocytes % 6.7 % (1.7-9.3); Neutrophils # 4.3 K/mm3 (1.8-7.8); Neutrophils % 58.2 % (37.0-80.0); Platelet Count 299 K/mm3 (142-424); Red Blood Count 4.24 M/mm3 (4.20-5.40); Red Cell Distribution Width 15.1 % (11.5-17.5); White Blood Count 7.4 K/mm3 (4.8-10.8)
[2025-01-09 08:16] LABS: Coronavirus 19, PCR Not Detected (NotDetected); Influenza A, PCR Not Detected (NotDetected); Influenza B, PCR Not Detected (NotDetected)
[2025-01-09 08:18] LABS: Lactate Venous 1.2 mmol/L (0.4-2.0); VBG Base Excess 2.1 mmol/L (-2.4-2.3); VBG HCO3 28.2 mmol/L (23-30); VBG Oxygen Saturation 67.4 % (50-70); VBG PH 7.32 mmol/L (7.31-7.41); VBG PO2 37.9 mmol/L (28-40); VBG Total CO2 29.9 mmol/L (23-27)
[2025-01-09] MEDS: IPRATROPIUM/ALBUTEROL 3 ML NEB 9 ML IH (08:19)
[2025-01-09] MEDS: METHYLPREDNISOLONE SOD SUCC 125MG VIAL 125 MG IV (08:19)
[2025-01-09 08:21] LABS: VBG PCO2 55.9 mmol/L (35-51)
[2025-01-09 08:22] LABS: Alanine Aminotransferase 23 U/L (12-78); Albumin Level 4.3 g/dl (3.5-5.0); Alkaline Phosphatase 60 U/L (38-126); Anion Gap 13.3 mEq/L (5-15); Aspartate Amino Transferase 27 U/L (14-36); Bilirubin,Total 0.6 mg/dl (0.2-1.3); Blood Urea Nitrogen 21 mg/dl (7-17); Calcium 9.5 mg/dl (8.4-10.2); Carbon Dioxide 31 mmol/L (22.0-30.0); Chloride 101 mmol/L (98-107); Creatinine Clearance Estimated 51 mL/min (50-200); Estimated Glomerular Filt Rate 43 ml/min (>60); GFR (African American) 53 ML/MIN (>60); Globulin 2.2 g/dL (1.3-3.2); Glucose 101 mg/dl (74-100); Potassium 4.3 mmoL/L (3.5-5.1); Sodium 141 mmol/L (136-145); Total Protein,Serum 6.5 g/dl (6.3-8.2)
[2025-01-09 08:30] VITALS: BP 154/63; PULSE 68; RESP 19; O2SAT 100
[2025-01-09 08:31] LABS: NT Pro Brain Natriuretic Pep. 285 pg/mL (0-450)
--- NOTE | 2025-01-09 08:32 | PC.NURSE ---
ROUNDED ON THE PT. THE PT VOICES THAT SHE DOES NOT NEED ANYTHING AT THIS TIME. CALL LIGHT IS WITHIN REACH OF THE PT. FAMILY MEMBER IS PRESENT AT THE BEDSIDE.
--- NOTE | 2025-01-09 08:46 | PC.NURSE ---
pt to xray via wheelchair
[2025-01-09 08:48] LABS: Troponin I < 0.01 ng/ml (0.00-0.034)
[2025-01-09] MEDS: 0.9 % SODIUM CHLORIDE 50 ML VIAL IV (08:52)
[2025-01-09] MEDS: SODIUM CHLORIDE 0.9% 10ML SYR (RAD ONLY) 10 ML IV (08:52)
[2025-01-09] MEDS: IOPAMIDOL-370 (76%);100ML BOTTLE 85 ML IV (08:52)
--- NOTE | 2025-01-09 09:06 | [facility].EDCP ---
Discharge Plan Disposition Patient Disposition: Home, Self-Care Condition: Good Prescriptions Prescriptions: New prednisone 20 mg tablet 40 mg PO DAILY 5 Days Qty: 10 0RF azithromycin 500 mg tablet 500 mg PO DAILY 3 Days Qty: 3 0RF ipratropium-albuterol 0.5 mg-3 mg(2.5 mg base)/3 mL solution for nebulization 3 ml inhalation Q4H PRN (Reason: wheezing) Qty: 90 1RF No Action rosuvastatin [Crestor] 5 mg tablet 5 mg PO DAILY Qty: 90 3RF lisinopril 5 mg tablet 5 mg PO DAILY Qty: 30 2RF aspirin 81 mg tablet,chewable 81 mg PO DAILY Qty: 90 0RF Xarelto 20 mg tablet See Rx Instructions .ROUTE .COMPLEX Qty: 90 0RF Dose Instruction: TAKE 1 TABLET BY MOUTH ONCE DAILY WITH EVENING MEAL Rx Instructions: TAKE 1 TABLET BY MOUTH ONCE DAILY WITH EVENING MEAL alendronate 70 mg tablet 70 mg PO WEEKLY Qty: 12 1RF calcium carbonate-vitamin D3 [Oyster Shell Calcium-Vit D3] 500 mg-5 mcg (200 unit) tablet 1 tab PO DAILY Patient Comments: TAKE 1 TABLET BY MOUTH ONCE DAILY FOR OSTEOPENIA Referrals Follow up/Referrals: Wali Rogers DO [Primary Care Provider] - See instructions Macey Marie MD [Physician] - See instructions Jhon Chan MD [Staff Physician] - See instructions Clinical Impressions Clinical Impression: Dyspnea on exertion, Acute exacerbation of chronic obstructive pulmonary disease Instructions Patient Instructions: DI for Chronic Obstructive Pulmonary Disease, DI for Shortness of Breath Print Language Print Language: German Discharge ED Provider: Disha Lentz General Chief Complaint: Shortness of Breath/Dyspnea Stated Complaint: SOA, body aches, headache Time Seen by Provider: 01/09/25 08:05 Mode of Arrival: Family Vehicle Source of Information: Patient and Medical Record Limitations: No Limitations Description of Symptoms (Recalled from ER Triage Doc. by RN): Pt c/o dry cough, body aches, SOA, elevated BP, and general feeling of unwell that has been worsening for over the last 2 wks. States she saw her PCP several days ago d/t these reasons and he started her on an allergy pill and BP meds. She is on Xarelto d/t a hx of bloot clots to her legs, since . Deines any dizziness or chest pain. History of Present Illness HPI narrative: This patient is a 79-year-old female with a history of hypertension, COPD, prior DVT on Xarelto presenting to the emergency department for evaluation with concern for shortness of breath. Patient states that she has had dry cough, body aches, shortness of breath, and generally feeling unwell for the last 2 weeks but it has acutely worsened today. She states that she saw her primary care provider for this several days ago and was started on allergy meds and blood pressure meds, but otherwise he did not do anything to help her breathing. She think she is having a flareup of her COPD. She denies fevers, sputum production, chest pain, abdominal pain, nausea, vomiting, changes bowel movements, or other concerns. Related Data Home Medications ?Medication ?Instructions ?Recorded ?Confirmed calcium 500 mg (as 1 tab PO DAILY 01/09/25 01/09/25 carbonate)-vitamin D3 5 mcg (200 unit) tablet (Oyster Shell Calcium-Vitamin D3) Previous Rx's ?Medication ?Instructions ?Recorded aspirin 81 mg chewable tablet 81 mg PO DAILY PREVENTION #90 tabs 10/02/23 rivaroxaban 20 mg tablet (Xarelto) See Rx Instructions .Route 10/29/24 .COMPLEX Blood thinner #90 tabs alendronate 70 mg tablet 70 mg PO WEEKLY #12 tabs 12/12/24 rosuvastatin 5 mg tablet (Crestor) 5 mg PO DAILY #90 tabs 12/19/24 lisinopril 5 mg tablet 5 mg PO DAILY #30 tabs 01/06/25 azithromycin 500 mg tablet 500 mg PO DAILY 3 days #3 tabs 01/09/25 ipratropium 0.5 mg-albuterol 3 mg 3 ml inhalation Q4H PRN wheezing 01/09/25 (2.5 mg base)/3 mL nebulization #90 mL soln prednisone 20 mg tablet 40 mg (2 x 20 mg) PO DAILY 5 days 01/09/25 #10 tabs Allergies Allergy/AdvReac Type Severity Reaction Status Date / Time amoxicillin (From Augmentin) Allergy Mild Vomiting Verified 01/06/25 10:32 clavulanic acid (From Allergy Mild Vomiting Verified 01/06/25 10:32 Augmentin) [facility] Disclaimer: The information contained in this section may have been updated after the patient was seen, as this information can be updated by other users. Medical History Skin cancer Multiple lung nodules on CT Allergic rhinitis COPD mixed type Multiple pulmonary nodules Pulmonary emphysema Dyspnea on exertion Community acquired pneumonia Dvt femoral (deep venous thrombosis) Dvt femoral (deep venous thrombosis) Lingular pneumonia Bacterial vaginosis Vaginal pain Dysuria Pulmonary nodule Surgical History History of tubal ligation Family History Other Family history of cancer Kidney disease Social History Smoking Status: Never smoker alcohol intake: never substance use type: denies use current occupational status: retired Travel in the last 8 weeks: None household members: children housing: house caffeine: No Other Medical History Have you received the Flu Vaccine for this season: No Have you received the Pneumonia Vaccine: Yes ROS Obtained: Yes All systems reviewed & no additional complaints except as documented Physical Exam General General appearance: alert and in no apparent distress Head Head exam: atraumatic and normocephalic Eye Eye exam: Present normal appearance, PERRL and EOMI ENT ENT exam: Present normal exam, normal oropharynx, mucous membranes moist and normal external ear exam Neck Neck exam: Present normal inspection, full ROM and trachea midline; Absent tenderness Chest Chest inspection: Present normal inspection and symmetric chest wall rise; Absent tenderness Respiratory Respiratory exam: Present wheezes, prolonged expiratory phase and other (Wheezes, left greater than right); Absent respiratory distress, stridor or accessory muscle use Cardiovascular Cardiovascular exam: Present regular rate and normal rhythm Abdominal Exam Abdominal exam: Present soft; Absent distention, tenderness or guarding Extremities Exam Extremities exam: Present normal inspection, full ROM and normal capillary refill; Absent tenderness or edema Back Exam Back exam: Present normal inspection and full ROM; Absent tenderness Neurological Exam Neurological exam: Present alert, oriented X3, CN II-XII intact and normal gait; Absent motor sensory deficit Psychiatric Psychiatric exam: Present normal affect and normal mood Skin Skin exam: Present warm and dry HEART Score HEART Score HEART Score assessment performed?: Yes History (anamnesis): Slightly suspicious ECG: Normal Age: >65 years Risk factors: 3 or more risk factors Troponin: </= normal limit HEART Score: 4 Critical Care Critical Care Time Critical Care Time: No Medical Decision Making Tavo Inquiry Pt receiving controlled substance: No Vital Signs Vital Signs: 01/09/25 07:47 01/09/25 08:00 01/09/25 08:30 Temperature 98.2 F Temperature Source Oral Pulse Rate 71 68 Pulse Rate [Right] 77 Respiratory Rate 22 17 19 Blood Pressure 156/80 H 154/63 H Blood Pressure [Right Arm] 162/79 H Blood Pressure Mean [Right Arm] 106 Blood Pressure Source Blood Pressure Source [Right Arm] Automatic Cuff 02 Sat by Pulse Oximetry 95 97 100 Oxygen Delivery Method Room Air Room Air Room Air 01/09/25 10:25 Temperature 98.0 F Temperature Source Oral Pulse Rate 87 Pulse Rate [Right] Respiratory Rate 20 Blood Pressure 165/60 H Blood Pressure [Right Arm] Blood Pressure Mean [Right Arm] Blood Pressure Source Automatic Cuff Blood Pressure Source [Right Arm] 02 Sat by Pulse Oximetry Oxygen Delivery Method Room Air Lab Data Labs: Lab Results 01/09/25 07:55: WBC 7.4, RBC 4.24, Hgb 11.2 L, Hct 36.0 L, MCV 84.9, MCH 26.4 L, MCHC 31.1 L, RDW 15.1, Plt Count 299, MPV 10.0, Neut % (Auto) 58.2, Lymph % (Auto) 27.1, [place] % (Auto) 6.7, Eos % (Auto) 6.7, Baso % (Auto) 1.0, Neut # (Auto) 4.3, Lymph # (Auto) 2.0, [place] # (Auto) 0.5, Eos # (Auto) 0.5 H, Baso # (Auto) 0.1, Sodium 141, Potassium 4.3, Chloride 101, Carbon Dioxide 31 H, Anion Gap 13.3, BUN 21 H, Creatinine 1.20 H, Estimated Creat Clear 51, Estimated GFR 43 L, Est GFR ( Amer) 53 L, Glucose 101 H, Calcium 9.5, Total Bilirubin 0.6, AST 27, ALT 23, Alkaline Phosphatase 60, Troponin I < 0.01, NT-Pro-B Natriuret Pep 285, Total Protein 6.5, Albumin 4.3, Globulin 2.2, Albumin/Globulin Ratio 2.0 H, SARS-CoV-2 (PCR) Not detected, HCV Ab BALDO w/Rflx PCR Qn Negative, HIV Ag/Ab Combo Qual Negative, Influenza A Untype (PCR) Not detected, Influenza Type B (PCR) Not detected 01/09/25 08:05: VBG pH 7.32, VBG pCO2 55.9 H, VBG pO2 37.9, VBG HCO3 28.2, VBG Total CO2 29.9 H, VBG O2 Saturation 67.4, VBG Base Excess 2.1, VBG Lactic Acid 1.2 01/09/25 07:55 01/09/25 07:55 Response Orders (Tests/Meds): ED MEDICATIONS Discontinued Medications Generic Name Dose Route Start Last Admin Trade Name Freq PRN Reason Stop Dose Admin Albuterol/Ipratropium 9 ml 01/09/25 08:05 01/09/25 08:19 Ipratropium/Albuterol 3 Ml Neb IH 01/09/25 08:06 9 ml ONCE ONE Administration Iopamidol 85 ml 01/09/25 08:50 01/09/25 08:52 Iopamidol-370 (76%);100ml Bottle IV 01/09/25 08:51 85 ml ONCE ONE Administration Methylprednisolone Sodium Succinate 125 mg 01/09/25 08:10 01/09/25 08:19 Methylprednisolone Sod Succ 125mg Vial IV 01/09/25 08:11 125 mg ONCE ONE Administration Sodium Chloride 50 ml 01/09/25 08:50 01/09/25 08:52 0.9 % Sodium Chloride 50 Ml Vial IV 01/09/25 08:51 50 ml ONCE ONE Administration Sodium Chloride 10 ml 01/09/25 08:50 01/09/25 08:52 Sodium Chloride 0.9% 10ml Syr (Rad Only) IV 01/09/25 08:51 10 ml ONCE ONE Administration ORDERS Category Date Time Status CT angio chest PE protocol Stat Cat Scan 01/09/25 08:05 Completed BNP [NT Pro Brain Natriuretic Pep.] Stat Lab 01/09/25 07:55 Completed Complete Blood Count Auto Diff Stat Lab 01/09/25 07:55 Completed Comprehensive Metabolic Panel Stat Lab 01/09/25 07:55 Completed HIV Combo Stat Lab 01/09/25 07:55 Completed Hepatitis C Ab Qual. W/ RFX Stat Lab 01/09/25 07:55 Completed Rapid PCR Covid and Flu A/B Stat Lab 01/09/25 07:55 Completed Trop I [Troponin I] Stat Lab 01/09/25 07:55 Completed VBG [Venous Blood Gas] Stat RT 01/09/25 08:05 Completed ECG Data Tracing #1: Attestation: I reviewed this ECG and interpreted as documented below: ECG Narrative: Normal sinus rhythm with a ventricular rate of 79 bpm. Right ventricular conduction delay. No acute STEMI. Normal axis ECG initial impression date: 01/09/25 ECG initial impression time: 07:58 MDM Narrative Medical Decision Narrative: In summary, this patient is a 79-year-old female presenting to the Emergency Department for evaluation of shortness of breath for 2 weeks has been progressively worsening. Differential diagnoses considered include but are not limited to COPD exacerbation, CHF, pneumonia, PE, respiratory failure. Ruling out the most morbid conditions drove assessment. It should be noted patient's history includes COPD, prior history of DVT which may or may not be at goal therapy. This complicates all aspects of care by increasing patient's risk for morbidity. I reviewed patient's past medical records and noted recent PCP evaluation 01/06/2025. On exam, the patient is sitting upright in no acute distress. She has wheezing noted, left greater than right, but vitals are reassuring on cardiac telemetry on room air. No chest pain noted. Workup included CBC, CMP, troponin, VBG, chest CTA, viral swab, EKG. EKG obtained is reassuring. Patient was given DuoNebs x 3 as well as IV methylprednisolone for symptomatic improvement.. I independently interpreted CT prior to the radiologist read and noted no PE, no large pneumonia. Please see their read for final interpretation. Labs were obtained that demonstrated reassuring CBC without significant leukocytosis. She has mild anemia. VBG is reassuring without decompensation of respiratory acidosis, which is chronically compensated. Kidney function around her baseline. Viral swab negative. On reassessment, patient had good improvement after administration of DuoNeb's and steroids. She states that she is out of her nebs at home, so I did refill these. Ultimately, her oxygen saturation is great on room air and she has no significant increased work of breathing. I feel she likely has COPD exacerbation based on acute worsening, cough, wheezing. Will prescribe her steroids and nebs as well as azithromycin. Instructions for close follow-up outpatient were given as well as strict return precautions. Patient was discharged after all questions were answered..
--- NOTE | 2025-01-09 10:15 | PC.NURSE ---
DR OCONNOR AT BEDSIDE TO UPDATE PT
[2025-01-09 10:25] VITALS: BP 165/60; PULSE 87; RESP 20; TEMP 36.7; O2SAT 95
[2025-01-09 10:33] LABS: HIV Combo NEGATIVE (Negative)
[2025-01-09 10:40] LABS: Hepatitis C Ab Qual. W/ RFX NEGATIVE (Negative)
== END 2025-01-09 10:33 | disposition home or self-care (01) ==
PROVIDERS: Emergency Provider Emergency Medicine; PCP Internal Medicine
DX: J44.1 Chronic obstructive pulmonary disease with (acute) exacerbation (principal); R06.02 Shortness of breath; R05.9 Cough, unspecified; M79.10 Myalgia, unspecified site; I10 Essential (primary) hypertension
CPT/HCPCS: 71275; 80053; 82803; 83880; 84484; 85025; 86803; 87389; 87636; 93005; 96374; 99285; J2919; J7620; Q9967

== ENCOUNTER 2025-01-11 18:37 | Emergency (ER) | payer MEDICARE, SELFPAY ==
[2025-01-11 18:38] VITALS: BP 162/72; PULSE 86; RESP 20; TEMP 36.6; O2SAT 100; BMI 29.5
[2025-01-11 18:43] VITALS: BP 162/72; PULSE 101; O2SAT 96
--- NOTE | 2025-01-11 18:58 | ED_ITS ---
Discharge Plan Disposition Patient Disposition: Home, Self-Care Condition: Good Prescriptions Prescriptions: New methocarbamol 500 mg tablet 500 mg PO QID 10 Days Qty: 40 0RF lidocaine HCl 4 % adhesive patch,medicated 1 patch topical DAILY Qty: 30 0RF No Action rosuvastatin [Crestor] 5 mg tablet 5 mg PO DAILY Qty: 90 3RF lisinopril 5 mg tablet 5 mg PO DAILY Qty: 30 2RF aspirin 81 mg tablet,chewable 81 mg PO DAILY Qty: 90 0RF Xarelto 20 mg tablet See Rx Instructions .ROUTE .COMPLEX Qty: 90 0RF Dose Instruction: TAKE 1 TABLET BY MOUTH ONCE DAILY WITH EVENING MEAL Rx Instructions: TAKE 1 TABLET BY MOUTH ONCE DAILY WITH EVENING MEAL alendronate 70 mg tablet 70 mg PO WEEKLY Qty: 12 1RF calcium carbonate-vitamin D3 [Oyster Shell Calcium-Vit D3] 500 mg-5 mcg (200 unit) tablet 1 tab PO DAILY Patient Comments: TAKE 1 TABLET BY MOUTH ONCE DAILY FOR OSTEOPENIA prednisone 20 mg tablet 40 mg PO DAILY 5 Days Qty: 10 0RF azithromycin 500 mg tablet 500 mg PO DAILY 3 Days Qty: 3 0RF ipratropium-albuterol 0.5 mg-3 mg(2.5 mg base)/3 mL solution for nebulization 3 ml inhalation Q4H PRN (Reason: wheezing) Qty: 90 1RF Referrals Follow up/Referrals: Wali Rogers DO [Primary Care Provider] - See instructions Activity Restrictions/Add. Instructions Additional Instructions/Restrictions: Alternate Tylenol and ibuprofen every 3 hours or take both medications together every 6 hours. Do not take ibuprofen on empty stomach. You can take the muscle relaxer up to 4 times per day. Apply lidocaine patch every 12 hours. Follow-up with your primary care doctor in the next 3 days for reevaluation. Return to the ER if your symptoms worsen or you are developing new concerning symptoms related to your back pain. Clinical Impressions Clinical Impression: Contusion of muscle, Fall Instructions Patient Instructions: DI for Low Back Pain Print Language Print Language: Yi Discharge ED Provider: Ynes Garcia General Adult HPI <Ynes Garcia MD - Last Filed: 01/11/25 21:27> General Chief complaint: Back Pain/Injury Stated complaint: AO 01/11/25 0400 injury lower back Time Seen by Provider: 01/11/25 18:42 History of Present Illness HPI narrative: Masha Birch is a 79 y/o female presenting with back pain. Pt experienced a fall this morning at 4am. Patient was attempting to get to her bathroom when she urinated on herself and was attempting to change her clothes when she fell. She hit her back on the bed frame. She denies hitting her head or losing consciousness. She was able to get herself up and ambulate. She took Tylenol around noon today and her son gave her a leftover lidocaine patch. She complains of pain over the area of bruising. She denies numbness, weakness, bowel or bladder dysfunction, saddle anesthesia. Patient takes Xarelto. Related Data Home Medications ?Medication ?Instructions ?Recorded ?Confirmed calcium 500 mg (as 1 tab PO DAILY 01/09/25 01/11/25 carbonate)-vitamin D3 5 mcg (200 unit) tablet (Oyster Shell Calcium-Vitamin D3) Previous Rx's ?Medication ?Instructions ?Recorded aspirin 81 mg chewable tablet 81 mg PO DAILY PREVENTION #90 tabs 10/02/23 rivaroxaban 20 mg tablet (Xarelto) See Rx Instructions .Route 10/29/24 .COMPLEX Blood thinner #90 tabs alendronate 70 mg tablet 70 mg PO WEEKLY #12 tabs 12/12/24 rosuvastatin 5 mg tablet (Crestor) 5 mg PO DAILY #90 tabs 12/19/24 lisinopril 5 mg tablet 5 mg PO DAILY #30 tabs 01/06/25 azithromycin 500 mg tablet 500 mg PO DAILY 3 days #3 tabs 01/09/25 ipratropium 0.5 mg-albuterol 3 mg 3 ml inhalation Q4H PRN wheezing 01/09/25 (2.5 mg base)/3 mL nebulization #90 mL soln prednisone 20 mg tablet 40 mg (2 x 20 mg) PO DAILY 5 days 01/09/25 #10 tabs lidocaine HCl 4 % topical patch 1 patch topical DAILY #30 ea 01/11/25 methocarbamol 500 mg tablet 500 mg PO QID 10 days #40 tabs 01/11/25 Allergies Allergy/AdvReac Type Severity Reaction Status Date / Time amoxicillin (From Augmentin) Allergy Mild Vomiting Verified 01/11/25 18:46 clavulanic acid (From Allergy Mild Vomiting Verified 01/11/25 18:46 Augmentin) <Angelika Adrian, [employer] - Last Filed: 01/11/25 20:51> General Mode of Arrival: Ambulatory Source of Information: Patient Limitations: No Limitations Description of Symptoms (Recalled from ER Triage Doc. by RN): Patient presents ambulatory. Offered the patient a wheelchair. She declined. Ambulated with smooth steady gait. States she fell this morning around 0400. States she hit her back on the bed post. Denies LOC. Denies N/V. Denies loss of bladder or bowel. The patient's son states that the patient has a bruise on her right lower back that he noted when he placed a lidocaine patch. Patient continues to rate her pain a 10/10. States she took Tylenol earlier with no results. [facility] <Ynes Garcia MD - Last Filed: 01/11/25 21:27> [facility] Medical History Skin cancer Multiple lung nodules on CT Allergic rhinitis COPD mixed type Multiple pulmonary nodules Pulmonary emphysema Dyspnea on exertion Community acquired pneumonia Dvt femoral (deep venous thrombosis) Dvt femoral (deep venous thrombosis) Lingular pneumonia Bacterial vaginosis Vaginal pain Dysuria Pulmonary nodule Surgical History History of tubal ligation Family History Other Family history of cancer Kidney disease Social History Smoking Status: Never smoker alcohol intake: never substance use type: denies use current occupational status: retired Travel in the last 8 weeks: None household members: children housing: house caffeine: No Have you lived/traveled outside [place] in past 30 days?: No Contact w/someone who lives/traveled outside [place] past 30 days?: No Exposure to someone with infectious disease in past 14 days?: No Do you have a fever (greater than 100.4 F or 38 C)?: No Have you tested positive for COVID-19: No Exposed to someone with COVID-19 in past 14 days?: No Do you have a sore throat?: No Do you have a cough?: No Do you have any weakness?: No Do you have any diarrhea?: No Are you experiencing any unusual bleeding?: No Do you have any muscle aches/pain?: No Do you have any abdominal pain?: No Are you experiencing loss of taste or smell?: No <Angelika Adrian APRN - Last Filed: 01/11/25 20:51> [facility] Disclaimer: The information contained in this section may have been updated after the patient was seen, as this information can be updated by other users. Other Medical History Have you received the Flu Vaccine for this season: No Have you received the Pneumonia Vaccine: Yes <Ynes Garcia MD - Last Filed: 01/11/25 21:27> ROS Obtained: Yes All systems reviewed & no additional complaints except as documented Physical Exam <Ynes Garcia MD - Last Filed: 01/11/25 21:27> General General appearance: alert and in no apparent distress Head Head exam: atraumatic Respiratory Respiratory exam: Present normal lung sounds bilaterally Cardiovascular Cardiovascular exam: Present regular rate and normal rhythm Abdominal Exam Abdominal exam: Present soft; Absent distention or tenderness Extremities Exam Extremities exam: Present full ROM; Absent tenderness or edema Back Exam Back exam: Present full ROM, tenderness (Right flank, bruising to right flank) and muscle spasm; Absent paraspinal tenderness or vertebral tenderness Neurological Exam Neurological exam: Present alert, oriented X3 and normal gait; Absent motor sensory deficit Skin Skin exam: Present warm and dry Medical Decision Making <Ynes Garcia MD - Last Filed: 01/11/25 21:27> Medical Records Medical records reviewed: Yes I reviewed the patient's medical records. Tavo Inquiry Pt receiving controlled substance: No Tavo was queried for this patient: No Vital Signs: 01/11/25 18:38 01/11/25 18:43 01/11/25 19:00 Temperature 97.9 F Temperature Source Oral Pulse Rate 101 H 88 Pulse Rate [Radial] 86 Respiratory Rate 20 Blood Pressure 162/72 H 130/60 Blood Pressure [R Arm] 162/72 H Blood Pressure Mean [R Arm] 102 Blood Pressure Source [R Arm] Automatic Cuff 02 Sat by Pulse Oximetry 100 96 95 Oxygen Delivery Method Room Air Room Air Room Air 01/11/25 19:07 Temperature 98 F Temperature Source Pulse Rate 84 Pulse Rate [Radial] Respiratory Rate 16 Blood Pressure 128/65 Blood Pressure [R Arm] Blood Pressure Mean [R Arm] Blood Pressure Source [R Arm] 02 Sat by Pulse Oximetry Oxygen Delivery Method Lab Data Lab results reviewed: Yes I reviewed the patient's lab results. Orders (Tests/Meds): ED MEDICATIONS Discontinued Medications Generic Name Dose Route Start Last Admin Trade Name Michelle PRN Reason Stop Dose Admin Acetaminophen 1,000 mg 01/11/25 18:57 01/11/25 19:01 Acetaminophen 500mg Tab PO 01/11/25 18:58 1,000 mg ONCE ONE Administration Ibuprofen 800 mg 01/11/25 18:59 01/11/25 19:01 Ibuprofen 800 Mg Tablet PO 01/11/25 19:00 800 mg ONCE ONE Administration Methocarbamol 1,000 mg 01/11/25 18:59 01/11/25 19:02 Methocarbamol 500mg Tablet PO 01/11/25 19:00 1,000 mg ONCE ONE Administration Medical Decision Narrative: In summary, this is a 79-year-old female presenting with back pain. Differential diagnosis includes was not limited to, muscular contusion, spinal fracture versus malalignment, cauda equina, sciatica, among others. Patient ambulatory in the department. Patient has no neurologic deficits on exam. Patient has region of bruising on the right flank with a lidocaine patch over it. Based on ground-level fall and lack of neurologic deficits or bony tenderness, no imaging indicated at this time. We discussed symptomatic treatment with Tylenol, ibuprofen, Robaxin and lidocaine patch. Patient treated with these medications prior to discharge. Patient and family in agreement with this plan. We discussed symptom changes that would require reevaluation. Patient discharged in stable condition. Ynes Garcia MD <Angelika Adrian APRN - Last Filed: 01/11/25 20:51> Medical Records Screening: Per USPSTF and CDC recommendations, given the prevalence of disease in our region, it is our hospital?s policy to screen for HIV and viral Hepatitis for all patients aged 18 and over and those with ongoing risk factors. Vital Signs: 01/11/25 18:38 01/11/25 18:43 01/11/25 19:00 Temperature 97.9 F Temperature Source Oral Pulse Rate 101 H 88 Pulse Rate [Radial] 86 Respiratory Rate 20 Blood Pressure 162/72 H 130/60 Blood Pressure [R Arm] 162/72 H Blood Pressure Mean [R Arm] 102 Blood Pressure Source [R Arm] Automatic Cuff 02 Sat by Pulse Oximetry 100 96 95 Oxygen Delivery Method Room Air Room Air Room Air 01/11/25 19:07 Temperature 98 F Temperature Source Pulse Rate 84 Pulse Rate [Radial] Respiratory Rate 16 Blood Pressure 128/65 Blood Pressure [R Arm] Blood Pressure Mean [R Arm] Blood Pressure Source [R Arm] 02 Sat by Pulse Oximetry Oxygen Delivery Method Orders (Tests/Meds): ED MEDICATIONS Discontinued Medications Generic Name Dose Route Start Last Admin Trade Name Freq PRN Reason Stop Dose Admin Acetaminophen 1,000 mg 01/11/25 18:57 01/11/25 19:01 Acetaminophen 500mg Tab PO 01/11/25 18:58 1,000 mg ONCE ONE Administration Ibuprofen 800 mg 01/11/25 18:59 01/11/25 19:01 Ibuprofen 800 Mg Tablet PO 01/11/25 19:00 800 mg ONCE ONE Administration Methocarbamol 1,000 mg 01/11/25 18:59 01/11/25 19:02 Methocarbamol 500mg Tablet PO 01/11/25 19:00 1,000 mg ONCE ONE Administration Critical Care <Ynes Garcia MD - Last Filed: 01/11/25 21:27> Critical Care Time Critical Care Time: No
[2025-01-11 19:00] VITALS: BP 130/60; PULSE 88; O2SAT 95
[2025-01-11] MEDS: IBUPROFEN 800 MG TABLET PO (19:01)
[2025-01-11] MEDS: ACETAMINOPHEN 500MG TAB 1000 MG PO (19:01)
[2025-01-11] MEDS: METHOCARBAMOL 500MG TABLET 1000 MG PO (19:02)
[2025-01-11 19:07] VITALS: BP 128/65; PULSE 84; RESP 16; TEMP 36.6
== END 2025-01-11 19:11 | disposition home or self-care (01) ==
PROVIDERS: Emergency Provider Student in an Organized Health Care Education/Training Program; PCP Internal Medicine
DX: M54.50 Low back pain, unspecified (principal); W18.39XA Other fall on same level, initial encounter; Y93.89 Activity, other specified; Y92.003 Bedroom of unspecified non-institutional (private) residence as the place of occurrence of the external cause
CPT/HCPCS: 99283

== ENCOUNTER 2025-01-23 09:07 | Emergency (ER) | payer MEDICARE, SELFPAY ==
[2025-01-23 09:08] VITALS: BP 163/65; PULSE 86; RESP 16; TEMP 36.6; O2SAT 99; BMI 28.7
[2025-01-23 09:13] VITALS: BP 163/65; PULSE 84; O2SAT 99
[2025-01-23 09:30] VITALS: BP 147/71; PULSE 85; O2SAT 98
[2025-01-23 10:00] VITALS: BP 156/77; PULSE 86; O2SAT 97
--- NOTE | 2025-01-23 10:00 | PC.NURSE ---
DR OCONNOR AT BEDSIDE
--- NOTE | 2025-01-23 10:04 | HMH.EDGENADL ---
Discharge Plan Disposition Patient Disposition: Home, Self-Care Condition: Good Prescriptions Prescriptions: New methocarbamol 750 mg tablet 750 mg PO Q8H PRN (Reason: pain) Qty: 20 0RF lidocaine [Lidoderm] 5 % adhesive patch,medicated 1 patch topical DAILY Qty: 15 0RF Rx Instructions: leave on most painful area for up to 12 hrs hydrocodone-acetaminophen 5-325 mg tablet 1 tab PO Q8H PRN (Reason: pain) Qty: 12 0RF No Action ipratropium-albuterol 0.5 mg-3 mg(2.5 mg base)/3 mL solution for nebulization 3 ml inhalation Q4H PRN (Reason: wheezing) Qty: 180 8RF albuterol sulfate 90 mcg/actuation HFA aerosol inhaler 1 inh inhalation QID PRN (Reason: shortness of breath or wheezing) Qty: 8.5 8RF rosuvastatin [Crestor] 5 mg tablet 5 mg PO DAILY Qty: 90 3RF aspirin 81 mg tablet,chewable 81 mg PO DAILY Qty: 90 0RF Xarelto 20 mg tablet See Rx Instructions .ROUTE .COMPLEX Qty: 90 0RF Dose Instruction: TAKE 1 TABLET BY MOUTH ONCE DAILY WITH EVENING MEAL Rx Instructions: TAKE 1 TABLET BY MOUTH ONCE DAILY WITH EVENING MEAL alendronate 70 mg tablet 70 mg PO WEEKLY Qty: 12 1RF lisinopril 5 mg tablet See Rx Instructions .ROUTE .COMPLEX Qty: 90 3RF Dose Instruction: Take 1 tablet by mouth once daily Rx Instructions: Take 1 tablet by mouth once daily calcium carbonate-vitamin D3 [Oyster Shell Calcium-Vit D3] 500 mg-5 mcg (200 unit) tablet 1 tab PO DAILY Patient Comments: TAKE 1 TABLET BY MOUTH ONCE DAILY FOR OSTEOPENIA prednisone 20 mg tablet 40 mg PO DAILY 5 Days Qty: 10 0RF methocarbamol 500 mg tablet 500 mg PO QID 10 Days Qty: 40 0RF lidocaine HCl 4 % adhesive patch,medicated 1 patch topical DAILY Qty: 30 0RF Referrals Follow up/Referrals: Wali Rogers DO [Primary Care Provider] - See instructions Activity Restrictions/Add. Instructions Additional Instructions/Restrictions: You were evaluated in the emergency department today. You were diagnosed with 3 rib fractures on the left side of left ribs 9, 10, and 11. You also have an age-indeterminate fracture of T1 vertebrae, but since you do not have pain or tenderness here I feel this is likely not new. I am prescribing you medications to take as needed for pain. Use caution when taking narcotic pain medications, as they can be sedating. Do not drive or operate heavy machinery while taking these medications. You are very high risk for developing pneumonia in the setting of rib fractures, so please use the incentive spirometer provided to you. I recommend using it for 10 breaths every hour while you are awake. Please follow-up closely with your primary care provider over the next 48 hours for reassessment. Return to the emergency department right away for new or worsening symptoms, such as significant worsening in pain, difficulty breathing, or other concerns. Clinical Impressions Clinical Impression: Fracture, ribs, Fall Instructions Patient Instructions: How to Use an Incentive Spirometer, DI for Rib Fracture Print Language Print Language: Scottish Discharge ED Provider: Disha Lentz General Adult HPI General Chief complaint: Fall Stated complaint: Fall 01/21/2025-Pain on all L side of body Time Seen by Provider: 01/23/25 09:18 Mode of Arrival: Ambulatory Source of Information: Patient Limitations: No Limitations Description of Symptoms (Recalled from ER Triage Doc. by RN): Patient reports falling on Monday and hitting her left side on the side of the bath tub. Denies any LOC but does take a blood thinner but is unsure what thinner she takes. Denies hitting her head or being down for a long time. History of Present Illness HPI narrative: This patient is a 79-year-old female with history of DVT on Xarelto, hypertension, hyperlipidemia, frequent falls presenting to the emergency department for a fall. Patient states that 2 days ago, she slipped and fell in the shower while washing her feet, landing on her left side. She hit her left side on the bathtub. She did not hit her head or lose consciousness. She states she is having pain in her left side/flank. She is still ambulatory. No head injury, loss of consciousness, neck pain, back pain, chest pain, abdominal pain, numbness, tingling, or other concerns. She reports she was well prior to the fall Related Data Home Medications ?Medication ?Instructions ?Recorded ?Confirmed calcium 500 mg (as 1 tab PO DAILY 01/09/25 01/21/25 carbonate)-vitamin D3 5 mcg (200 unit) tablet (Oyster Shell Calcium-Vitamin D3) Previous Rx's ?Medication ?Instructions ?Recorded aspirin 81 mg chewable tablet 81 mg PO DAILY PREVENTION #90 tabs 10/02/23 rivaroxaban 20 mg tablet (Xarelto) See Rx Instructions .Route 10/29/24 .COMPLEX Blood thinner #90 tabs alendronate 70 mg tablet 70 mg PO WEEKLY #12 tabs 12/12/24 rosuvastatin 5 mg tablet (Crestor) 5 mg PO DAILY #90 tabs 12/19/24 prednisone 20 mg tablet 40 mg (2 x 20 mg) PO DAILY 5 days 01/09/25 #10 tabs lidocaine HCl 4 % topical patch 1 patch topical DAILY #30 ea 01/11/25 methocarbamol 500 mg tablet 500 mg PO QID 10 days #40 tabs 01/11/25 albuterol sulfate 90 mcg/actuation 1 inh inhalation QID PRN shortness 01/21/25 aerosol inhaler of breath or wheezing #8.5 grams ipratropium 0.5 mg-albuterol 3 mg 3 ml inhalation Q4H PRN wheezing 01/21/25 (2.5 mg base)/3 mL nebulization #180 mL soln hydrocodone 5 mg-acetaminophen 325 1 tab PO Q8H PRN pain #12 tabs 01/23/25 mg tablet lidocaine 5 % topical patch 1 patch topical DAILY #15 ea 01/23/25 (Lidoderm) lisinopril 5 mg tablet See Rx Instructions .Route 01/23/25 .COMPLEX #90 tabs methocarbamol 750 mg tablet 750 mg PO Q8H PRN pain #20 tabs 01/23/25 Allergies Allergy/AdvReac Type Severity Reaction Status Date / Time amoxicillin (From Augmentin) Allergy Mild Vomiting Verified 01/21/25 13:45 clavulanic acid (From Allergy Mild Vomiting Verified 01/21/25 13:45 Augmentin) [facility] Disclaimer: The information contained in this section may have been updated after the patient was seen, as this information can be updated by other users. Medical History Skin cancer Multiple lung nodules on CT Allergic rhinitis COPD mixed type Multiple pulmonary nodules Pulmonary emphysema Dyspnea on exertion Community acquired pneumonia Dvt femoral (deep venous thrombosis) Dvt femoral (deep venous thrombosis) Lingular pneumonia Bacterial vaginosis Vaginal pain Dysuria Pulmonary nodule Surgical History History of tubal ligation Family History Other Family history of cancer Kidney disease Social History Smoking Status: Never smoker alcohol intake: never substance use type: denies use current occupational status: retired Travel in the last 8 weeks: None household members: children housing: house caffeine: No Have you lived/traveled outside [place] in past 30 days?: No Contact w/someone who lives/traveled outside US past 30 days?: No Exposure to someone with infectious disease in past 14 days?: No Do you have a fever (greater than 100.4 F or 38 C)?: No Have you tested positive for COVID-19: No Exposed to someone with COVID-19 in past 14 days?: No Do you have a sore throat?: No Do you have a cough?: No Do you have any weakness?: No Do you have any diarrhea?: No Are you experiencing any unusual bleeding?: No Do you have any muscle aches/pain?: No Do you have any abdominal pain?: No Are you experiencing loss of taste or smell?: No Other Medical History Have you received the Flu Vaccine for this season: No Have you received the Pneumonia Vaccine: Yes ROS Obtained: Yes All systems reviewed & no additional complaints except as documented Physical Exam General General appearance: alert and in no apparent distress Head Head exam: atraumatic and normocephalic Eye Eye exam: Present normal appearance, PERRL and EOMI ENT ENT exam: Present normal exam, normal oropharynx, mucous membranes moist and normal external ear exam Neck Neck exam: Present normal inspection, full ROM and trachea midline; Absent tenderness Chest Chest inspection: Present symmetric chest wall rise and tenderness (L posterolateral, no stepoff/deformity) Respiratory Respiratory exam: Present normal lung sounds bilaterally; Absent respiratory distress, wheezes, stridor or accessory muscle use Cardiovascular Cardiovascular exam: Present regular rate and normal rhythm Abdominal Exam Abdominal exam: Present soft; Absent distention, tenderness or guarding Extremities Exam Extremities exam: Present normal inspection, full ROM and normal capillary refill; Absent tenderness or edema Back Exam Back exam: Present normal inspection and full ROM; Absent tenderness Neurological Exam Neurological exam: Present alert, oriented X3, CN II-XII intact and normal gait; Absent motor sensory deficit Psychiatric Psychiatric exam: Present normal affect and normal mood Skin Skin exam: Present warm and dry Medical Decision Making Medical Records Medical records reviewed: Yes I reviewed the patient's medical records. Screening: Per USPSTF and CDC recommendations, given the prevalence of disease in our region, it is our hospital?s policy to screen for HIV and viral Hepatitis for all patients aged 18 and over and those with ongoing risk factors. Tavo Inquiry Pt receiving controlled substance: Yes Tavo was queried for this patient: Yes Risks and benefits of using a controlled substance: were discussed with pt by me Vital Signs: 01/23/25 09:08 01/23/25 09:13 01/23/25 09:30 Temperature 97.9 F Temperature Source Oral Pulse Rate 84 85 Pulse Rate [Radial] 86 Respiratory Rate 16 Blood Pressure 163/65 H 147/71 H Blood Pressure [Right Arm] 163/65 H Blood Pressure Mean [Right Arm] 97 Blood Pressure Source Blood Pressure Source [Right Arm] Automatic Cuff Blood Pressure Position Blood Pressure Position [Right Arm] Sitting 02 Sat by Pulse Oximetry 99 99 98 Oxygen Delivery Method Room Air 01/23/25 10:00 01/23/25 10:30 01/23/25 11:54 Temperature 98.0 F Temperature Source Oral Pulse Rate 86 102 H 82 Pulse Rate [Radial] Respiratory Rate 16 Blood Pressure 156/77 H 184/110 H 166/75 H Blood Pressure [Right Arm] Blood Pressure Mean [Right Arm] Blood Pressure Source Automatic Cuff Blood Pressure Source [Right Arm] Blood Pressure Position Sitting Blood Pressure Position [Right Arm] 02 Sat by Pulse Oximetry 97 95 Oxygen Delivery Method Room Air Room Air Room Air Lab Data Lab results reviewed: Yes I reviewed the patient's lab results. Orders (Tests/Meds): ED MEDICATIONS Discontinued Medications Generic Name Dose Route Start Last Admin Trade Name Freq PRN Reason Stop Dose Admin Acetaminophen 1,000 mg 01/23/25 10:06 01/23/25 10:13 Acetaminophen 500mg Tab PO 01/23/25 10:07 1,000 mg ONCE ONE Administration Ketorolac Tromethamine 30 mg 01/23/25 10:07 01/23/25 10:14 Ketorolac 30mg/Ml Vial IM 01/23/25 10:08 30 mg ONCE ONE Administration Lidocaine 1 each 01/23/25 10:06 01/23/25 10:13 Lidocaine 5% Transdermal Patch TP 01/23/25 10:07 1 each ONCE ONE Administration ORDERS Category Date Time Status CT abdomen pelvis wo con Stat Cat Scan 01/23/25 10:[address] cervical spine wo con Stat Cat Scan 01/23/25 10:[address] chest wo con Stat Cat Scan 01/23/25 10:[address] head/brain wo con Stat Cat Scan 01/23/25 10:[address] lumbar spine wo con Stat Cat Scan 01/23/25 10:[address] thoracic spine wo con Stat Cat Scan 01/23/25 10:06 Completed Medical Decision Narrative: In summary, this patient is a 79-year-old female presenting to the Emergency Department for evaluation of left side pain after a fall. Differential diagnoses considered include but are not limited to rib fracture, contusion, strain/sprain, pneumothorax, spine fracture, head trauma. Ruling out the most morbid conditions drove assessment. It should be noted patient's history includes DVT on Xarelto, hypertension, hyperlipidemia, COPD which may or may not be at goal therapy. This complicates all aspects of care by increasing patient's risk for morbidity. I reviewed patient's past medical records and noted previous evaluations for COPD exacerbation and falls in the past. On exam, patient is sitting upright in no acute distress. She ambulated in here without issue. Vitals are reassuring on cardiac telemetry. She does have tenderness over the left posterior lateral ribs but otherwise no obvious traumatic injuries noted on exam. No increased work of breathing, no adventitious lung sounds. Abdominal exam is benign. Workup included CT head, CT spines, CT chest/abdomen/pelvis without IV contrast. Patient was given IM Toradol, oral Tylenol, topical Lidoderm patch for symptomatic improvement of pain. I independently interpreted CT scans prior to the radiologist read and noted nondisplaced rib fractures on the left. Please see their read for final interpretation. They also noted concern for a T1 age-indeterminate fracture, but the patient has no pain or tenderness here at all. I feel that this likely not acute. On reassessment, she is feeling better. She has nondisplaced rib fractures that are from a fall 2 days ago and a trace pleural effusion on the left. She is able to pull well on symptom spirometry and has no increased work of breathing with normal vital signs on cardiac telemetry. I discussed with her admission for further evaluation and management of rib fractures and prevention of pneumonia versus discharged home with incentive spirometry and pain control. She would rather try going home. Given this, I prescribed her medications for pain and given instructions for use of incentive spirometer. She was discharged with strict return precautions and instructions for very close follow-up with primary care. Critical Care Critical Care Time Critical Care Time: No
--- NOTE | 2025-01-23 10:06 | CT_ITS ---
FINAL REPORT TECHNIQUE: Thin section axial CT with sagittal reconstruction without contrast This study was performed with techniques to keep radiation doses as low as reasonably achievable, (ALARA). Individualized dose reduction techniques using automated exposure control or adjustment of mA and/or kV according to the patient''s size were employed. CLINICAL HISTORY: fall in shower onto L side, pain on entire L side FINDINGS: No cervical fracture identified. There is an age-indeterminate mild compression fracture of T1. Alignment is normal. No obvious bony spinal canal stenosis is present. There is mild diffuse degenerative disc disease. IMPRESSION: No cervical spine fracture identified. Mild age-indeterminate compression deformity of T1. Reviewed, Interpreted and Dictated by Meryl Wei MD Transcribed by Karen Flanagan Authenticated and [facility]
--- NOTE | 2025-01-23 10:06 | CT_ITS ---
FINAL REPORT TECHNIQUE: Thin section noncontrast axial CT with sagittal reconstructions. CLINICAL HISTORY: fall in shower onto L side, pain on entire L side FINDINGS: CT LUMBAR SPINE No fracture is present. Alignment is normal. There is moderate diffuse degenerative disc disease. The bones are osteopenic. There is degenerative canal stenosis at multiple levels. IMPRESSION: No acute abnormality. This study was performed using automated techniques to achieve radiation exposure as low as reasonably achievable Reviewed, Interpreted and Dictated by Meryl Wei MD Transcribed by Karen Flanagan Authenticated and . [facility]
--- NOTE | 2025-01-23 10:06 | CT_ITS ---
FINAL REPORT TECHNIQUE: Noncontrast exam This study was performed with techniques to keep radiation doses as low as reasonably achievable, (ALARA). Individualized dose reduction techniques using automated exposure control or adjustment of mA and/or kV according to the patient''s size were employed. CLINICAL HISTORY: fall in shower onto L side, pain on entire L side FINDINGS: No abnormal density is seen. Ventricles are normal. There is no hemorrhage. No mass effect is seen. Bone windows show no evidence of fracture. IMPRESSION: No acute findings Reviewed, Interpreted and Dictated by Meryl Wei MD Transcribed by Karen Flanagan Authenticated and [facility]
--- NOTE | 2025-01-23 10:06 | CT_ITS ---
FINAL REPORT TECHNIQUE: Axial CT without IV contrast administration. Coronal and sagittal images were obtained and reviewed. This study was performed with techniques to keep radiation doses as low as reasonably achievable, (ALARA). Individualized dose reduction techniques using automated exposure control or adjustment of mA and/or kV according to the patient''s size were employed. CLINICAL HISTORY: fall in shower onto L side, pain on entire L side COMPARISON: CTA chest 01/09/2025 FINDINGS: There is no evidence of pulmonary contusion or pneumothorax. There are numerous scattered small nodules, greatest in the lung bases. Many of these measure 4 mm or less and are compatible with granulomas. There is a trace left pleural effusion. No pericardial effusion is noted. The mediastinum is unremarkable. No adenopathy or mass lesion is present. There are acute fractures in the posterior left 9th, 10th, and 11th ribs without evidence of displacement. Limited images of the upper abdomen demonstrate cholelithiasis. IMPRESSION: Nondisplaced posterior lower left rib fractures without pneumothorax. Small left pleural effusion. Numerous tiny lung nodules, probable granulomas. Reviewed, Interpreted and Dictated by Meryl Wei MD Transcribed by Kelly Mack Authenticated and [facility]
--- NOTE | 2025-01-23 10:06 | CT_ITS ---
FINAL REPORT TECHNIQUE: Noncontrast exam This study was performed with techniques to keep radiation doses as low as reasonably achievable, (ALARA). Individualized dose reduction techniques using automated exposure control or adjustment of mA and/or kV according to the patient''s size were employed. CLINICAL HISTORY: fall in shower onto L side, pain on entire L side FINDINGS: Abdomen: Exam is limited without the benefit of contrast. The solid organs are grossly unremarkable. There is cholelithiasis. There is an indeterminate left renal lesion measuring 10 mm, likely a cyst. There is no evidence of free fluid or free air. No bowel obstruction is identified. Pelvis: The appendix is normal. There is moderate sigmoid diverticulosis. Uterus and ovaries are unremarkable. There are prominent collateral veins in the prepubic region which could be related to chronic left iliac-femoral venous occlusive disease. No distal ureteral stones are seen. Bladder is unremarkable. No fluid collection or adenopathy is seen. IMPRESSION: No obvious acute intra-abdominal findings. Reviewed, Interpreted and Dictated by Meryl Wei MD Transcribed by Karen Flanagan Authenticated and . [facility]
--- NOTE | 2025-01-23 10:06 | CT_ITS ---
FINAL REPORT CLINICAL HISTORY: fall in shower onto L side, pain on entire L side COMPARISON: None FINDINGS: CT THORACIC SPINE TECHNIQUE: Thin section axial CT with sagittal and coronal reconstructions This study was performed with techniques to keep radiation doses as low as reasonably achievable, (ALARA). Individualized dose reduction techniques using automated exposure control or adjustment of mA and/or kV according to the patientv's size were employed. There is an age indeterminate mild superior endplate compression fracture of T1. No other levels of fracture are identified. Alignment is normal. There is diffuse degenerative disc disease with probable canal stenosis within the lower thoracic spine. Again noted are fractures involving the posterior 8th through 11th ribs without evidence of displacement. IMPRESSION: Mild age-indeterminate T1 compression fracture . MRI could better confirm age of fracture. Nondisplaced posterior lower left rib fractures. Reviewed, Interpreted and Dictated by Meryl Wei MD Transcribed by Kelly Mack Authenticated and [facility]
[2025-01-23] MEDS: LIDOCAINE 5% TRANSDERMAL PATCH 1 EACH TP (10:13)
[2025-01-23] MEDS: ACETAMINOPHEN 500MG TAB 1000 MG PO (10:13)
[2025-01-23] MEDS: KETOROLAC 30MG/ML VIAL 30 MG IM (10:14)
[2025-01-23 10:30] VITALS: BP 184/110; PULSE 102; O2SAT 95
--- NOTE | 2025-01-23 10:40 | PC.NURSE ---
rounded on the pt. the pt voices that she does not need anything at this time. call light is within reach of the pt.
--- NOTE | 2025-01-23 11:05 | PC.NURSE ---
INSTRUCTED PT ON INCENTIVE SPIROMETER USE, PT UNABLE TO GET ABOVE 500. DEMONSTRATED SEVERAL TIME USE OF INCENTIVE SPIROMETER. PT STATES I JUST CAN'T, I'VE GOT THE COPD RESPIRATORY NOTIFIED TO ASSIST PT
--- NOTE | 2025-01-23 11:53 | PC.NURSE ---
Patient demonstrated proper use of the incentive spirometer and verbalized understand of discharge instructions.
[2025-01-23 11:54] VITALS: BP 166/75; PULSE 82; RESP 16; TEMP 36.7; O2SAT 97
--- NOTE | 2025-01-23 14:20 | PC.NURSE ---
Michell with Care Management called to notify that d/c medication for Methocarbamol is not approved with Insurance. Per Dr. Lentz, states she will need to follow up with PCP as Baclofen, Zanaflex, and Flexeril woulkd be too sedating for pt to have and possible interactions with home meds.
== END 2025-01-23 11:54 | disposition home or self-care (01) ==
PROVIDERS: Emergency Provider Emergency Medicine; PCP Internal Medicine
DX: S22.42XA Multiple fractures of ribs, left side, initial encounter for closed fracture (principal); R52 Pain, unspecified; Z79.01 Long term (current) use of anticoagulants; W18.2XXA Fall in (into) shower or empty bathtub, initial encounter; Y93.89 Activity, other specified; Y92.002 Bathroom of unspecified non-institutional (private) residence as the place of occurrence of the external cause
CPT/HCPCS: 70450; 71250; 72125; 72128; 72131; 74176; 96372; 99284; J1885

== ENCOUNTER 2025-02-23 11:41 | Emergency (ER) | payer MEDICARE, SELFPAY ==
[2025-02-23] VITALS (9 sets, daily range): BP systolic 100–131; BP diastolic 51–83; PULSE 76–99; RESP 16–20; TEMP 36.6–37.1; O2SAT 97–98; BMI 28.4
--- NOTE | 2025-02-23 11:45 | ED_ITS ---
Discharge Plan Disposition Patient Disposition: Home, Self-Care Condition: Fair Prescriptions Prescriptions: New acetaminophen 500 mg capsule 1,000 mg PO Q6H PRN (Reason: pain) Qty: 20 0RF diclofenac sodium [Arthritis Pain (diclofenac)] 1 % gel 2 g topical QID PRN (Reason: pain) Qty: 100 0RF Rx Instructions: apply to single elbow, wrist or hand; for hand includes palm/fingers/back of hand No Action ipratropium-albuterol 0.5 mg-3 mg(2.5 mg base)/3 mL solution for nebulization 3 ml inhalation Q4H PRN (Reason: wheezing) Qty: 180 8RF albuterol sulfate 90 mcg/actuation HFA aerosol inhaler 1 inh inhalation QID PRN (Reason: shortness of breath or wheezing) Qty: 8.5 8RF hydrochlorothiazide 12.5 mg tablet 12.5 mg PO DAILY Qty: 30 2RF Xarelto 20 mg tablet See Rx Instructions .ROUTE .COMPLEX Qty: 90 3RF Dose Instruction: TAKE 1 TABLET BY MOUTH ONCE DAILY WITH EVENING MEAL Rx Instructions: TAKE 1 TABLET BY MOUTH ONCE DAILY WITH EVENING MEAL methocarbamol 750 mg tablet 750 mg PO Q8H PRN (Reason: pain) Qty: 30 3RF lidocaine [Lidoderm] 5 % adhesive patch,medicated 1 patch topical DAILY Qty: 15 4RF Rx Instructions: leave on most painful area for up to 12 hrs rosuvastatin [Crestor] 5 mg tablet 5 mg PO DAILY Qty: 90 3RF aspirin 81 mg tablet,chewable 81 mg PO DAILY Qty: 90 0RF alendronate 70 mg tablet 70 mg PO WEEKLY Qty: 12 1RF lisinopril 10 mg tablet 10 mg PO DAILY Qty: 90 0RF calcium carbonate-vitamin D3 [Oyster Shell Calcium-Vit D3] 500 mg-5 mcg (200 unit) tablet 1 tab PO DAILY Patient Comments: TAKE 1 TABLET BY MOUTH ONCE DAILY FOR OSTEOPENIA lidocaine HCl 4 % adhesive patch,medicated 1 patch topical DAILY Qty: 30 0RF Referrals Follow up/Referrals: Jada Britt APRN [Primary Care Provider] - See instructions Activity Restrictions/Add. Instructions Additional Instructions/Restrictions: It is very important that you use your incentive spirometer 10 times every hour you are awake to prevent the development of pneumonia. Avoid taking methocarbamol as it could be causing some of your symptoms. Follow-up with your primary care provider as soon as possible to discuss having home health come visit more often Clinical Impressions Clinical Impression: Closed rib fracture, Atelectasis, Drug side effects Print Language Print Language: French Discharge ED Provider: Sara Diallo General Adult HPI General Chief complaint: Dizziness Stated complaint: Low blood pressure, ribs hurting Time Seen by Provider: 02/23/25 11:44 History of Present Illness HPI narrative: Patient is a 79-year-old with past medical history significant for prior DVT on rivaroxaban, recent rib fractures after a fall hypertension, CKD presents to the emergency department with rib pain. Patient fractured 3 ribs on the left side 1 month ago and has had pain since. Patient has been taking Tylenol without improvement of symptoms. She started taking methocarbamol 2 days ago and after starting this medication she felt lightheaded and woozy. Patient has been taking her blood pressure medication as her lisinopril was increased 2 weeks ago to 10 mg. Her blood pressures at home have been ranging systolics 90-140. Pain is severe despite taking Tylenol every 4 hours. She tried lidocaine patches in the past without improvement of symptoms. Related Data Home Medications ?Medication ?Instructions ?Recorded ?Confirmed calcium 500 mg (as 1 tab PO DAILY 01/09/25 02/19/25 carbonate)-vitamin D3 5 mcg (200 unit) tablet (Oyster Shell Calcium-Vitamin D3) Previous Rx's ?Medication ?Instructions ?Recorded aspirin 81 mg chewable tablet 81 mg PO DAILY PREVENTION #90 tabs 10/02/23 alendronate 70 mg tablet 70 mg PO WEEKLY #12 tabs 12/12/24 rosuvastatin 5 mg tablet (Crestor) 5 mg PO DAILY #90 tabs 12/19/24 lidocaine HCl 4 % topical patch 1 patch topical DAILY #30 ea 01/11/25 albuterol sulfate 90 mcg/actuation 1 inh inhalation QID PRN shortness 01/21/25 aerosol inhaler of breath or wheezing #8.5 grams ipratropium 0.5 mg-albuterol 3 mg 3 ml inhalation Q4H PRN wheezing 01/21/25 (2.5 mg base)/3 mL nebulization #180 mL soln lisinopril 10 mg tablet 10 mg PO DAILY #90 tabs 01/24/25 hydrochlorothiazide 12.5 mg tablet 12.5 mg PO DAILY #30 tabs 01/28/25 rivaroxaban 20 mg tablet (Xarelto) See Rx Instructions .Route 01/28/25 .COMPLEX Blood thinner #90 tabs lidocaine 5 % topical patch 1 patch topical DAILY #15 ea 02/19/25 (Lidoderm) methocarbamol 750 mg tablet 750 mg PO Q8H PRN pain #30 tabs 02/19/25 acetaminophen 500 mg capsule 1,000 mg (2 x 500 mg) PO Q6H PRN 02/23/25 pain #20 caps diclofenac sodium 1 % topical gel 2 g topical QID PRN pain #100 grams 02/23/25 (Arthritis Pain (diclofenac)) Allergies Allergy/AdvReac Type Severity Reaction Status Date / Time amoxicillin (From Augmentin) Allergy Mild Vomiting Verified 02/19/25 13:44 clavulanic acid (From Allergy Mild Vomiting Verified 02/19/25 13:44 Augmentin) [facility] Disclaimer: The information contained in this section may have been updated after the patient was seen, as this information can be updated by other users. Medical History (Updated 02/23/25 @ 14:53 by Sara Diallo MD) Contusion of hip Left forearm pain Left wrist pain Left wrist sprain Fracture of transverse process of lumbar vertebra Ecchymosis Contusion of muscle Skin cancer Multiple lung nodules on CT Allergic rhinitis COPD mixed type Multiple pulmonary nodules Pulmonary emphysema Dyspnea on exertion Community acquired pneumonia Dvt femoral (deep venous thrombosis) Dvt femoral (deep venous thrombosis) Lingular pneumonia Bacterial vaginosis Vaginal pain Dysuria Pulmonary nodule Surgical History History of tubal ligation Family History Other Family history of cancer Kidney disease Social History (Updated 02/23/25 @ 14:17 by Arpita Quinones RN) Smoking Status: Never smoker alcohol intake: never substance use type: denies use current occupational status: retired Travel in the last 8 weeks: None household members: children housing: house caffeine: No Have you lived/traveled outside [place] in past 30 days?: No Contact w/someone who lives/traveled outside US past 30 days?: No Exposure to someone with infectious disease in past 14 days?: No Do you have a fever (greater than 100.4 F or 38 C)?: No Have you tested positive for COVID-19: No Exposed to someone with COVID-19 in past 14 days?: No Do you have a sore throat?: No Do you have a cough?: No Do you have any weakness?: No Do you have any diarrhea?: No Are you experiencing any unusual bleeding?: No Do you have any muscle aches/pain?: Yes Do you have any abdominal pain?: No Are you experiencing loss of taste or smell?: No Other Medical History Have you received the Flu Vaccine for this season: No Have you received the Pneumonia Vaccine: No ROS Obtained: Yes All systems reviewed & no additional complaints except as documented Physical Exam General General appearance: alert and in no apparent distress Chest Chest inspection: Present tenderness (Left chest wall with associated bruising) Respiratory Respiratory exam: Present wheezes Cardiovascular Cardiovascular exam: Present regular rate and normal rhythm Abdominal Exam Abdominal exam: Present soft; Absent tenderness Neurological Exam Neurological exam: Present alert and oriented X3 Medical Decision Making Medical Records Screening: Per USPSTF and CDC recommendations, given the prevalence of disease in our region, it is our hospital?s policy to screen for HIV and viral Hepatitis for all patients aged 18 and over and those with ongoing risk factors. Tavo Inquiry Pt receiving controlled substance: No Vital Signs: 02/23/25 11:48 02/23/25 11:53 02/23/25 12:00 Temperature 97.8 F Temperature Source Oral Pulse Rate 99 H 95 H Pulse Rate [Right] 89 Respiratory Rate 18 Blood Pressure 116/83 100/62 L Blood Pressure [Right Arm] 116/83 Blood Pressure Mean Blood Pressure Mean [Right Arm] 94 Blood Pressure Source [Right Arm] Automatic Cuff Blood Pressure Position [Right Arm] Sitting 02 Sat by Pulse Oximetry 98 98 97 Oxygen Delivery Method Room Air Room Air Room Air 02/23/25 12:31 02/23/25 13:00 02/23/25 13:15 Temperature Temperature Source Pulse Rate 82 76 79 Pulse Rate [Right] Respiratory Rate Blood Pressure 112/59 L 120/59 L Blood Pressure [Right Arm] Blood Pressure Mean Blood Pressure Mean [Right Arm] Blood Pressure Source [Right Arm] Blood Pressure Position [Right Arm] 02 Sat by Pulse Oximetry 98 97 98 Oxygen Delivery Method Room Air Room Air 02/23/25 13:30 02/23/25 14:01 Temperature Temperature Source Pulse Rate 76 82 Pulse Rate [Right] Respiratory Rate 16 Blood Pressure 131/59 L 119/51 L Blood Pressure [Right Arm] Blood Pressure Mean 74 Blood Pressure Mean [Right Arm] Blood Pressure Source [Right Arm] Blood Pressure Position [Right Arm] 02 Sat by Pulse Oximetry 98 97 Oxygen Delivery Method Lab Data Lab Results 02/23/25 11:54: WBC 8.6, RBC 4.21, Hgb 11.4 L, Hct 35.8 L, MCV 85.0, MCH 27.1, MCHC 31.8, RDW 16.2, Plt Count 274, MPV 10.1, Neut % (Auto) 71.8, Lymph % (Auto) 19.8, Loup % (Auto) 6.2, Eos % (Auto) 1.4, Baso % (Auto) 0.6, Neut # (Auto) 6.2, Lymph # (Auto) 1.7, Loup # (Auto) 0.5, Eos # (Auto) 0.1, Baso # (Auto) 0.1, Sodium 139, Potassium 4.6, Chloride 101, Carbon Dioxide 28, Anion Gap 14.6, BUN 29 H, Creatinine 1.80 H, Estimated Creat Clear 32, Estimated GFR 27 L, Est GFR ( Amer) 33 L, Glucose 108 H, Calcium 10.8 H, Total Bilirubin 0.5, AST 24, ALT 17, Alkaline Phosphatase 56, Troponin I < 0.01, Total Protein 7.0, Albumin 4.4, Globulin 2.6, Albumin/Globulin Ratio 1.7 02/23/25 11:54 02/23/25 11:54 Orders (Tests/Meds): ED MEDICATIONS Generic Name Dose Route Start Last Admin Trade Name Freq PRN Reason Stop Dose Admin Oxycodone HCl 5 mg 02/23/25 13:43 02/23/25 14:13 Oxycodone 5mg Immediate Release Tablet PO 03/25/25 13:42 5 mg Q4HP PRN Administration Severe Pain (7-10) Discontinued Medications Generic Name Dose Route Start Last Admin Trade Name Freq PRN Reason Stop Dose Admin Acetaminophen 1,000 mg 02/23/25 12:05 02/23/25 12:12 Acetaminophen 500mg Tab PO 02/23/25 12:06 1,000 mg ONCE ONE Administration Lactated Ringer's 500 mls @ 999 mls/hr 02/23/25 12:09 02/23/25 12:12 Lactated Ringer's 500ml IV 02/23/25 12:39 999 mls/hr .Q31M ONE Administration ORDERS Category Date Time Status XR chest 2V Stat Exams 02/23/25 12:05 Completed Complete Blood Count Auto Diff Stat Lab 02/23/25 11:54 Completed Comprehensive Metabolic Panel Stat Lab 02/23/25 11:54 Completed Troponin I Q3H Lab 02/23/25 15:15 Ordered Troponin I Q3H Lab 02/23/25 18:15 Ordered Troponin I Stat Lab 02/23/25 11:54 Completed Medical Decision Narrative: In summary, this 79-year-old female presents to the emergency department today with left chest wall pain. On initial evaluation patient is hemodynamically stable saturating appropriately on room air afebrile no acute distress. Differential diagnosis includes but is not limited to empyema retained hemothorax side effect of medications pneumonia ACS. Based on these concerns, I ordered CBC CMP troponin chest x-ray CT PE EKG. Patient able to pull 750 on incentive spirometry ECG personally interpreted demonstrates normal sinus rhythm normal rate no ST elevation ST depression or T wave inversion concerning for ischemia Patient received Tylenol for treatment. Patient continued to have symptoms of was given 1 dose of oxycodone. Explained to patient that narcotics 1 month out from injury are not likely to alleviate symptoms long-term. Patient has an incentive spirometer and has not been using it at home. She also has home health and is only been working with home health once a week on exercises. I emphasized the importance of her doing daily exercises that home health gives her for rehabilitation and improving her strength in the setting of a fall 1 month ago and rib fractures. I also emphasized the importance of doing incentive spirometer 10 times every hour when awake to prevent the development of pneumonia as she already has notable atelectasis without retained hemothorax or empyema on her chest x-ray. Patient does not have production of sputum and no leukocytosis lower suspicion for pneumonia at this time. Patient was offered admission for possible rehabilitation however patient does not want to go to acute rehabilitation and would rather go home. Patient given strict return precautions including the development of productive sputum or fever or new or worsening symptoms. Critical Care Critical Care Time Critical Care Time: No
--- NOTE | 2025-02-23 11:54 | ECG_ITS ---
APPROVED REPORT Exam: Resting ECG HR:88 bpm ECG Measurements Heart Rate 88 AXES NH 157 P 59 QRSd 82 QRS 65 QT 317 T 58 QTc 363 Conclusion SINUS RHYTHM WITH OCCASIONAL VENTRICULAR PREMATURE COMPLEXES POSSIBLE LEFT ATRIAL ENLARGEMENT [-0.1mV P-WAVE IN V1/V2] POSSIBLE RIGHT VENTRICULAR CONDUCTION DELAY [RSR (QR) IN V1/V2] No STEMI Electronically signed by : MARIO WALKER, 02/24/2025 00:26:43
--- NOTE | 2025-02-23 12:05 | XR_ITS ---
PROCEDURE INFORMATION: Exam: XR Chest Exam date and time: 02/23/2025 12:59 PM Age: 79 years old Clinical indication: Pain; Other: Cp, SOA, complication of prior rib FX TECHNIQUE: Imaging protocol: Radiologic exam of the chest. Views: 2 views. COMPARISON: CT CHEST WO CON 01/23/2025 10:21 AM FINDINGS: Lungs: Hazy airspace opacities in left lower lobe could be attributed to atelectasis versus developing pneumonia/aspiration in the appropriate clinical context. Pleural spaces: Unremarkable. No pleural effusion. No pneumothorax. Heart/Mediastinum: Unremarkable. No cardiomegaly. Bones/joints: Known left rib fractures are better characterized on prior chest CT. IMPRESSION: Hazy airspace opacities in left lower lobe could be attributed to atelectasis versus developing pneumonia/aspiration in the appropriate clinical context.
[2025-02-23] MEDS: ACETAMINOPHEN 500MG TAB 1000 MG PO (12:12)
[2025-02-23] MEDS: RINGERS SOLUTION,LACTATED 500 ML 999 ML IV (12:12)
--- NOTE | 2025-02-23 12:14 | PC.NURSE ---
TRN instructed pt on use of incentive spirometry. pt was able to pull 500mL.
[2025-02-23 12:34] LABS: Basophils # 0.1 K/mm3 (0-0.2); Basophils % 0.6 % (0.1-2.0); Eosinophils # 0.1 K/mm3 (0.0-0.4); Eosinophils % 1.4 % (0.1-12.0); Hematocrit 35.8 % (37.0-47.0); Hemoglobin 11.4 g/dL (12.2-16.2); Lymphocytes # 1.7 K/mm3 (0.7-4.5); Lymphocytes % 19.8 % (10-50); Mean Corpuscular HGB Conc 31.8 g/dL (31.8-35.4); Mean Corpuscular Hemoglobin 27.1 pg (27.0-31.2); Mean Platelet Volume 10.1 fl (7.4-10.4); Monocytes # 0.5 K/mm3 (0.1-1.0); Monocytes % 6.2 % (1.7-9.3); Neutrophils # 6.2 K/mm3 (1.8-7.8); Neutrophils % 71.8 % (37.0-80.0); Platelet Count 274 K/mm3 (142-424); Red Blood Count 4.21 M/mm3 (4.20-5.40); Red Cell Distribution Width 16.2 % (11.5-17.5); White Blood Count 8.6 K/mm3 (4.8-10.8)
[2025-02-23 12:44] LABS: Alanine Aminotransferase 17 U/L (12-78); Albumin Level 4.4 g/dl (3.5-5.0); Albumin/Globulin Ratio 1.7 (1.1-1.8); Alkaline Phosphatase 56 U/L (38-126); Anion Gap 14.6 mEq/L (5-15); Aspartate Amino Transferase 24 U/L (14-36); Bilirubin,Total 0.5 mg/dl (0.2-1.3); Blood Urea Nitrogen 29 mg/dl (7-17); Calcium 10.8 mg/dl (8.4-10.2); Carbon Dioxide 28 mmol/L (22.0-30.0); Chloride 101 mmol/L (98-107); Creatinine Clearance Estimated 32 mL/min (50-200); Estimated Glomerular Filt Rate 27 ml/min (>60); GFR (African American) 33 ML/MIN (>60); Globulin 2.6 g/dL (1.3-3.2); Glucose 108 mg/dl (74-100); Potassium 4.6 mmoL/L (3.5-5.1); Sodium 139 mmol/L (136-145)
[2025-02-23 13:30] LABS: Troponin I < 0.01 ng/ml (0.00-0.034)
[2025-02-23] MEDS: OXYCODONE 5MG IMMEDIATE RELEASE TABLET 5 MG PO (14:13)
== END 2025-02-23 14:57 | disposition home or self-care (01) ==
PROVIDERS: Emergency Provider Student in an Organized Health Care Education/Training Program; PCP Nurse Practitioner Family
DX: J98.11 Atelectasis (principal); R07.81 Pleurodynia; R42 Dizziness and giddiness; S22.39XA Fracture of one rib, unspecified side, initial encounter for closed fracture; M81.0 Age-related osteoporosis without current pathological fracture; J44.9 Chronic obstructive pulmonary disease, unspecified; Z79.01 Long term (current) use of anticoagulants
CPT/HCPCS: 71046; 80053; 84484; 85025; 93005; 96360; 99284; J7120

== ENCOUNTER 2025-06-20 11:20 | Outpatient (CLI) | payer MEDICARE, OTHER, SELFPAY ==
--- OUTSIDE RECORDS SUMMARY | 2025-05-12 06:00 | XMS_ITS ---
Author Organization [facility] Address [address] [facility] [address] [facility] [address] [place] [address] Care Team Providers Care Boiler House Operator Name Role Phone Jada Britt Primary Care Provider [phone] JADA BRITT Unavailable Unavaila ble REASON FOR VISIT 2 month check up Encounters Encounter Location Date Provider Diagnosis [facility] [address] [facility] [address] [place] [address] 05/12/2025 Jada Britt Plan Of Treatment Next Appt Details Provider Name:Jada Baxter , 06/20/2025 11:45:00 AM, [address] [place] [address] [facility], [address], [place], [place], [address], Progress Notes * Masha BAILON LouDOB:[birth year] (79 yo F)Acc No.[id number]:05/12/2025 Progress Notes Patient: Pradip CHOWDHURYdong Long Provider: MATT Cabral :1945 A ge:79 Y S ex:Female Date:05/12/2025 Address:[address] [place], [place] Subjective: * Chief Complaints: * 1 . 2 month check up. * Medical History: Objective: * Vitals: Assessment: Plan: * Treatment: * * Electronic signature of Brittny Britt APRN on 06/20/2025 at 11:24 AM EDT Sign off status: Pending * Provider: MATT Cabral Date: 0 05/12/2025 Generated for Kg junior/Raymond/Lawanda on: 0 06/20/2025 11:24 AM EDT
--- OUTSIDE RECORDS SUMMARY | 2025-06-20 11:24 | XMS_ITS | Patient Health Record ---
Author Organization [facility] Address [address] [place] [address] Care Team Providers Care Ventilating Engineer Name Role Phone Lorenza Jada Primary Care Provider [phone] JADA BRITT Unavailable Unavaila sandra Jada Martínez Unavailable [phone] Migration, Provider Unavailable Unavailable Allergies No Known Allergies Results Component Value Reference Range Notes CBC (INCLUDES DIFF/PLT) (339 9) Reviewed date:03/12/2025 08:14:58 AM Interpretation: Performing Lab:[facility], [facility] [id number], [id number] [place] Car[place] Notes/Report: NON-FASTING; NON-FASTING; NON-FASTING WHITE BLOOD CELL COUNT 6.2 3.8-10.8 Thousand/ uL RED BLOOD CELL COUNT 3.73 3.80-5.10 Million/uL HEMOGLOBIN 10.2 11.7-15.5 g/dL HEMATOCRIT 32.5 35.0-45.0 % MCV 87.1 80.0-100.0 fL MCH 27.3 27.0-33.0 pg MCHC 31.4 32.0-36.0 g/dL For adults, a slight decrease in the calculated MCHC value (in the range of 30 to 32 g/dL) is most likely not clinically significant; however, it should be interpreted with caution in correlation with other red cell parameters and the patient's clinical condition. RDW 15.9 11.0-15.0 % PLATELET COUNT 285 140-400 Thousand/uL MPV 10.6 7.5-12.5 fL ABSOLUTE NEUTROPHILS 3224 2606-0217 cells/uL ABSOLUTE LYMPHOCYTES 2108 850-3900 cells/uL ABSOLUTE MONOCYTES 477 200-950 cells/uL ABSOLUTE EOSINOPHILS 329 15-500 cells/uL ABSOLUTE BASOPHILS 62 0-200 cells/uL NEUTROPHILS 52 LYMPHOCYTES 34.0 MONOCYTES 7.7 EOSINOPHILS 5.3 BASOPHILS 1.0 MAGNESIUM (622) Reviewed date:03/12/2025 08:14:58 AM Interpretation: Performing Lab:[facility], [facility] [id number] [employer], [facility]lx[facility]MO[address] [place] Car[place] Notes/Report: NON-FASTING; NON-FASTING; NON-FASTING MAGNESIUM 2.1 1.5-2.5 mg/dL BASIC METABOLIC PANEL (22614 ) Reviewed date:03/12/2025 08:14:58 AM Interpretation: Performing Lab:[facility], [facility] [id number] [facility], [id number] [place] Car[place] Notes/Report: NON-FASTING; NON-FASTING; NON-FASTING GLUCOSE 93 65-99 mg/dL Fasting reference interval UREA NITROGEN (BUN) 24 7-25 mg/dL CREATININE 1.66 0.60-1.00 mg/dL EGFR 31 > OR = 60 mL/min/1.73m2 BUN/CREATININE RATIO 14 6-22 (calc) SODIUM 139 135-146 mmol/L POTASSIUM 4.4 3.5-5.3 mmol/L CHLORIDE 104 98-110 mmol/L CARBON DIOXIDE 27 20-32 mmol/L CALCIUM 9.9 8.6-10.4 mg/dL Reason For Referral No Information Medications Medication SIG (Take, Route, Frequency, Duration) Notes Start Date End Date Status Furosemide 20 MG 1 tab(s) orally once a day; Duration: 90 days 02/28/2025 Active Rosuvastatin Calcium 5 MG 1 tab(s) orall y once a day Active ALL DAY ALLERGY (CETIRIZINE) 10 MG 1 TAB(S) ORALLY ONCE A DAY Active Alendronate Sodium 70 MG 1 tab(s) orally once a week; Duration: 84 days Active Oyster Shell Calcium + D 500 MG-5 MCG 1 TAB(S) ORALLY ONCE A DAY Active Cefdinir 300 MG 1 tab Orally every 1 2 hours; Duration: 7 days 06/20/2025 Active Xarelto 20 MG 1 tab(s) orally once a day (in the evening) Active Famotidine 40 MG 1 tab(s) orally once a day (at bedtime); Duration: 30 days 02/28/2025 Active Aspirin 81 MG 1 tab(s) orally once a day Active Albuterol Sulfate (2.5 MG/3ML) 0.083% 3 mL as needed for COPD symptoms Inhalation every 6 hrs; Duration: 30 days 04/15/2025 Active Ventolin HFA 108 (90 Base) MCG/ACT 1-2 puffs as needed for COPD symptoms Inhalation every 6 hours; Duration: 30 days 04/15/2025 Active Symbicort 160-4.5 MCG/ACT 2 puffs Inhala tion twice a day; Duration: 30 days 04/15/2025 Active Social History Tobacco Use: Social History Observation Description Date Details (start date - stop date) Never Smoker NA - NA Tobacco Control (Standard) Question Answer Notes Tobacco use: Nonsmoker Problems Problem Type SNOMED Code ICD Code Onset Dates Problem Status W/U Status Risk Notes Problem COPD - Chronic obstructive pulmonary disease (40093304) Chronic obstructive pulmonary disease, unspecified COPD type (J44.9) Active confirmed Problem Allergic rhinitis (38703031) Acute allergic rhinitis (J30.9) Active confirmed Problem Anemia (242206894) Mild anemia (D64.9) Active confirmed Problem Varicose veins of bilateral lower limbs (315994331523585 06) Symptomatic varicose veins of both lower extremities (I83.893) Active confirmed Vital Signs Heart Rate 84 /min 04/15/2025 Temperature 97.5 degrees Fahrenheit 04/15/2025 Blood pressure diastolic 64 mm Hg 04/15/2025 Height 66 in 04/15/2025 Blood pressure systolic 144 mm Hg 04/15/2025 Weight 168.8 lbs 04/15/2025 BMI 27.24 kg/m2 04/15/2025 Encounters Encounter Location Date Provider Diagnosis [facility] [address] [place] [address] 03/01/2025 Provider Migration Chronic obstructive pulmonary disease, unspecified COPD type J44.9 ; Lower extremity edema R60.0 and Functional nausea R11.0 [facility] [address] [facility] [address] [place] [address] 02/28/2025 Jada Britt Chronic obstructive pulmonary disease, unspecified COPD type J44.9 ; Lung nodules R91.8 ; Closed fracture of multiple ribs of left side, sequela S22.42XS ; Lower extremity edema R60.0 ; Symptomatic varicose veins of both lower extremities I83.893 ; History of DVT (deep vein thrombosis) Z86.718 ; Functional nausea R11.0 ; EDDA (acute kidney injury) N17.9 and Mild anemia D64.9 [facility] [address] [facility] [address] [place] [address] 03/10/2025 Jada Britt Chronic obstructive pulmonary disease, unspecified COPD type J44.9 ; Closed fracture of multiple ribs of left side, sequela S22.42XS ; Lower extremity edema R60.0 ; EDDA (acute kidney injury) N17.9 and Mild anemia D64.9 [facility] [address] [facility] [address] [place] [address] 04/15/2025 Jada Britt Acute allergic rhinitis J30.9 and Chronic obstructive pulmonary disease, unspecified COPD type J44.9 [facility] [address] [facility] [address] [place] [address] 02/24/2025 Jada Britt [facility] [address] [facility] [address] [place] [address] 06/09/2025 Jada Britt Lower extremity edema R60.0 Assessments Encounter Date Diagnosis (ICD Code) Assessment Notes Treatment Notes Treatment Clinical Notes Section Notes 02/28/2025 Lung nodules (ICD-10 - R91.8) noted on imaging for several years and stable most recently 02/28/2025 Chronic obstructive pulmonary disease, unspecified COPD type (ICD-10 - J44.9) COPD and rib fractures contributing to SOA...start Stiolto, continue use of IS 03/01/2025 Chronic obstructive pulmonary disease, unspecified COPD type (ICD-10 - J44.9) 03/10/2025 Chronic obstructive pulmonary disease, unspecified COPD type (ICD-10 - J44.9) trial of Anoro 04/15/2025 Chronic obstructive pulmonary disease, unspecified COPD type (ICD-10 - J44.9) 04/15/2025 Acute allergic rhinitis (ICD-10 - J30.9) continue cetirizine daily, steroid injection given today 06/09/2025 Lower extremity edema (ICD-10 - R60.0) 03/10/2025 Closed fracture of multiple ribs of left side, sequela (ICD-10 - S22.42XS) pain improving, continue tylenol, topical diclofenac 02/28/2025 Closed fracture of multiple ribs of left side, sequela (ICD-10 - S22.42XS) pain improving, continue tylenol, topical diclofenac 02/28/2025 Lower extremity edema (ICD-10 - R60.0) rec transition from HCTZ to Lasix which should hopefully decrease lightheadness and not impact renal function 03/10/2025 Lower extremity edema (ICD-10 - R60.0) stable with lasix, labs today as noted 03/01/2025 Lower extremity edema (ICD-10 - R60.0) 02/28/2025 Symptomatic varicose veins of both lower extremities (ICD-10 - I83.893) 02/28/2025 History of DVT (deep vein thrombosis) (ICD-10 - Z86.718) 02/28/2025 Functional nausea (ICD-10 - R11.0) 03/01/2025 Functional nausea (ICD-10 - R11.0) 03/10/2025 EDDA (acute kidney injury) (ICD-10 - N17.9) elevated creatinine 1.8 above her baseline, rec repeat BMP 02/28/2025 EDDA (acute kidney injury) (ICD-10 - N17.9) elevated creatinine 1.8 above her baseline, rec repeat BMP in 2-4 weeks 02/28/2025 Mild anemia (ICD-10 - D64.9) stable, monitor 03/10/2025 Mild anemia (ICD-10 - D64.9) stable, monitor Plan Of Treatment Next Appt Details Provider Name:Jada avalos, 06/20/2025 11:45:00 AM, [address], [place], [address], Insurance Providers Payer Name Payer Address Payer Phone Subscriber Number Group Number Insured Name Patient Relationship to Insured Coverage Start Date Coverage End [place] [address] [place] [phone] [id number] Masha Birch Self - patient is the insured [address] [address] [id number] Masha Birch Self - patient is the insured Medications Administered Medication Instructions Date of Administration Dosage Notes Dexamethasone 4mg Injection 04/15/2025 4 mg Medical (General) History Medical History History ICD Code COPD HTN Osteoporosis Blood Clots DDD Hyperlipidemia CKD Surgical History Surgery Date(Month/Year) Back surgery 1999 tubal ligation Hospitalization History Reason Date(Month/Year) blood clots pneumonia above surgeries
--- OUTSIDE RECORDS SUMMARY | 2025-06-20 11:25 | XMS_ITS | Clinical Summary ---
Author Organization [facility] Address [address] [place] [address] Care Team Providers Care Paid Search Specialist Name Role Phone Carlos Mendieta MD Primary Care Provider [phone] Family History Medical History Relation Name Comments Conversions - Other Father malignan t neoplasm of skin Kidney failure Mother Other cancer Other Relation Name Status Comments Father Mother Other Social History Tobacco Use Types Packs/Day Years Used Date Smoking Tobacco: Never Alcohol Use Standard Drinks/Week Comments No 0 (1 standard drink = 0.6 oz pure alcohol) Alcoholic Drinks/day: Denies alcohol consumption Comments Unknown Sex and Gender Information Value Date Recorded Sex Assigned at Not on file Legal Sex Female 8:54 PM EDT Gender Identity Not on file Sexual Orientation Not on file Last Filed Vital Signs Vital Sign Reading Time Taken Comments Blood Pressure 145/85 07/27/2020 2:49 PM EDT Pulse 84 07/27/2020 2:49 PM EDT Temperature 36.7 C (98.1 F) 07/27/2020 2:49 PM EDT Respiratory Rate 16 07/27/2020 2:49 PM EDT Oxygen Saturation - - Inhaled Oxygen Concentration - - Weight 79.1 kg (174 lb 6.1 oz) 07/27/2020 2:49 P M EDT Height 165.1 cm (5' 5 ) 06/10/2019 2:30 PM EDT Body Mass Index 29.02 06/10/2019 2:30 PM EDT Plan of Treatment Health Maintenance Due Date Last Done Comments [facility]-Bone Density Scan 1945 [facility]-Depression Screening 1945 [facility]-/Child/Adol SDOH Screenings 1945 [facility]- SDOH Screenings 1964 [facility]-Adult SDOH Screenings 1964 [facility]-DTaP,Tdap,and Td Vaccines (1 - Tdap) 1965 [facility]-Zoster Vaccines (1 of 2) 1996 [facility]-Pneumococcal Vaccine: 50+ Years (2 of 2 - PPSV23) 10/05/2017 10/05/2016 [facility]-RSV Vaccine: 60+ Years or (1 - 1-dose 75+ series) 2021 [facility]-CEAOD-25 Vaccine (4 - 2023- season) 2024 12/08/2021, 03/18/2021, 02/18/2021 [facility]-Influenza Vaccine (#1) 07/28/202510/03, 09/21/2022, 09/13/2021, Additional history exists HPV Vaccines Aged Out No longer eligi ble based on patient's age to complete this topic [facility]-HIB Vaccines Aged Out No longer e ligible based on patient's age to complete this topic [facility]-Hepatitis A Vaccines Aged Out No longer eligible based on patient's age to complete this topic [facility]-IPV Vaccines Aged Out No longer e ligible based on patient's age to complete this topic [facility]-Rotavirus Vaccines Aged Out No lo nger eligible based on patient's age to complete this topic Insurance MEDICARE Care Teams Paid Search Specialist Relationship Specialty Start Date End Date Carlos Mendieta MD [address] [place] [address] PCP - General 04/09/21
== END 2025-06-20 23:59 | disposition home or self-care (01) ==
LOC: LAB 11:22
PROVIDERS: PCP Nurse Practitioner Family; Visit Provider Physician Assistant
DX: R82.90 Unspecified abnormal findings in urine (principal)
CPT/HCPCS: 87086